=== PATIENT | female | born 1965 | race Caucasian/White ===

== ENCOUNTER 2020-07-30 05:07 | Observation (INO) ==
--- NOTE | 2020-06-28 13:49 | PAT Medication Instructions ---
Medication Instructions Date of Service June 28, 2020 Home Medications aspirin 81 mg tablet,delayed release 81 mg PO QAM ibuprofen 200 mg tablet 600 mg PO Q6H PRN acetaminophen-codeine [Tylenol-Codeine #3] 1 tab PO BID PRN buspirone 5 mg PO BID diazepam [Valium] 10 mg PO TID fluoxetine [Prozac] 20 mg PO QAM fluticasone propionate [Flonase] 2 spray INTRANASAL HS gabapentin 100 mg PO TID glimepiride 2 mg PO QAM insulin lispro [Humalog KwikPen Insulin] 5 unit SUBCUT TID liraglutide [Victoza 2-Yao] 1.8 mg SUBCUT QAM lisinopril 10 mg PO QAM nifedipine 90 mg PO QAM ropinirole 0.5 mg PO HS simvastatin 20 mg PO HS ASK your surgeon for instructions ibuprofen 200 mg tablet 600 mg PO Q6H PRN DO NOT take the morning of surgery glimepiride 2 mg PO QAM insulin lispro [Humalog KwikPen Insulin] 5 unit SUBCUT TID lisinopril 10 mg PO QAM Take morning of surgery With a small sip of water, OTHERWISE NOTHING TO EAT OR DRINK AFTER MIDNIGHT: aspirin 81 mg tablet,delayed release 81 mg PO QAM acetaminophen-codeine [Tylenol-Codeine #3] 1 tab PO BID PRN (okay to take up to 4 hours prior to surgery if needed) buspirone 5 mg PO BID diazepam [Valium] 10 mg PO TID fluoxetine [Prozac] 20 mg PO QAM gabapentin 100 mg PO TID liraglutide [Victoza 2-Yao] 1.8 mg SUBCUT QAM nifedipine 90 mg PO QAM Take evening before surgery acetaminophen-codeine [Tylenol-Codeine #3] 1 tab PO BID PRN (if needed) buspirone 5 mg PO BID diazepam [Valium] 10 mg PO TID fluticasone propionate [Flonase] 2 spray INTRANASAL HS gabapentin 100 mg PO TID insulin lispro [Humalog KwikPen Insulin] 5 unit SUBCUT TID ropinirole 0.5 mg PO HS simvastatin 20 mg PO HS Other Notes If you have any questions please call us at [phone] or [phone] or [phone] or [phone]
--- NOTE | 2020-06-29 13:02 | Anesthesiology Consultation ---
Date of Service June 29, 2020 Assessment & Plan (1) Encounter for pre-operative examination: - Difficult stick: Difficulty at obtaining preop labs during PAT visit (patient refusing further attempts). Able to obtain tubes for all preop labs except T&S. Patient denies hx of blood transfusions. July at surgeon's office made aware. Will plan for T&S AM DOS unless surgeon wishes to arrange for patient to have done prior. - Cardiology: Patient states they are scheduled to see cardiology prior to bethany rachel. Awaiting office visit note and most recent ECHO. - Per assessment on 06/29: Travel screen negative. No known COVID-19 positive co ntacts or current COVID-19 related symptoms. Surgeon arranging preop COVID testing (per Gloria at surgeon's office, they are attempting to have patient do preop COVID testing closer to home/[place] but official location [facility]). Awaiting results. - Check BSG AM DOS Chart Review Chart Review: Patient seen in Pre Admission Testing Teaching & Discussion Pre-Anesthesia Teaching/Discussion Notes: Instructed NPO after midnight before surgery,except medications with 15 cc of water. Medication instructions provided according to the PAT guidelines. History Surgery Operation Date: 08/06/20 07:15 Proposed Procedures p Left Total Knee Arthroplasty - Chad Zapata, Height/Weight Height: 5 ft 10 in Weight: 151.2 kg Allergies Allergy/AdvReac Type Severity Reaction Status Date / Time sulfamethoxazole Allergy Intermediate Hives Verified 06/28/20 12:05 [From Bactrim] trimethoprim [From Bactrim] Allergy Intermediate Hives Verified 06/28/20 12:05 Medications Home Medications Medication Instructions Recorded Confirmed Last Taken aspirin 81 mg tablet,delayed 81 mg PO QAM 06/02/20 06/28/20 Unknown release ibuprofen 200 mg tablet 600 mg PO Q6H PRN 06/02/20 06/28/20 Unknown acetaminophen-codeine 1 tab PO BID PRN 06/28/20 06/28/20 Unknown [Tylenol-Codeine #3] buspirone 5 mg PO BID 06/28/20 06/28/20 Unknown diazepam [Valium] 10 mg PO TID 06/28/20 06/28/20 Unknown fluoxetine [Prozac] 20 mg PO QAM 06/28/20 06/28/20 Unknown fluticasone propionate [Flonase] 2 spray INTRANASAL HS 06/28/20 06/28/20 Unknown gabapentin 100 mg PO TID 06/28/20 06/28/20 Unknown glimepiride 2 mg PO QAM 06/28/20 06/28/20 Unknown insulin lispro [Humalog KwikPen 5 unit SUBCUT TID 06/28/20 06/28/20 Unknown Insulin] liraglutide [Victoza 2-Yao] 1.8 mg SUBCUT QAM 06/28/20 06/28/20 Unknown lisinopril 10 mg PO QAM 06/28/20 06/28/20 Unknown nifedipine 90 mg PO QAM 06/28/20 06/28/20 Unknown ropinirole 0.5 mg PO HS 06/28/20 06/28/20 Unknown simvastatin 20 mg PO HS 06/28/20 06/28/20 Unknown Wheeled Walker #1 ea 06/29/20 06/29/20 Unknown Past Medical History Medical History Arthritis Asthma stable Depression Diabetes mellitus, type 2 IDDM Hyperlipidemia Hypertension Insomnia Morbid obesity Myocardial Infarction 10 years ago > medical management Peripheral neuropathy Restless leg syndrome Tricuspid valve disease Tricuspid regurgitation (no further details per patient), follows with cardiology (Dr. Valladares) Exercise / Class Metabolic Activity III < 4 Walking/Shop/Light housework Past Family History Family History Other No family history of adverse response to anesthesia Past Surgical History Surgical History History of cardiac cath 10 years ago > no stents ([place]) History of carpal tunnel release R/L History of cholecystectomy History of colonoscopy History of hysterectomy History of knee replacement Right History of tonsillectomy and adenoidectomy [place] teeth removed Past Anesthesia History No Hx of Anesthesia Complications and No Family Hx of Anesthesia Complications History of PONV No Hx of PONV and No Hx of Motion Sickness Social History Smoking Status: Former smoker tobacco type: cigarettes Do You Dip or Chew Tobacco: No Smoking End Date: Quit 40 year ago (hx tobacco use x one month) Hx Alcohol Use: No Hx Substance Use: No substance use type: does not use Review of Systems Patient denies chest pain, shortness of breath, dyspnea on exertion, joint pain, reflux, cough, wheezing, palpitations. Physical Exam Vital Signs VITALS BP 114/69 P 63 TEMP 97.8 SP02 93%RA RESP 18 PHYSICAL Full neck and c-spine range of motion. Full TMJ range of motion. TMD 4 finger breaths Mallampati Score 3 Dentition: partial on upper Lungs: clear throughout to auscultation Cardiac: regular rate and rhythm, no murmurs noted Spine: normal Carotid arteries: negative bruit Extremities: no edema Thick neck Testing Laboratory Results 06/29/20 13:31 06/29/20 13:31 PT 10.2 Seconds (9.0-12.0) 06/29/20 13:31 INR 1.0 (0.9-1.1) 06/29/20 13:31 APTT 26.8 Seconds (21.0-31.0) 06/29/20 13:31 Hemoglobin A1c 7.2 % (4.5-5.6) H 06/29/20 13:31 Electrocardiogram Date: 06/29/20 NSR at 60bpm. RBBB. Chest X-Ray Date: 06/29/20 FINDINGS: The heart is the upper limits of normal in size. There is no failure. There is no focal pulmonary consolidation. There are no pleural effusions. There is a mild scoliosis. IMPRESSION: No active disease in the chest.
--- NOTE | 2020-06-29 14:16 | XRay Report ---
XR chest Pre-admission PA/Lat CLINICAL HISTORY: Preoperative chest COMPARISON STUDY: No previous studies for comparison. FINDINGS: The heart is the upper limits of normal in size. There is no failure. There is no focal pul monary consolidation. There are no pleural effusions. There is a mild scoliosis.[ IMPRESSION: No active disease in the chest. ACT 112: Negative or not required by law. Electronically signed by: Massimo Sen M.D. 06/29/2020 2:15 PM
[2020-06-29 15:00] LABS: Basophils # (auto) 0.04 K/uL (0-0.2); Basophils % (auto) 0.5 %; Eosinophils # (auto) 0.16 K/uL (0-0.5); Hematocrit (blood only) 36.9 % (37-47); Hemoglobin 11.8 g/dL (12.0-16.0); Immature Granulocytes # (auto) 0.02 K/uL (0.00-0.02); Immature Granulocytes % (auto) 0.3 %; Lymphocytes # (auto) 2.81 K/uL (1.2-3.4); Lymphocytes % (auto) 35.1 %; Mean Corpuscular Hemoglobin 29.1 pg (25-34); Mean Corpuscular Volume 90.9 fL (80-100); Mean Platelet Volume 10.3 fL (7.4-10.4); Monocytes # (auto) 0.39 K/uL (0.11-0.59); Monocytes % (auto) 4.9 %; Neutrophils # (auto) 4.58 K/uL (1.4-6.5); Neutrophils % (auto) 57.2 %; Platelet Count 238 K/uL (130-400); RDW Coefficient of Variation 14.4 % (11.5-14.5); RDW Standard Deviation 48.1 fL (36.4-46.3); Red Blood Count 4.06 M/uL (4.2-5.4)
[2020-06-29 15:15] LABS: Partial Thromboplastin Time 26.8 Seconds (21.0-31.0); Prothrombin Time 10.2 Seconds (9.0-12.0)
[2020-06-29 15:24] LABS: BUN Creatinine Ratio 25.9 (10-20); Creatinine Clr Calc Pharmacy 169.9 ml/min; Est GFR (African American) 118.9; Est GFR (Non-African American) 102.6; Potassium 3.6 mmol/L (3.5-5.1)
--- NOTE | 2020-06-29 17:05 | Electrocardiogram Report ---
Test Reason : Blood Pressure : / mmHG Vent. Rate : 060 BPM Atrial Rate : 060 BPM P-R Int : 170 ms QRS Dur : 150 ms QT Int : 484 ms P-R-T Axes : 049 076 024 degrees QTc Int : 484 ms Normal sinus rhythm Right bundle branch block Abnormal ECG No previous ECGs available Confirmed by Louis Maguire ([id number]) on 06/29/2020 5:05:15 PM Referred By: Chad Zapata Confirmed By:Louis Maguire
[2020-06-30 06:12] LABS: Estimated Average Glucose 160 mg/dl; Hemoglobin A1C 7.2 % (4.5-5.6)
--- NOTE | 2020-07-29 15:23 | History & Physical Report ---
Date of Service July 29, 2020 Assessment & Plan (1) Osteoarthritis of left knee: We will proceed with a left total knee arthroplasty. Postoperatively she will be kept overnight in the hospital and started on aspirin for DVT prophylaxis. She plans to use home health upon discharge. She was hoping the case management at the hospital could help set that up. History of Present Illness Chief Complaint: Osteoarthritis of the left knee. Primary Care Provider: NO PCP Alysha is a pleasant 55-year-old female who is been dealing with chronic incr easing left knee pain. She has been seeing [facility] was given her multiple injections. Off fortunately, the injections are no longer helping. She has a BMI of 47.3. She is a history of a right knee replacement done [address] Sales and did well with that. After discussions in the office, she elected proceed with a left total knee arthroplasty.. Allergies Allergy/AdvReac Type Severity Reaction Status Date / Time sulfamethoxazole Allergy Intermediate Hives Verified 06/28/20 12:05 [From Bactrim] trimethoprim [From Bactrim] Allergy Intermediate Hives Verified 06/28/20 12:05 Home Medications Medication Instructions Recorded Confirmed Type aspirin 81 mg tablet,delayed 81 mg PO QAM 06/02/20 06/28/20 History release ibuprofen 200 mg tablet 600 mg PO Q6H PRN 06/02/20 06/28/20 History acetaminophen-codeine 1 tab PO BID PRN 06/28/20 06/28/20 History [Tylenol-Codeine #3] buspirone 5 mg PO BID 06/28/20 06/28/20 History diazepam [Valium] 10 mg PO TID 06/28/20 06/28/20 History fluoxetine [Prozac] 20 mg PO QAM 06/28/20 06/28/20 History fluticasone propionate [Flonase] 2 spray INTRANASAL HS 06/28/20 06/28/20 History gabapentin 100 mg PO TID 06/28/20 06/28/20 History glimepiride 2 mg PO QAM 06/28/20 06/28/20 History insulin lispro [Humalog KwikPen 5 unit SUBCUT TID 06/28/20 06/28/20 History Insulin] liraglutide [Victoza 2-Yao] 1.8 mg SUBCUT QAM 06/28/20 06/28/20 History lisinopril 10 mg PO QAM 06/28/20 06/28/20 History nifedipine 90 mg PO QAM 06/28/20 06/28/20 History ropinirole 0.5 mg PO HS 06/28/20 06/28/20 History simvastatin 20 mg PO HS 06/28/20 06/28/20 History Wheeled Walker #1 ea 06/29/20 06/29/20 Rx Past Med/Surg History Medical History Arthritis Asthma stable Depression Diabetes mellitus, type 2 IDDM Hyperlipidemia Hypertension Insomnia Mild scoliosis Morbid obesity Myocardial Infarction 10 years ago > medical management Peripheral neuropathy Restless leg syndrome Tricuspid valve disease Tricuspid regurgitation (no further details per patient), follows with cardiology (Dr. Valladares) Surgical History History of cardiac cath 10 years ago > no stents ([place]) History of carpal tunnel release R/L History of cholecystectomy History of colonoscopy History of hysterectomy History of knee replacement Right History of tonsillectomy and adenoidectomy [place] teeth removed Family History Other No family history of adverse response to anesthesia Social History Smoking Status: Never smoker Smoking End Date: Quit 40 year ago (hx tobacco use x one month); Second Hand Exposure: No; Do You Dip or Chew Tobacco: No; Tobacco Cessation Education Requested by Patient: No Hx Alcohol Use: No Hx Substance Use: No Preferred Language: Croatian [employer] Required: No Beliefs That Will Affect Care: None Current Living Situation: Family Current Living Situation Comment: DAUGHTER AND GRANDSON Feels Safe at Home: Yes Safety Concerns: Feels Safe At This Time Assistive Devices: Cane Assistive Devices Comment: PARTIAL PLATES Review of Systems All systems reviewed & are unremarkable except as noted in HPI & below. Physical Exam On physical examination of the left knee, she has a large soft tissue envelope. She has range of motion from 5 to 120 degrees. She has no instability. She has pain over the distal medial and lateral femoral condyles.. Constitutional WD/WN, vitals as above Eyes PERRL, conjunctivae normal, anicteric sclerae ENMT external ear and nose normal, oropharynx normal Neck trachea midline, no thyromegaly Respiratory normal respiratory effort Cardiovascular RRR, no murmur, no edema Gastrointestinal (Abdomen) normal bowel sounds, soft, nontender, no hepatosplenomegaly Psychiatric A+Ox3, euthymic affect Results & Data Results & Data Laboratory Results . Diagnostic Findings X-rays of the left knee do show advanced osteoarthritis with joint space narrowing, osteophyte formation, and [id number] articulation.. PG Care Time/CCT Total # of Minutes Spent Total Time Spent with Patient: Total time spent is greater than 50% in coordination of care (as documented) at patient's floor/unit and/or counseling patient: Coding Level of Care Code None Diagnoses Osteoarthritis of left knee M17.12
[2020-07-30] MEDS ORDERED: ROPIVACAINE 0.5% HCL/PF 150 MG, BUPIVACAINE 0.75% MPF 20 ML, EPINEPHrine 30MG/30ML (OR ... INSTIL SCH (06:00)
[2020-07-30] MEDS ORDERED: TRANEXAMIC ACID 1,000 MG **IV Pre-op IV SCH (06:00)
[2020-07-30] MEDS ORDERED: ACETAMINOPHEN 500 MG TAB PO SCH (06:00)
[2020-07-30] MEDS ORDERED: FAMOTIDINE 20 MG TAB PO SCH (06:00)
[2020-07-30] MEDS ORDERED: LR 500ML BOLUS, THEN 15ML/HR IV SCH (06:00)
[2020-07-30] MEDS ORDERED: GABAPENTIN 300 MG CAP PO SCH (06:00)
[2020-07-30] MEDS ORDERED: LR 60ML/HR IV SCH (06:00)
[2020-07-30] MEDS ORDERED: dexAMETHasone 4 MG TAB PO SCH (06:00)
[2020-07-30] MEDS ORDERED: TRANEXAMIC ACID 1,000 MG **IV Intra-op IV SCH (06:00)
[2020-07-30] MEDS ORDERED: ROPIVACAINE 0.5% 5 MG/ML 30 ML VIAL ONE (06:18)
[2020-07-30] MEDS ORDERED: BUPIVACAINE 0.5 % 5 MG/1 ML PF 10ML VIAL ONE (06:18)
[2020-07-30] MEDS ORDERED: EPINEPHrine INJ 1 MG/ML AMP ONE (06:18)
[2020-07-30] MEDS ORDERED: ORTHO JOINT ANESTHETIC ONE (06:29)
--- NOTE | 2020-07-30 06:33 | History & Physical Bridge Note ---
Date of Service July 30, 2020 History & Physical Bridge Note I have examined the patient, reviewed the History & Physical and in the interval since the performance of the History & Physical I have noted the following changes of clinical significance: no changes noted
[2020-07-30] MEDS ORDERED: MIDAZOLAM HCL 1 MG/ML 2ML VIAL ONE ×2 (06:41→07:15)
[2020-07-30] MEDS ORDERED: fentaNYL citrate 100 MCG/2 ML VIAL ONE (06:41)
[2020-07-30] MEDS ORDERED: ATROPINE SULFATE 0.1 MG/ML 10ML SYR IV PRN (07:16)
[2020-07-30] MEDS ORDERED: MEPERIDINE HCL 25 MG/ML CARP/VIAL IV PRN (07:16)
[2020-07-30] MEDS ORDERED: LABETALOL HCL IV 5 MG/ML 20ML IV PRN (07:16)
[2020-07-30] MEDS ORDERED: ePHEDrine sulfate 50 MG/ML AMP IV PRN (07:16)
[2020-07-30] MEDS ORDERED: PHENYLEPHRINE 100MCG/ML 5ML SYR IV PRN (07:16)
[2020-07-30] MEDS ORDERED: fentaNYL citrate 100 MCG/2 ML VIAL IV PRN (07:16)
[2020-07-30] MEDS ORDERED: HYDROmorphone INJ 1 MG/ML SYRINGE IV PRN (07:16)
[2020-07-30] MEDS ORDERED: ONDANSETRON INJ 2 MG/ML 2 ML VIAL IV PRN ×2 (07:16→10:26)
[2020-07-30] MEDS ORDERED: PROPOFOL IV EMULSION 10 MG/ML 20 ML VIAL IV ONE (07:29)
[2020-07-30] MEDS ORDERED: ONDANSETRON INJ 2 MG/ML 2 ML VIAL ONE (07:29)
[2020-07-30] MEDS ORDERED: LIDOCAINE HCL 2% 2 ML VIAL/AMP(20MG/ML) INFIL ONE (07:29)
--- NOTE | 2020-07-30 08:49 | Operative Report ---
PG Post Operative Report Pre & Post Diagnosis Operation Date: 07/30/20 07:00 Pre-Op Diagnosis: Degenerative Joint Disease Left Knee Post-Op Diagnosis: Degenerative Joint Disease Left Knee I identified the patient and participated in the time-out.: Yes Procedure Operation Date: 07/30/20 07:00 Actual Procedures p Left Total Knee Arthroplasty, Cemented(Left) - Chad Zapata DO Surgeon Chad Zapata DO [employer] Chad Matute PAC Estimated Blood Loss 10 Findings Consistent with Post-Op Diagnosis Specimens Left femoral and tibial bone Complications none Disposition Disposition: Recovery Room Indications Alysha is a pleasant 55-year-old female who is been dealing with chronic increasing left knee pain. X-rays and clinical examination were diagnostic for advanced osteoarthritis of the left knee. After extensive discussions regarding her weight, and after failing years of conservative treatment, she has elected proceed with a left total knee arthroplasty. Description of Procedure Implants used: I used a Augustus Persona total knee arthroplasty system with a size 8 standard femur, E tibia with a 30 mm stem, 35 patella, and a size 10 CPS polyethylene bearing. All components were cemented in place with Simplex HV cement. Alysha arrived [facility] for the above procedure. She was seen in the preoperative holding area and the operative extremity was identified and signed. She was given a preoperative antibiotic, TXA, a spinal anesthetic and an adductor nerve block. She was taken back to the operating room and laid on the table in supine position. She was given basic sedation. The operative knee was then prepped and draped in sterile fashion. A timeout was done, and the patient and the operative extremity was properly identified. A midline incision was made directly over the patella. Dissection was taken down to the extensor mechanism. A subvastus arthrotomy was used. The medial retinaculum was released and the fat pad was mostly excised. The knee was flexed and the ACL, PCL, and meniscus were removed. A drill was sent down the center of the femoral canal followed by an intramedullary meghana. Off that meghana a distal femoral cutting block was placed. 9 mm was resected off the distal femur at 5 of valgus. A posterior referencing AP sizing guide was then placed on the distal femur. The femur measured to be a size 8. 2 drill holes were placed in 3 of external rotation. A 4-in-1 cutting block was then impacted into place. Anterior, posterior, and chamfer cuts were then made. The box was then resected for the posterior stabilizing component the proximal tibia was then exposed. An external tibial alignment guide was placed. A tibial cut guide was then anchored in place and the proximal tibia was then resected. The posterior aspect of the knee was then opened up and any additional meniscus fragments and osteophytes were removed. The tibia measured to be a size E. The tibial plate was then placed in the appropriate rotation and the tibia was drilled and punched. Trial components were then placed. I used a size 10 CPS polyethylene insert. The knee was brought through a full range of motion and felt to be stable. The peg holes for the femoral component were then drilled. The patella was then everted and 9 mm was resected off the posterior aspect of the patella. The patella measured to be a size 35. 3 peg holes were then drilled. A trial patella was placed. The knee was once again brought through a full range of motion and felt to be stable. Trial components were then removed. The surrounding soft tissues were injected with 100 cc of an orthopedic pain control cocktail. All components were then cemented into place with Simplex HV cement. The final polyethylene insert was then snapped into place. Once cement was dry the tourniquet was deflated. Hemostasis was obtained. A dilute betadyne lavage was then done for 3 minutes. The joint was then irrigated with normal saline solution. The subvastus arthrotomy was then closed with #1 Vicryl suture. The skin was closed with 2-0 Vicryl, 3-0V lock suture, and john. A Silverlon and a soft compressive dressing were placed. She was then transferred to a hospital bed and taken to the postanesthesia care unit in stable condition. She tolerated the procedure well. Chad Matute PA-C, was present for the entire procedure. He was critical for patient positioning, prepping, draping, retraction exposure, wound closure and application of sterile dressing. I attest to the content of the Intraoperative Record and any orders documented therein. Any exceptions are noted below.
--- NOTE | 2020-07-30 09:31 | XRay Report ---
XR knee LT 1 or 2V routine CLINICAL HISTORY: Postoperative evaluation. COMPARISON: Knee radiographs June 02, 2020. FINDINGS: Alignment of the total left knee arthroplasty is anatomic. There is no periprosthetic frac ture or unexpected radiopaque foreign body. There are skin john. IMPRESSION: Expected findings following total left knee arthroplasty. ACT 112: Negative or not required by law. Electronically signed by: Bradly Wolfe M.D. 07/30/2020 9:30 AM
--- NOTE | 2020-07-30 09:41 | Anesthesiology Progress Note ---
Date of Service July 30, 2020 Anesthesia Post Procedure Vital Signs Vital Signs: Temp Pulse Pulse Resp BP Pulse Ox 07/30/20 09:30 36.9 C 76 15 117/59 L 94 07/30/20 09:20 78 14 119/69 96 07/30/20 09:10 85 14 99/62 L 96 07/30/20 09:00 37.3 C 91 H 16 132/69 98 07/30/20 05:48 36.8 C 71 20 153/96 H 97 Pain Intensity Left Knee: Pain Intensity: 0 Transfer of Care Handoff Completed per policy Notes Mental Status: alert / awake / arousable Patient Amnestic to Procedure: Yes Nausea / Vomiting: adequately controlled Pain: adequately controlled Airway Patency, RR, SpO2: stable & adequate BP & HR: stable & adequate Hydration State: stable & adequate Neuraxial Anesthesia: was administered and sensory block is resolving Anesthetic Complications: no major complications apparent and Pt Satisfied with anesthetic care
[2020-07-30] MEDS: SODIUM CHLORIDE 0.9% 1000ML 1,000 ML IV SCH ×2 (10:10→20:32)
[2020-07-30] MEDS ORDERED: MAGNESIUM HYDROXIDE SUSP 30 ML UDC PO PRN (10:26)
[2020-07-30] MEDS ORDERED: HYDROmorphone INJ 0.5 MG/0.5 ML SYR IV PRN (10:26)
[2020-07-30] MEDS ORDERED: NALOXONE HCL 0.4 MG/1 ML VIAL/CARP IV PRN (10:26)
[2020-07-30] MEDS ORDERED: bisacodyL 10 MG SUPP PR PRN (10:26)
[2020-07-30] MEDS ORDERED: METOCLOPRAMIDE HCL INJ 5 MG/ML 2 ML VIAL IV PRN (10:26)
[2020-07-30] MEDS ORDERED: PHARMACY GLYCEMIC MGMT CONSULT PRN (10:41)
[2020-07-30] MEDS ORDERED: GLUCAGON FOR INJ 1 MG VIAL IM PRN (10:45)
[2020-07-30] MEDS ORDERED: DEXTROSE 50% 50 ML SYRINGE IV PRN (10:45)
[2020-07-30] MEDS ORDERED: GLUCOSE 10 TABS/TUBE PO PRN (10:45)
[2020-07-30] MEDS ORDERED: GLUCOSE 40% GEL 15 GM TUBE PO PRN (10:45)
[2020-07-30] MEDS ORDERED: CARBOHYDRATES FOR HYPOGLYCEMIA PO PRN (10:45)
--- NOTE | 2020-07-30 10:52 | Pharmacy Report ---
Pharmacy Glycemic Short Note 2 - Date of Service July 30, 2020 - Glycemic Short BSG Results (Last 24 hours): 07/30/20 07/30/20 05:36 09:07 POC Glucose 129 H 159 H OUTPATIENT ANTIDIABETIC REGIMEN: * Humalog 5 units TIDM * Victoza 1.8 mg SC qAM * Glimepiride 2 mg PO daily * HbA1c: 7.2% (06/29/20) ASSESSMENT: * SM is a 55 year old female POD #0 s/p left total knee arthroplasty * Received dexamethasone 8 mg PO x 1 + intra-articular ortho-mix containing dexamethasone * Preoperative BSG of 129 mg/dL, postoperative BSG of 159 mg/dL * Will cover steroids with single dose of NPH and aggressive Novolog parameters PLAN FOR INPATIENT GLYCEMIC CONTROL: * Hold outpatient oral diabetes medications * Basal insulin * NPH 25 units (~0.25 unit/kg of adjusted body weight) SC x 1 * Bolus insulin * NovoLog per scale ACHS or Q6hrs while NPO * Goal Range: Low 110 mg/dL - High 140 mg/dL * Correction Factor: 15 mg/dL/unit * Nutritional / Prandial insulin per carb ratio of 1 unit per 5 grams CHO consumed * Overnight checks this evening at 00,04 with same parameters PLAN FOR DISCHARGE: * HbA1c is slightly elevated at 7.2% - reasonable goal for most non- adults is less than 7% * Would suggest addition of metformin XR 500 mg PO daily, as this is considered first-line treatment of T2DM * Typically the XR formulation of metformin is better tolerated than the immediate release formulation. Continue to titrate metformin dosing upwards as recommended and tolerated. Dosage increases should be made in increments of 500 mg weekly, up to 2,000 mg/day PO, given in divided doses.
[2020-07-30] MEDS ORDERED: NovoLIN-N (NPH) PER UNIT CHARGE SQ ONE (11:00)
[2020-07-30] MEDS ORDERED: PNEUMOCOCCAL ADMINISTRATION CHARGE ONE (11:13)
[2020-07-30] MEDS ORDERED: PNEUMOCOCCAL POLYSACCHARIDES 25 MCG/0.5 ML VIAL/SYR IM ONE (11:13)
[2020-07-30] MEDS: busPIRone 5 MG TAB PO SCH ×2 (11:23→20:43)
[2020-07-30] MEDS: NIFEdipine EXTENDED REL 30 MG TABCR PO SCH (11:23)
[2020-07-30] MEDS: GABAPENTIN 100 MG CAP PO SCH ×3 (11:23→20:45)
[2020-07-30] MEDS: FLUoxetine HCL 20 MG CAP PO SCH (11:24)
[2020-07-30] MEDS: lisinopril 10 MG TAB PO SCH (11:24)
[2020-07-30] MEDS: DOCUSATE SODIUM 100 MG CAP PO SCH ×2 (11:24→20:43)
[2020-07-30] MEDS: KETOROLAC 30 MG/ML VIAL IV SCH ×2 (11:25→18:10)
[2020-07-30] MEDS: ASPIRIN 81 MG ECTAB PO SCH ×2 (11:25→20:43)
[2020-07-30] MEDS: MULTIVITAMIN TAB PO SCH (11:25)
[2020-07-30] MEDS: INSULIN ASPART 100 UNITS/ML 3 ML PEN SC SCH ×3 (13:05→21:32)
[2020-07-30] MEDS: ACETAMINOPHEN 500 MG TAB PO SCH ×2 (13:05→21:32)
[2020-07-30] MEDS: ceFAZolin 2000MG 2,000 MG/15 ML SYR IV SCH ×2 (15:16→22:32)
[2020-07-30] MEDS: oxyCODONE HCL IR 5 MG TAB (IMMEDIATE RELEASE) PO PRN ×2 (15:21→21:31)
[2020-07-30] MEDS: SENNA 8.6 MG TAB PO SCH (20:42)
[2020-07-30] MEDS: SIMVASTATIN 20 MG TAB PO SCH (20:43)
[2020-07-30] MEDS: rOPINIRole HCL 0.25 MG TABLET PO SCH (20:44)
[2020-07-30] MEDS: FLUTICASONE PROPIONATE NA SPR 16 GM BTL SCH (20:44)
[2020-07-31] MEDS: KETOROLAC 30 MG/ML VIAL IV SCH ×5 (00:02→23:05)
[2020-07-31] MEDS: INSULIN ASPART 100 UNITS/ML 3 ML PEN SC SCH ×6 (00:09→21:48)
[2020-07-31] MEDS: ACETAMINOPHEN 500 MG TAB PO SCH ×3 (04:50→21:50)
[2020-07-31] MEDS: oxyCODONE HCL IR 5 MG TAB (IMMEDIATE RELEASE) PO PRN ×4 (05:50→23:07)
--- NOTE | 2020-07-31 06:57 | Orthopedic Progress Note ---
Date of Service July 31, 2020 Assessment & Plan (1) Status post left knee replacement: Overall she is doing well. She is not having too much pain in the left knee. She will be seen by physical therapy today for ambulation and range of motion exercises. She is on aspirin for DVT prophylaxis. She does live alone. We will keep her in the hospital today for physical therapy and pain control. We plan to discharge her to home tomorrow. Teresa Encarnacion was seen and examined at bedside this morning. Overall she is doing fairly well. She had a little bit of drainage through her dressing last night and that was reinforced. She is not having too much pain in the knee. She has no other complaints.. Review of Systems All systems reviewed & are unremarkable except as noted in HPI & below. Physical Exam Physical examination of the left knee shows the dressing to be reinforced but it is currently clean and dry. Her leg is out full extension. She has active dorsiflexion and plantarflexion of her left ankle.. Results & Data Results & Data Laboratory Results . Diagnostic Findings Postoperative x-rays of the left knee show the prosthesis to be in anatomic alignment without any evidence of fracture, dislocation, or loosening. PG Care Time/CCT Total # of Minutes Spent Total Time Spent with Patient: Total time spent is greater than 50% in coordination of care (as documented) at patient's floor/unit and/or counseling patient: Coding Level of Care Code 71475 Post Operative Follow-Up Diagnoses Status post left knee replacement Z96.652
[2020-07-31] MEDS: ASPIRIN 81 MG ECTAB PO SCH ×2 (08:52→21:50)
[2020-07-31] MEDS: lisinopril 10 MG TAB PO SCH (08:53)
[2020-07-31] MEDS: MULTIVITAMIN TAB PO SCH (08:53)
[2020-07-31] MEDS: busPIRone 5 MG TAB PO SCH ×2 (08:53→21:49)
[2020-07-31] MEDS: NIFEdipine EXTENDED REL 30 MG TABCR PO SCH (08:53)
[2020-07-31] MEDS: FLUoxetine HCL 20 MG CAP PO SCH (08:53)
[2020-07-31] MEDS: GABAPENTIN 100 MG CAP PO SCH ×3 (08:53→21:49)
[2020-07-31] MEDS: DOCUSATE SODIUM 100 MG CAP PO SCH ×2 (08:53→21:50)
[2020-07-31] MEDS ORDERED: LANTUS PER UNIT CHARGE SQ ONE (09:00)
--- NOTE | 2020-07-31 11:01 | Pharmacy Report ---
Pharmacy Glycemic Short Note 2 - Date of Service July 31, 2020 - Glycemic Short BSG Results (Last 24 hours): 07/30/20 07/30/20 07/30/20 12:04 17:08 20:11 POC Glucose 208 H 269 H 237 H 07/30/20 07/31/20 07/31/20 23:58 04:32 08:18 POC Glucose 194 H 191 H 209 H OUTPATIENT ANTIDIABETIC REGIMEN: * Humalog 5 units TIDM * Victoza 1.8 mg SC qAM * Glimepiride 2 mg PO daily * HbA1c: 7.2% (06/29/20) ASSESSMENT: 07/31: * Pt received total of 75 units of insulin: basal NPH 25 units and bolus 50 units * Steroids are not continued today but since patient was on 3 anti-diabetic meds at home which included insulin with meals, will add a basal Lantus dose while admitted. Also, fasting BSG was 209 mg/dl today. * Further, Novolog parameters tightened since post prandial BSGs were all elevated above 200 yesterday. 07/30: * SM is a 55 year old female POD #0 s/p left total knee arthroplasty * Received dexamethasone 8 mg PO x 1 + intra-articular ortho-mix containing dexamethasone * Preoperative BSG of 129 mg/dL, postoperative BSG of 159 mg/dL * Will cover steroids with single dose of NPH and aggressive Novolog parameters PLAN FOR INPATIENT GLYCEMIC CONTROL: * Hold outpatient oral diabetes medications * Basal insulin * Lantus 17 units (~0.17 unit/kg of adjusted body weight) SC x 1 this AM. Re- assess tomorrow AM. * Bolus insulin: tightened CF/CR * NovoLog per scale ACHS or Q6hrs while NPO * Goal Range: Low 110 mg/dL - High 140 mg/dL * Correction Factor: 15 mg/dL/unit * Nutritional / Prandial insulin per carb ratio of 1 unit per 4.5 grams CHO consumed * Overnight checks this evening at 00,04 with same parameters PLAN FOR DISCHARGE: * HbA1c is slightly elevated at 7.2% - reasonable goal for most non- adults is less than 7% * Would suggest addition of metformin XR 500 mg PO daily, as this is considered first-line treatment of T2DM * Typically the XR formulation of metformin is better tolerated than the immediate release formulation. Continue to titrate metformin dosing upwards as recommended and tolerated. Dosage increases should be made in increments of 500 mg weekly, up to 2,000 mg/day PO, given in divided doses.
[2020-07-31] MEDS: rOPINIRole HCL 0.25 MG TABLET PO SCH (21:49)
[2020-07-31] MEDS: FLUTICASONE PROPIONATE NA SPR 16 GM BTL SCH (21:49)
[2020-07-31] MEDS: SIMVASTATIN 20 MG TAB PO SCH (21:50)
[2020-07-31] MEDS: SENNA 8.6 MG TAB PO SCH (21:50)
[2020-08-01] MEDS: KETOROLAC 30 MG/ML VIAL IV SCH (05:49)
[2020-08-01] MEDS: ACETAMINOPHEN 500 MG TAB PO SCH (05:49)
--- NOTE | 2020-08-01 08:46 | Orthopedic Progress Note ---
Date of Service August 01, 2020 Assessment & Plan (1) Status post left knee replacement: Overall she is doing as well as expected. She will be seen again by therapy today for ambulation and range of motion exercises. She is on aspirin for DVT prophylaxis. She can be discharged home later today. She will follow- up with orthopedics in 2 weeks. Teresa Encarnacion was seen and examined at bedside this morning. Overall she is doing very well. She has not had much pain in the left knee. She has been ambulating with physical therapy. She has no complaints.. Review of Systems All systems reviewed & are unremarkable except as noted in HPI & below. Physical Exam On physical examination of the left knee, the dressing has been changed. Her leg is out full extension. She has active dorsiflexion and plantarflexion of the left ankle.. Results & Data Results & Data Laboratory Results . Diagnostic Findings . PG Care Time/CCT Total # of Minutes Spent Total Time Spent with Patient: Total time spent is greater than 50% in coordination of care (as documented) at patient's floor/unit and/or counseling patient: Coding Level of Care Code 35284 Post Operative Follow-Up Diagnoses Status post left knee replacement Z96.652
--- NOTE | 2020-08-01 08:47 | Discharge Summary ---
Date of Service August 01, 2020 Admission HPI (Per Admitting) Alysha is a pleasant 55-year-old female who is been dealing with chronic increasing left knee pain. She has been seeing [facility] was given her multiple injections. Off fortunately, the injections are no longer helping. She has a BMI of 47.3. She is a history of a right knee replacement done [address] Sales and did well with that. After discussions in the office, she elected proceed with a left total knee arthroplasty.. Admission Exam (Per Admitting) On physical examination of the left knee, she has a large soft tissue envelope. She has range of motion from 5 to 120 degrees. She has no instability. She has pain over the distal medial and lateral femoral condyles.. Principal Diagnosis Same as "Discharge Diagnosis" noted below under Discharge Instructions. Discharge Exam On physical examination of the left knee, the dressing has been changed. Her leg is out full extension. She has active dorsiflexion and plantarflexion of the left ankle.. Discharge Data Procedures Performed Operation Date: 07/30/20 07:00 Actual Procedures p Left Total Knee Arthroplasty, Cemented(Left) - Chad Zapata DO Ordered Studies 07/30/20 05:00 US - OR guided needle placemen Routine Hospital Course (1) Status post left knee replacement: On July 30, 2020 Alysha arrived at [facility] and underwent a left total knee arthroplasty without complication. She had a spinal anesthetic. Postoperatively she was started on aspirin for DVT prophylaxis and transferred to the general orthopedic floors. Her hospital course was uneventful. On postop day #1 her vital signs were stable and her pain was well controlled. She was able participate well with physical therapy doing ambulation and range of motion exercises. On postop day #2 she continued to do well. The pain was controlled in her knee. She was seen once again by physical therapy. She was then discharged to home. She will follow-up with orthopedics in 2 weeks. PG Care Time/CCT Total # of Minutes Spent Total Time Spent with Patient: Total time spent is greater than 50% in coordination of care (as documented) at patient's floor/unit and/or counseling patient: Discharge Plan Discharge Items Patient Disposition: Home - Home Health Services Reason For Visit: Degenerative Joint Disease Left Knee Discharge Diagnosis: Left knee replacement Activity: As commented below Non-emergency contact: Surgeon Call non-emergency contact if: your wound has increased redness and your wound has increased drainage Follow-up/Referrals: PCP,NO [Primary Care Provider] - Diet: Carb Consistent or DM2 Addtl Attending Provider Instructions: Activity and Therapy Recommendations: * If you are using [facility] then therapy will be provided at your home until they feel you have accomplished all of your goals. * If you are using [facility] then Physical Therapy will be provided until they feel you are ready to start Outpatient Physical Therapy. * If you are not using home therapy then Outpatient Physical Therapy should start about 3-5 days from your day of surgery. Therapy will last about 6-10 weeks * It is important not to put a pillow under your knee when you are relaxing or sleeping. It is just as important to make sure you are getting your knee perfectly straight as it is to regain your knee bend. * You were shown a series of exercises in the hospital. Do these exercises three times each day including the exercises you were shown in physical therapy. * Get up and walk several times each day. For the first four weeks, try not to stand or walk for more than one hour at a time. If you do stand or walk for more than one hour, you will not hurt anything, but your leg will likely swe ll. * As you feel comfortable, you may change from the walker or crutches to a cane and then to independent walking. Medications: * Narcotic You will likely be sent home from the hospital with a prescription for the narcotic pain medication that worked best throughout your stay. * Aspirin Most patients will be required to take Aspirin 81mg twice a day for 6 weeks after surgery. This is obtained [id number] and a prescription is not necessary. * Other medications may be prescribed for specific circumstances. If you have any questions, please call the office at . * Resume previous home medications unless otherwise instructed TEDs/Elastic Stockings: The white elastic stockings help limit swelling and prevent blood clots from forming in your legs.~ The more you wear them, the more they work. Wear them for six weeks. Dressing Care: You may remove the Darren wrap dressing after 2 days. If the incision is not draining then you may leave the john open to air. If there is a little bit of drainage or if the john are getting stuck on your clothing then cover the incision with a dry dressing. The john will be removed at your 2 week follow-up appointment. Showering: You may shower 5 days after the day of surgery with the john exposed. Let soapy water run over the john and pat them dry. Do not scrub or soak the incision. Things To Watch For: * Drainage from the incision site that occurs more than one week after your surgery. * Increased redness at the incision site. * Fever above 102 degrees Fahrenheit. * Unusual chest pain or shortness of breath. * Call [facility] at with any of the above problems Follow-Up Visit: Follow-up with Dr. Zapata's PA (Chad Matute) 2-3 weeks after your day of surgery. He will remove your john and answer any questions. If you have any additional questions or concerns, Dr Zapata is usually in the office at the same time and will be available An appointment was probably scheduled when you signed-up for surgery in the office. If you have any questions call Office Instructions: More detailed instructions as well as Frequently Asked Questions were provided in a folder by our office when you signed-up for surgery. Please review these instructions when you get home. If you have any further questions or concerns, please feel free to call the office at [phone] Pending Studies at Discharge: No Stand-Alone Forms: [facility], Smoking Cessation Medications and DC Order Prescriptions: New oxycodone 5 mg Tablet 5 mg PO Q4H PRN (Reason: pain) Qty: 60 RF: 0 Continued (DME) Wheeled Walker Misc See Rx Instructions .MEDSUPPLY Qty: 1 RF: 0 ibuprofen 200 mg tablet 600 mg PO Q6H PRN (Reason: Pain) RF: 0 buspirone 5 mg Tablet 5 mg PO BID RF: 0 acetaminophen-codeine [Tylenol-Codeine #3] 300-30 mg Tablet 1 tab PO BID PRN (Reason: Pain) RF: 0 glimepiride 2 mg Tablet 2 mg PO QAM RF: 0 nifedipine [Procardia XL] 90 mg Tablet Extended Release 24hr 90 mg PO QAM RF: 0 simvastatin 20 mg Tablet 20 mg PO HS RF: 0 ropinirole 0.5 mg Tablet 0.5 mg PO HS RF: 0 lisinopril 10 mg Tablet 10 mg PO QAM RF: 0 diazepam [Valium] 10 mg Tablet 10 mg PO TID RF: 0 fluoxetine [Prozac] 20 mg Capsule 20 mg PO QAM RF: 0 fluticasone propionate [Flonase] 50 mcg/actuation [place],Suspension 2 spray INTRANASAL HS RF: 0 insulin lispro [Humalog KwikPen Insulin] 100 unit/mL Insulin Pen 5 unit SUBCUT TID RF: 0 gabapentin 100 mg Tablet 100 mg PO TID RF: 0 Victoza 2-Yao 0.6 mg/0.1 mL (18 mg/3 mL) Pen Injector 1.8 mg SUBCUT QAM RF: 0 Changed aspirin [Adult Low Dose Aspirin] 81 mg tablet,delayed release (DR/EC) 81 mg PO BID 42 Days Qty: 0 RF: 0 Discharge Orders: Discharge Order (Routine); Ordered 08/01/20 Ordered By: Chad Bliss/Other Patient Handouts: Managing Type 2 Diabetes, Managing Diabetes: The A1C Test Admission Data Admit Date/Time: 07/30/20 09:02 Attending Provider: Chad Zapata Admit Provider: Chad Zapata Primary Care Provider: PCPNAE
[2020-08-01] MEDS: INSULIN ASPART 100 UNITS/ML 3 ML PEN SC SCH (08:56)
[2020-08-01] MEDS ORDERED: INSULIN GLARGINE SOLOSTAR 100 UNITS/ML 3 ML PEN SQ SCH (09:00)
[2020-08-01] MEDS: NIFEdipine EXTENDED REL 30 MG TABCR PO SCH (09:00)
[2020-08-01] MEDS: GABAPENTIN 100 MG CAP PO SCH (09:00)
[2020-08-01] MEDS: ASPIRIN 81 MG ECTAB PO SCH (09:00)
[2020-08-01] MEDS: lisinopril 10 MG TAB PO SCH (09:01)
[2020-08-01] MEDS: oxyCODONE HCL IR 5 MG TAB (IMMEDIATE RELEASE) PO PRN ×2 (09:01→12:50)
[2020-08-01] MEDS: FLUoxetine HCL 20 MG CAP PO SCH (09:01)
[2020-08-01] MEDS: MULTIVITAMIN TAB PO SCH (09:01)
[2020-08-01] MEDS: DOCUSATE SODIUM 100 MG CAP PO SCH (09:01)
[2020-08-01] MEDS: busPIRone 5 MG TAB PO SCH (09:01)
== END 2020-08-01 13:48 | disposition home health service (06) ==
LOC: 3E 05:07 → ASU 05:07

== ENCOUNTER 2022-09-04 07:00 | Inpatient (IN) ==
--- NOTE | 2022-08-14 15:19 | PAT Medication Instructions ---
Medication Instructions Date of Service August 14, 2022 Home Medications Medication Instructions Recorded Melania Walker #1 ea 06/29/20 aspirin 81 mg tablet,delayed 81 mg PO BID 42 days #0 tabs 07/31/20 release (Adult Low Dose Aspirin) ibuprofen 200 mg tablet 600 mg PO Q6H PRN acetaminophen 300 mg-codeine 30 mg tablet 1 tab PO BID PRN buspirone 5 mg tablet 5 mg PO BID diazepam 10 mg tablet (Valium) 10 mg PO TID fluoxetine 20 mg capsule (Prozac) 20 mg PO QAM fluticasone propionate 50 mcg/actuation nasal spray,suspension 2 spray intranasal HS gabapentin 100 mg tablet 100 mg PO TID glimepiride 2 mg tablet 2 mg PO QAM insulin lispro 100 unit/mL subcutaneous pen (Humalog KwikPen (U-100) Insulin) 5 unit subcut TID lisinopril 10 mg tablet 10 mg PO QAM ropinirole 0.5 mg tablet 0.5 mg PO HS simvastatin 20 mg tablet 20 mg PO HS aspirin 81 mg tablet,delayed release (Adult Low Dose Aspirin) 81 mg PO BID semaglutide 1 mg/dose (4 mg/3 mL) subcutaneous pen injector (Ozempic) 1 mg subcut Q7D Continue as directed semaglutide 1 mg/dose (4 mg/3 mL) subcutaneous pen injector (Ozempic) 1 mg subcut Q7D ASK your surgeon for instructions ibuprofen 200 mg tablet 600 mg PO Q6H PRN ASK your prescriber and surgeon acetaminophen 300 mg-codeine 30 mg tablet 1 tab PO BID PRN aspirin 81 mg tablet,delayed release (Adult Low Dose Aspirin) 81 mg PO BID DO NOT take the morning of surgery glimepiride 2 mg tablet 2 mg PO QAM insulin lispro 100 unit/mL subcutaneous pen (Humalog KwikPen (U-100) Insulin) 5 unit subcut TID lisinopril 10 mg tablet 10 mg PO QAM Take morning of surgery With a small sip of water, OTHERWISE NOTHING TO EAT OR DRINK AFTER MIDNIGHT: buspirone 5 mg tablet 5 mg PO BID diazepam 10 mg tablet (Valium) 10 mg PO TID fluoxetine 20 mg capsule (Prozac) 20 mg PO QAM gabapentin 100 mg tablet 100 mg PO TID Take evening before surgery buspirone 5 mg tablet 5 mg PO BID diazepam 10 mg tablet (Valium) 10 mg PO TID fluticasone propionate 50 mcg/actuation nasal spray,suspension 2 spray intranasal HS gabapentin 100 mg tablet 100 mg PO TID insulin lispro 100 unit/mL subcutaneous pen (Humalog KwikPen (U-100) Insulin) 5 unit subcut TID ropinirole 0.5 mg tablet 0.5 mg PO HS simvastatin 20 mg tablet 20 mg PO HS Other Notes If you have any questions please call us at [phone] or [phone] or [phone] or [phone]
--- NOTE | 2022-08-21 09:20 | Anesthesiology Consultation ---
Date of Service August 21, 2022 Assessment & Plan (1) Encounter for pre-operative examination: - Check BSG AM DOS - COVID screening: Per assessment on 08/21: No known COVID-19 positive contacts or current COVID-19 related symptoms. Travel screen negative. At surgeon discretion if preop Covid testing being done. - Patient scheduled to see cardiology prior to surgery. Awaiting upcoming cardiology visit note (Dr. Valladares, appt 08/23). Chart Review Chart Review: Patient seen in Pre Admission Testing Teaching & Discussion Pre-Anesthesia Teaching/Discussion Notes: Instructed NPO after midnight before surgery,except medications with 15 cc of water. Medication instructions provided according to the PAT guidelines. i History Surgery Operation Date: 09/04/22 07:45 Proposed Procedures p L4-S1 Decompression and Fusion Spinal Cord Monitoring - Rey Soria DO Height/Weight Height: 5 ft 11 in Weight: 154.6 kg Allergies Allergy/AdvReac Type Severity Reaction Status Date / Time sulfamethoxazole Allergy Intermediate Hives Verified 08/10/22 09:31 [From Bactrim] trimethoprim [From Bactrim] Allergy Intermediate Hives Verified 08/10/22 09:31 Medications Home Medications Medication Instructions Recorded Confirmed Last Taken ibuprofen 200 mg tablet 600 mg PO Q6H PRN Pain 06/02/20 08/10/22 07/22/20 acetaminophen 300 mg-codeine 30 mg 1 tab PO BID PRN Pain 06/28/20 08/10/22 07/22/20 tablet buspirone 5 mg tablet 5 mg PO BID 06/28/20 08/10/22 07/29/20 19:00 diazepam 10 mg tablet (Valium) 10 mg PO TID 06/28/20 08/10/22 07/29/20 19:00 fluoxetine 20 mg capsule (Prozac) 20 mg PO QAM 06/28/20 08/10/22 07/29/20 19:00 fluticasone propionate 50 2 spray intranasal HS 06/28/20 08/10/22 07/29/20 19:00 mcg/actuation nasal spray,suspension gabapentin 100 mg tablet 100 mg PO TID 06/28/20 08/10/22 07/29/20 19:00 glimepiride 2 mg tablet 2 mg PO QAM 06/28/20 08/10/22 07/30/20 04:00 insulin lispro 100 unit/mL 5 unit subcut TID 06/28/20 08/10/22 07/29/20 18:00 subcutaneous pen (Humalog KwikPen 5 units (U-100) Insulin) lisinopril 10 mg tablet 10 mg PO QAM 06/28/20 08/10/22 07/29/20 19:00 ropinirole 0.5 mg tablet 0.5 mg PO HS 06/28/20 08/10/22 07/29/20 19:00 simvastatin 20 mg tablet 20 mg PO HS 06/28/20 08/10/22 07/29/20 19:00 Wheeled Walker #1 ea 06/29/20 06/29/20 Unknown aspirin 81 mg tablet,delayed 81 mg PO BID 42 days #0 tabs 07/31/20 08/10/22 07/29/20 06:00 release (Adult Low Dose Aspirin) semaglutide 1 mg/dose (4 mg/3 mL) 1 mg subcut Q7D 08/10/22 08/10/22 Unknown subcutaneous pen injector (Ozempic) Past Medical History Medical History Arthritis Asthma stable Depression Diabetes mellitus, type 2 IDDM Hyperlipidemia Hypertension Insomnia Mild scoliosis Morbid obesity Myocardial Infarction 10 years ago > medical management Peripheral neuropathy Pulmonary hypertension Borderline pulmonary HTN per 2018 echo Restless leg syndrome Sleep apnea no device Tricuspid valve disease Mild TR per 05/2018 echo Exercise / Class Metabolic Activity III < 4 Walking/Shop/Light housework Past Family History Family History Other No family history of adverse response to anesthesia Past Surgical History Surgical History History of cardiac cath 10 years ago > no stents ([place]) History of carpal tunnel release R/L History of cholecystectomy History of colonoscopy History of hand surgery Left wrist (+ hardware) History of hysterectomy History of knee replacement R/L Left TKA (07/30/20): SAB + PNB at [facility]. No issues noted per post-op anesthesia progress note. History of tonsillectomy and adenoidectomy Hx of bilateral cataract extraction [place] teeth removed Past Anesthesia History No Hx of Anesthesia Complications and No Family Hx of Anesthesia Complications History of PONV No Hx of PONV and No Hx of Motion Sickness Social History Smoking Status: Never smoker Do You Dip or Chew Tobacco: No Hx Alcohol Use: No Hx Substance Use: No substance use type: does not use Review of Systems Patient denies chest pain, shortness of breath, dyspnea on exertion, fever, chills, cough, wheezing, palpitations. Physical Exam Vital Signs VITALS BP 137/78 P 65 TEMP 97.8 SP02 94%RA RESP 16 PHYSICAL Full cervical extension range of motion. Full TMJ range of motion. TMD 3 finger breaths Mallampati Score 3 Dentition: upper partial Lungs: clear throughout to auscultation Cardiac: regular rate and rhythm, no murmurs noted Spine: normal Carotid arteries: negative bruit Extremities: no LE edema Lab Results Anesthesia Preop Results Results Anesthesia Widget: WBC 8.69 K/ul (4.8-10.8) 08/21/22 Hgb 12.5 g/dl (12.0-16.0) 08/21/22 Hct 39.2 % (37.0-47.0) 08/21/22 Plt 213 K/uL (130-400) 08/21/22 Na 138 mmol/L (136-145) 08/21/22 K 4.2 mmol/L (3.5-5.1) 08/21/22 Cl 105 mmol/L (98-107) 08/21/22 CO2 26 mmol/L (21-32) 08/21/22 BUN 18 mg/dl (6-23) 08/21/22 Creat 0.55 mg/dl (0.6-1.2) L 08/21/22 Glucose Level 191 mg/dl (70-99(Fasting)) H 08/21/22 PT 10.6 Seconds (9.0-12.0) 08/21/22 PTT 27.6 Seconds (21.0-31.0) 08/21/22 INR 1.0 (0.9-1.1) 08/21/22 HA1c 7.8 % (4.5-5.6) H 08/21/22 Urine Color Yellow 08/21/22 Urine Appearance Clear (Clear) 08/21/22 Urine pH 6.5 (4.5-7.5) 08/21/22 Urine Specific [place] 1.028 (1.000-1.030) 08/21/22 Urine Protein Negative (Negative) 08/21/22 Urine Glucose (UA) Negative (Negative) 08/21/22 Urine Ketones Negative (Negative) 08/21/22 Urine Blood Negative (Negative) 08/21/22 Urine Nitrite Negative (Negative) 08/21/22 Urine Bilirubin Negative (Negative) 08/21/22 Urine Urobilinogen Negative (Negative) 08/21/22 Urine Leukocyte Esterase Negative (Negative) 08/21/22 Blood Type A Positive 08/21/22 Antibody Screen NEGATIVE 08/21/22 Testing Laboratory Results Surgeon's office made aware of elevated A1C* Electrocardiogram Date: 08/21/22 NSR at 67bpm. RBBB. Chest X-Ray Date: 08/21/22 FINDINGS: The lungs are clear. The cardiac silhouette remains borderline enlarged. Mild S-shaped scoliosis is again noted. No pleural effusions. No pne umothorax. IMPRESSION: No significant change compared to the prior study. No acute process. Echocardiogram Date: 06/16/18 EF 55 to 60%.MildTR. Borderline pulmonary hypertension (PASP 40 mmHg). COVID-19 Risk Screen Screening Information COVID-19 Screen Date: 08/21/22 Exposure 21 Days Family/Household +COVID Last 21 Days: No Exposure 10 Days Any COVID Exposure Last 10 Days: No Symptoms Last 10 Days Experienced COVID Sx Last 10 Days: No + COVID 0-90 Days COVID + in Last 0-90 Days: No
[~2022-09-04 07:00] MED LIST: ACETAMINOPHEN 500 MG TAB PO SCH; GABAPENTIN 600 MG DOSE PO SCH; LR 15ML/HR IV SCH
[2022-09-04] MEDS ORDERED: DEXAMETHASONE SOD INJ 4 MG/ML VIAL ONE (08:22)
[2022-09-04] MEDS ORDERED: MIDAZOLAM HCL 1 MG/ML 2ML VIAL ONE (08:22)
[2022-09-04] MEDS ORDERED: LIDOCAINE 2% 2 ML VIAL/AMP(20MG/ML) INFIL ONE (08:22)
[2022-09-04] MEDS ORDERED: ROCURONIUM BROMIDE 10 MG/ML 5 ML VIAL IV ONE (08:22)
[2022-09-04] MEDS ORDERED: PROPOFOL IV EMULSION 10 MG/ML 20 ML VIAL IV ONE (08:22)
[2022-09-04] MEDS ORDERED: ONDANSETRON INJ 2 MG/ML 2 ML VIAL ONE (08:22)
[2022-09-04] MEDS ORDERED: fentaNYL citrate PF 100 MCG/2 ML VIAL ONE ×2 (08:22→10:45)
[2022-09-04] MEDS ORDERED: SUGAMMADEX SODIUM 200 MG/2 ML VIAL IV ONE ×2 (08:23→12:02)
--- NOTE | 2022-09-04 08:40 | History & Physical Bridge Note ---
Date of Service September 04, 2022 History & Physical Bridge Note I have examined the patient, reviewed the History & Physical and in the interval since the performance of the History & Physical I have noted the following changes of clinical significance: no changes noted
--- NOTE | 2022-09-04 08:42 | History & Physical Report ---
Date of Service September 04, 2022 Assessment & Plan (1) Neurogenic claudication due to lumbar spinal stenosis: Plan: L4-S1 decompression and fusion History of Present Illness Chief Complaint: Back and bilateral leg pain Primary Care Provider: Edgar Jain DO This is a 57-year-old female presents with chronic persistent back and leg pain after failing course of care she is here for surgical invention. Allergies Allergy/AdvReac Type Severity Reaction Status Date / Time sulfamethoxazole Allergy Intermediate Hives Verified 09/04/22 08:21 [From Bactrim] trimethoprim [From Bactrim] Allergy Intermediate Hives Verified 09/04/22 08:21 Home Medications Medication Instructions Recorded Confirmed Type ibuprofen 200 mg tablet 600 mg PO Q6H PRN Pain 06/02/20 09/04/22 History acetaminophen 300 mg-codeine 30 mg 1 tab PO BID PRN Pain 06/28/20 09/04/22 History tablet buspirone 5 mg tablet 5 mg PO BID 06/28/20 09/04/22 History diazepam 10 mg tablet (Valium) 10 mg PO TID 06/28/20 09/04/22 History fluoxetine 20 mg capsule (Prozac) 20 mg PO QAM 06/28/20 09/04/22 History fluticasone propionate 50 2 spray intranasal HS 06/28/20 09/04/22 History mcg/actuation nasal spray,suspension gabapentin 100 mg tablet 100 mg PO TID 06/28/20 09/04/22 History glimepiride 2 mg tablet 2 mg PO PM 06/28/20 09/04/22 History insulin lispro 100 unit/mL 15 unit subcut TID 06/28/20 09/04/22 History subcutaneous pen (Humalog KwikPen (U-100) Insulin) lisinopril 10 mg tablet 10 mg PO QAM 06/28/20 09/04/22 History ropinirole 0.5 mg tablet 0.5 mg PO HS 06/28/20 09/04/22 History simvastatin 20 mg tablet 20 mg PO HS 06/28/20 09/04/22 History Wheeled Walker #1 ea 06/29/20 09/04/22 Rx aspirin 81 mg tablet,delayed 81 mg PO BID 42 days #0 tabs 07/31/20 09/04/22 Rx release (Adult Low Dose Aspirin) semaglutide 1 mg/dose (4 mg/3 mL) 1 mg subcut Q7D 08/10/22 09/04/22 History subcutaneous pen injector (Ozempic) Past Med/Surg History Medical History Arthritis Asthma stable Depression Diabetes mellitus, type 2 IDDM Hyperlipidemia Hypertension Insomnia Mild scoliosis Morbid obesity Myocardial Infarction 10 years ago > medical management Peripheral neuropathy Pulmonary hypertension Borderline pulmonary HTN per 2018 echo Restless leg syndrome Sleep apnea no device Tricuspid valve disease Mild TR per 05/2018 echo Surgical History History of cardiac cath 10 years ago > no stents ([place]) History of carpal tunnel release R/L History of cholecystectomy History of colonoscopy History of hand surgery Left wrist (+ hardware) History of hysterectomy History of knee replacement R/L Left TKA (07/30/20): SAB + PNB at [facility]. No issues noted per post-op anesthesia progress note. History of tonsillectomy and adenoidectomy Hx of bilateral cataract extraction [place] teeth removed Family History Other No family history of adverse response to anesthesia Social History Smoking Status: Never smoker Second Hand Exposure: No; Do You Dip or Chew Tobacco: No; Tobacco Cessation Education Requested by Patient: No Hx Alcohol Use: No Hx Substance Use: No Preferred Language: Maltese Communication Ability: Effective Command Center Officer Required: No Beliefs That Will Affect Care: None Current Living Situation: Family Current Living Situation Comment: DAUGHTER AND GRANDSON Other Information That Helps Us Care for You: No Feels Safe at Home: Yes Safety Concerns: Feels Safe At This Time Assistive Devices: Denture - Upper Assistive Devices Comment: UPPER PARTIAL Physical Exam Physical Exam: Patient is alert and oriented Heart regular rhythm Lungs clear
[2022-09-04] MEDS ORDERED: ePHEDrine sulfate 50 MG/ML AMP IV PRN (08:46)
[2022-09-04] MEDS ORDERED: ATROPINE SULFATE 0.1 MG/ML 10ML SYR IV PRN (08:46)
[2022-09-04] MEDS ORDERED: ONDANSETRON INJ 2 MG/ML 2 ML VIAL IV PRN ×2 (08:46→13:40)
[2022-09-04] MEDS ORDERED: BUPIVACAINE/EPINEPHRINE 0.25% 1:200,000 30 ML VIAL ONE (09:02)
[2022-09-04] MEDS ORDERED: ceFAZolin 330 MG/ML 1 GM VIAL ONE (09:02)
[2022-09-04] MEDS ORDERED: SUCCINYLCHOLINE CHLORIDE 20 MG/ML 10 ML VIAL IV ONE (09:04)
[2022-09-04] MEDS ORDERED: FLOSEAL HEMOSTATIC MATRIX 10ML TOP ONE (10:24)
[2022-09-04] MEDS ORDERED: ePHEDrine sulfate 50 MG/ML SYR ONE (10:32)
--- NOTE | 2022-09-04 11:52 | Operative Report ---
Post Operative Report Pre & Post Diagnosis Operation Date: 09/04/22 08:55 Pre-Op Diagnosis: Neurogenic Claudication due to Lumbar Spinal Stenosis L4-S1 Morbid obesity Post-Op Diagnosis: Neurogenic Claudication due to Lumbar Spinal Stenosis L4-S1 Morbid obesity I identified the patient and participated in the time-out.: Yes Procedure Operation Date: 09/04/22 08:55 Actual Procedures #1 lumbar decompression bilaterally facetectomies and foraminotomies L3-L4, L4-5 and L5-S1. 2 posterior spinal fusion L4-S1. 3 placement of posterior instrumentation L4-S1. #4 interbody fusion L4-L5 L5-S1. #5 placement Spira 13 x 26 mm at L4-5 and 10 x 26 mm at L5-S1. #6 placement locally harvested morselized autograft in the posterior gutters #7 placement of I have recommended the test interbody space and posterior gutters. Surgeon Rey Soria, DO Environmental Services Coordinator Tg Lazaro Estimated Blood Loss 200 Findings See Below The patient is 5 foot 11 weight over 153 kg with a BMI in excess of 47. The patient's body was did contribute to significant technical difficulty requiring her deepest retractors and longer instruments in order to perform her procedure. This at least 50% increased operative time. Specimens None Indications This is a 57-year-old female who presents above-mentioned diagnosis after failing course of nonoperative care is here for surgical invention. Description of Procedure Patient was met with identified informed consent obtained. Patient was then taken back to the operative suite underwent ablation placed in a prone position on the [facility] top Eb frame. All bony promises well-padded eyes inspected to ensure no external pressure placed upon the bed this point the lumbar spine was prepped and draped in a sterile fashion. Sharp dissection with the assistance of Bovie cautery performed down to and exposing the lamina and transverse processes of L for L5 and sacral ala bilaterally. From a caudal cephalad fashion complete laminectomy of L5 L4 partial laminectomy of L3 was performed including bilateral medial facetectomies and foraminotomies addressing severe lateral recess and foraminal stenosis. Pedicle screws were then placed in L4-L5 and S1 levels bilaterally with assistance of fluoroscopy and appropriate sized meghana placed. Bilateral transforaminal approach and right complete discectomy of L5-S1 was performed endplates curetted to subcortically and bone and a 10 x 26 mm Spira cage with I factor tapped in position. Then proceeded to L4-L5 and again by way of a trans foraminal approach on the right complete discectomy performed endplates guided to subcortically bone and a 13 x 26 mm Spira cage with I factor tapped in position. The rods were then locked in final position bilaterally. The transverse processes of L4-L5 and the sacral ala burred to subcortically and bone. I factor amount of the test and locally harvested morselized autograft was placed in the posterior gutters. 15 round PAZ drain inserted. The incision was then closed with 1 Vicryl the fascia 2-0 Vicryl subcutaneously and 4 Monocryl for final skin closure. Steri-Strips sterile dressing placed. Patient waken taken to PACU in stable condition. Please note spinal cord monitoring was utilized at the procedure no changes noted. Lastly Tg Lazaro was present at the entire surgery and while the patient positioning complex portions of the surgery and final skin closure. I attest to the content of the Intraoperative Record and any orders documented therein. Any exceptions are noted below.
--- NOTE | 2022-09-04 12:09 | Fluoroscopy Report ---
FL lumbar spine 2-3V CLINICAL HISTORY: L4-S1 DFIchronic low back pain COMPARISON STUDY: Lumbar spine 08/04/2022 FLUOROSCOPY TIME: 34.5 seconds FLUOROSCOPY IMAGES: 2 EXPOSURE DOSE: 57.32 mGy Air Kerma FINDINGS: Posterior interbody rods and screw fusion hardware with discectomy changes noted at what is labeled the L4-S1 levels. Note that the patient demonstrates transitional lumbosacral anatomy. Image s were submitted following completion of the surgery. Hardware appears intact. No unexpected opaque f oreign bodies are identified. IMPRESSION: Fluoroscopic assistance as above. ACT 112: Negative or not required by law. Electronically signed by: Hi Vines M.D. 09/04/2022 12:08 PM
[2022-09-04] MEDS: fentaNYL citrate PF 100 MCG/2 ML VIAL IV PRN ×2 (12:23→12:28)
[2022-09-04] MEDS: HYDROmorphone INJ 1 MG/ML SYRINGE IV PRN ×6 (12:50→23:20)
--- NOTE | 2022-09-04 13:22 | Anesthesiology Progress Note ---
Date of Service September 04, 2022 Anesthesia Post Procedure Vital Signs Vital Signs: Temp Pulse Pulse Resp BP BP Pulse Ox 09/04/22 13:10 96.8 F L 82 11 L 147/95 H 95 09/04/22 13:00 83 15 146/99 H 95 09/04/22 12:50 83 12 141/103 H 92 09/04/22 12:40 88 14 150/100 H 92 09/04/22 12:30 82 12 159/102 H 95 09/04/22 12:20 76 15 132/101 H 94 09/04/22 12:10 98.1 F 80 15 159/101 H 92 09/04/22 08:29 98.1 F 65 20 137/96 95 O2 Del Method O2 Flow Rate 09/04/22 13:10 Nasal Cannula 4 09/04/22 13:00 Nasal Cannula 4 09/04/22 12:50 Oxymask 5 09/04/22 12:40 Oxymask 9 09/04/22 12:30 Oxymask 9 09/04/22 12:20 Oxymask 9 09/04/22 12:10 Oxymask 5 09/04/22 08:29 Room Air Pain Intensity Bilateral Lower Back: Pain Intensity: 8 Transfer of Care Handoff Completed per policy Notes Mental Status: alert / awake / arousable and participated in evaluation Patient Amnestic to Procedure: Yes Nausea / Vomiting: adequately controlled Pain: adequately controlled Airway Patency, RR, SpO2: stable & adequate BP & HR: stable & adequate Hydration State: stable & adequate Anesthetic Complications: no major complications apparent and Pt Satisfied with anesthetic care
[2022-09-04] MEDS ORDERED: LORazepam 0.5 MG TAB PO PRN (13:40)
[2022-09-04] MEDS ORDERED: DO NOT ADMINISTER PNEUMOCOCCAL VACCINE PRN (13:40)
[2022-09-04] MEDS ORDERED: NALOXONE HCL 0.4 MG/1 ML VIAL/CARP IV PRN (13:40)
[2022-09-04] MEDS ORDERED: PHARMACY GLYCEMIC MGMT CONSULT PRN (13:40)
[2022-09-04] MEDS ORDERED: MAGNESIUM HYDROXIDE SUSP 30 ML UDC PO PRN (13:40)
[2022-09-04] MEDS ORDERED: ALUMINUM/MAGNESIUM SUSP 30 ML UDC PO PRN (13:40)
[2022-09-04] MEDS ORDERED: HYDROmorphone INJ 0.5 MG/0.5 ML SYR IV PRN (13:40)
[2022-09-04] MEDS ORDERED: diphenhydrAMINE Capsule 25 MG CAP PO PRN (13:40)
[2022-09-04] MEDS ORDERED: ACETAMINOPHEN 500 MG TAB PO PRN (13:40)
[2022-09-04] MEDS ORDERED: hydrOXYzine HCl 25 MG TAB PO PRN (13:40)
[2022-09-04] MEDS ORDERED: bisacodyL 10 MG SUPP PR PRN (13:40)
[2022-09-04] MEDS ORDERED: DO NOT ADMINISTER FLU VACCINE PRN (13:40)
[2022-09-04] MEDS ORDERED: FAMOTIDINE 20 MG TAB PO PRN (13:40)
[2022-09-04] MEDS ORDERED: LORazepam 2 MG/1 ML VIAL IV PRN (13:40)
[2022-09-04] MEDS ORDERED: METOCLOPRAMIDE HCL INJ 5 MG/ML 2 ML VIAL IV PRN (13:40)
[2022-09-04] MEDS ORDERED: traMADol HCL 50 MG TABLET PO PRN (13:40)
[2022-09-04] MEDS ORDERED: SOD PHOSPHATE/SOD BIPHOSPHATE ENEMA 132 ML BTL PR PRN (13:40)
[2022-09-04] MEDS ORDERED: PROMETHAZINE HCL 12.5 MG in SODIUM CHLORIDE 0.9% 50 ML IV PRN (13:40)
[2022-09-04] MEDS ORDERED: ONDANSETRON 4 MG OD TAB PO PRN (13:40)
[2022-09-04] MEDS ORDERED: ACETAMINOPHEN 1,000 MG/100 ML VIAL IV PRN (13:40)
[2022-09-04] MEDS: SODIUM CHLORIDE 0.9% 1000ML 1,000 ML IV SCH ×2 (13:45→20:40)
[2022-09-04] MEDS ORDERED: diazePAM 5 MG TABLET PO SCH (14:00)
[2022-09-04] MEDS ORDERED: DEXTROSE 50% 50 ML SYRINGE IV PRN (14:15)
[2022-09-04] MEDS ORDERED: NovoLIN-N (NPH) PER UNIT CHARGE SQ ONE (14:15)
[2022-09-04] MEDS ORDERED: GLUCOSE 10 TAB/TUBE PO PRN (14:15)
[2022-09-04] MEDS ORDERED: GLUCAGON FOR INJ 1 MG VIAL IM PRN (14:15)
[2022-09-04] MEDS ORDERED: CARBOHYDRATES FOR HYPOGLYCEMIA PO PRN (14:15)
[2022-09-04] MEDS ORDERED: GLUCOSE 40% GEL 15 GM TUBE PO PRN (14:15)
--- NOTE | 2022-09-04 14:15 | Pharmacy Report ---
Pharmacy Glycemic Short Note 2 - Date of Service September 04, 2022 - Glycemic Short BSG Results (Last 24 hours): 09/04/22 09/04/22 09/04/22 08:11 12:11 13:41 POC Glucose 88 167 H 172 H OUTPATIENT ANTIDIABETIC REGIMEN: * Amaryl 2 mg nightly * Ozempic 1 mg SQ weekly * Humalog sliding scale * HbA1C = 7.8% (08/21/22) ASSESSMENT: * Ms Gregory is a 57 y/o F with a PMH of T2DM who presents for spinal surgery. Patient received 4 mg of IV dexamethasone during surgery. * BSG prior to surgery was 88 mg/dL. Post-op BSG was 172 mg/dL. * Patient had knee surgery 2 years ago and based upon that admission, it is evident that patient's BSGs are sensitive to steroids. * For basal insulin, will start with NPH 35 units (~0.35 units/kg of adjusted body weight due to body habitus). This may be changed to Lantus tomorrow. * Novolog weight-based stress of 3. Add overnight checks to ensure 24 hour coverage. PLAN FOR INPATIENT GLYCEMIC CONTROL: * Hold outpatient oral diabetes medications * Basal insulin * NPH 35 units SQ x 1 then re-evaluate * Bolus insulin * NovoLog per scale ACHS or Q6hrs while NPO * Goal Range: Low 110 mg/dL - High 140 mg/dL * Correction Factor: 15 mg/dL/unit * Nutritional / Prandial insulin per carb ratio of 1 unit per 4 grams CHO consumed
[2022-09-04] MEDS ORDERED: diazePAM 5 MG TABLET PO PRN (14:51)
[2022-09-04] MEDS: oxyCODONE HCL IR 5 MG TAB (IMMEDIATE RELEASE) PO PRN (15:04)
--- NOTE | 2022-09-04 15:31 | Hospitalist Consultation ---
Date of Consultation September 04, 2022 Assessment & Plan (1) Neurogenic claudication due to lumbar spinal stenosis: POD#0 L4-S1 decompression and fusion by Dr. Soria Activity and wound care orders as per ortho Pain control with bowel regimen PT/OT Monitor H/H for acute blood loss anemia and transfuse blood products PRN EBL 200cc (2) Diabetes mellitus, type 2: Hgb A1c 7.8 07/2022 Glycemic pharmacy consulted by primary service (3) Hypertension: BP controlled, continue lisinopril (4) Restless leg syndrome: Continue Requip (5) Depression: Stable, continue home meds DVT PROPHYLAXIS TEDs/SCDs as per spine Ortho Patient seen in collaboration with Dr. Kim. Thank you for this consultation. We will follow the patient with you during their hospital stay. You can reach a member of the [facility] Hospitalist Team 20/11 via the [place] Hospitalist role in [place] Text. Plan Recently Supervising Physician Co-Signing Physician Notes Neuro: AAOx3, PERRLA, HEENT: head normocephalic, CV: S1/S2, Resp:Air entry present bilatert GI: Abdomen non tender Musculoskeletal: back pain + Skin: (-) rashes , (-) erythema. Psych: euthymic mood History of Present Illness Reason for Consultation: Postop medical management Requesting Physician: Dr. Soria Attending Physician: Rey Soria, DO History of Present Illness 57-year-old female with PMH depression, DM type II, HTN, RLS, hyperlipidemia, and other problems listed below who is s/p L4-S1 decompression and fusion today by Dr. Soria. Postoperatively, the patient is currently rating her pain #8/10. Pain is located in the low back, no radiation of the pain into either leg. She denies numbness, tingling, weakness to lower extremities. No chest pain or shortness of breath. Denies lightheadedness and dizziness. No abdominal pain or nausea. Yap catheter is in place draining clear yellow urine. Allergies Allergy/AdvReac Type Severity Reaction Status Date / Time sulfamethoxazole Allergy Intermediate Hives Verified 09/04/22 08:21 [From Bactrim] trimethoprim [From Bactrim] Allergy Intermediate Hives Verified 09/04/22 08:21 Home Medications Medication Instructions Recorded Confirmed Type ibuprofen 200 mg tablet 600 mg PO Q6H PRN Pain 02/03/21 05/08/23 History acetaminophen 300 mg-codeine 30 mg 1 tab PO BID PRN Pain 06/28/20 09/04/22 History tablet buspirone 5 mg tablet 5 mg PO BID 06/28/20 09/04/22 History diazepam 10 mg tablet (Valium) 10 mg PO TID PRN Muscle Spasm 06/28/20 09/04/22 History fluoxetine 20 mg capsule (Prozac) 20 mg PO QAM 06/28/20 09/04/22 History fluticasone propionate 50 2 spray intranasal HS 06/28/20 09/04/22 History mcg/actuation nasal spray,suspension gabapentin 100 mg tablet 100 mg PO TID 06/28/20 09/04/22 History glimepiride 2 mg tablet 2 mg PO PM 06/28/20 09/04/22 History insulin lispro 100 unit/mL 15 unit subcut TID 06/28/20 09/04/22 History subcutaneous pen (Humalog KwikPen (U-100) Insulin) lisinopril 10 mg tablet 10 mg PO QAM 06/28/20 09/04/22 History ropinirole 0.5 mg tablet 0.5 mg PO HS 06/28/20 09/04/22 History simvastatin 20 mg tablet 20 mg PO HS 06/28/20 09/04/22 History Wheeled Walker #1 ea 06/29/20 09/04/22 Rx aspirin 81 mg tablet,delayed 81 mg PO BID 42 days #0 tabs 07/31/20 09/04/22 Rx release (Adult Low Dose Aspirin) semaglutide 1 mg/dose (4 mg/3 mL) 1 mg subcut Q7D 08/10/22 09/04/22 History subcutaneous pen injector (Ozempic) Patient History Medical History Arthritis Asthma stable Depression Diabetes mellitus, type 2 IDDM Hyperlipidemia Hypertension Insomnia Mild scoliosis Morbid obesity Myocardial Infarction 10 years ago > medical management Peripheral neuropathy Pulmonary hypertension Borderline pulmonary HTN per 2018 echo Restless leg syndrome Sleep apnea no device Tricuspid valve disease Mild TR per 05/2018 echo Surgical History History of cardiac cath 10 years ago > no stents ([place]) History of carpal tunnel release R/L History of cholecystectomy History of colonoscopy History of hand surgery Left wrist (+ hardware) History of hysterectomy History of knee replacement R/L Left TKA (07/30/20): SAB + PNB at [facility]. No issues noted per post-op anesthesia progress note. History of tonsillectomy and adenoidectomy Hx of bilateral cataract extraction [place] teeth removed Family History Other No family history of adverse response to anesthesia Social History Smoking Status: Never smoker Second Hand Exposure: No; Do You Dip or Chew Tobacco: No; Tobacco Cessation Education Requested by Patient: No Hx Alcohol Use: No Hx Substance Use: No Preferred Language: Macanese Communication Ability: Effective Account Retention Representative Required: No Beliefs That Will Affect Care: None Current Living Situation: Family Current Living Situation Comment: DAUGHTER AND GRANDSON Other Information That Helps Us Care for You: No Feels Safe at Home: Yes Safety Concerns: Feels Safe At This Time Assistive Devices: Denture - Upper Assistive Devices Comment: UPPER PARTIAL Review of Systems Review of Systems: ROS per HPI, all other systems reviewed and negative Physical Exam Constitutional: WD/WN, vitals as above + obese Eyes: PERRL, conjunctivae normal, anicteric sclerae Respiratory: normal respiratory effort, lungs clear to auscultation Cardiovascular: Rate/Rhythm: regular rate and regular rhythm Vessels: normal peripheral pulses Extremities: no edema Gastrointestinal (Abdomen): normal bowel sounds, soft, nontender, no hepatosplenomegaly Musculoskeletal: S/p back surgery, pedal pushes and pulls strong bilaterally Skin: no rashes, warm and dry Neurologic: PERRL, EOMI, accommodation nl, no face palsy, no dysarthria Psychiatric: A+Ox3, euthymic affect Results & Data Results & Data Vital Signs (Past 12 Hours) Vital Signs Temp Pulse Pulse Resp BP BP Pulse Ox 09/04/22 14:35 81 18 141/89 H 95 09/04/22 14:05 90 18 136/84 96 09/04/22 13:10 36 C L 82 11 L 147/95 H 95 09/04/22 13:00 83 15 146/99 H 95 09/04/22 12:50 83 12 141/103 H 92 09/04/22 12:40 88 14 150/100 H 92 09/04/22 12:30 82 12 159/102 H 95 09/04/22 12:20 76 15 132/101 H 94 09/04/22 12:10 36.7 C 80 15 159/101 H 92 09/04/22 08:29 36.7 C 65 20 137/96 95 O2 Del Method O2 Flow Rate 09/04/22 14:35 Nasal Cannula 4 09/04/22 14:05 Nasal Cannula 4 09/04/22 13:10 Nasal Cannula 4 09/04/22 13:00 Nasal Cannula 4 09/04/22 12:50 Oxymask 5 09/04/22 12:40 Oxymask 9 09/04/22 12:30 Oxymask 9 09/04/22 12:20 Oxymask 9 09/04/22 12:10 Oxymask 5 09/04/22 08:29 Room Air
[2022-09-04] MEDS: GABAPENTIN 100 MG CAP PO SCH ×2 (15:34→21:14)
[2022-09-04] MEDS: INSULIN ASPART PER UNIT CHARGE SC SCH ×3 (17:58→21:39)
[2022-09-04] MEDS: ceFAZolin 2000MG 2,000 MG/15 ML SYR IV SCH (18:36)
[2022-09-04] MEDS: ASPIRIN 81 MG ECTAB PO SCH (20:42)
[2022-09-04] MEDS: FLUTICASONE PROPIONATE NA SPR 16 GM BTL SCH (20:42)
[2022-09-04] MEDS: busPIRone 5 MG TAB PO SCH (20:42)
[2022-09-04] MEDS: SIMVASTATIN 20 MG TAB PO SCH (20:43)
[2022-09-04] MEDS: rOPINIRole HCL 0.25 MG TABLET PO SCH (20:43)
[2022-09-04] MEDS: DOCUSATE SODIUM/SENNA 50/8.6MG TAB PO SCH (20:45)
[2022-09-04] MEDS ORDERED: GLIMEPIRIDE 2 MG TAB PO SCH (21:00)
[2022-09-05] MEDS: INSULIN ASPART PER UNIT CHARGE SC SCH ×6 (00:42→21:04)
[2022-09-05] MEDS: ceFAZolin 2000MG 2,000 MG/15 ML SYR IV SCH (00:51)
[2022-09-05] MEDS: SODIUM CHLORIDE 0.9% 1000ML 1,000 ML IV SCH (03:14)
[2022-09-05] MEDS: POLYETHYLENE (MIRALAX) 17 GM PACK PO SCH ×3 (05:25→17:53)
[2022-09-05 06:39] LABS: Basophils # (auto) 0.02 K/uL (0-0.2); Basophils % (auto) 0.2 %; Eosinophils # (auto) 0.01 K/uL (0-0.50); Eosinophils % (auto) 0.1 %; Hematocrit (blood only) 33.4 % (37.0-47.0); Hemoglobin 10.6 g/dl (12.0-16.0); Immature Granulocytes # (auto) 0.07 K/uL (0.01-0.20); Immature Granulocytes % (auto) 0.6 %; Lymphocytes # (auto) 2.01 K/uL (1.2-3.4); Mean Corpuscular Hemoglobin 29.2 pg (25.0-34.0); Mean Corpuscular Hgb Conc 31.7 g/dL (32.0-36.0); Mean Platelet Volume 10.8 fL (9.4-12.4); Monocytes % (auto) 6.8 %; Neutrophils # (auto) 8.94 K/uL (1.40-6.50); Neutrophils % (auto) 75.3 %; Platelet Count 223 K/uL (130-400); RDW Coefficient of Variation 13.5 % (11.5-14.5); RDW Standard Deviation 46.3 fL (36.4-46.3); Red Blood Count 3.63 M/uL (4.20-5.40); White Blood Count 11.85 K/ul (4.8-10.8)
[2022-09-05 06:49] LABS: Calcium 8.1 mg/dl (8.6-10.3); Creatinine Clr Calc Pharmacy 158.8 ml/min; Est GFR (African American) 114.8 ml/min; Est GFR (Non-African American) 99.1 ml/min; Potassium 4.6 mmol/L (3.5-5.1)
[2022-09-05] MEDS: ASPIRIN 81 MG ECTAB PO SCH ×2 (08:15→20:56)
[2022-09-05] MEDS: GABAPENTIN 100 MG CAP PO SCH ×3 (08:15→20:58)
[2022-09-05] MEDS: busPIRone 5 MG TAB PO SCH ×2 (08:15→20:57)
[2022-09-05] MEDS: FLUoxetine HCL 20 MG CAP PO SCH (08:15)
[2022-09-05] MEDS: dexAMETHasone 6 MG in SYRINGE 0 ML IV SCH (08:15)
[2022-09-05] MEDS: oxyCODONE HCL IR 5 MG TAB (IMMEDIATE RELEASE) PO PRN ×2 (08:21→16:54)
--- NOTE | 2022-09-05 08:27 | Orthopedic Progress Note ---
Date of Service September 05, 2022 Assessment & Plan (1) Neurogenic claudication due to lumbar spinal stenosis: Plan: This demonstrated therapy monitor PAZ operatively discharge home next 2 days. Admission and Anticipated Discharge Date Admission Date: September 04, 2022 Subjective Back pain controlled leg pain improved Physical Exam Physical Exam: Patient scheduled to testing. Patient improved. Results & Data Vital Signs (Past 12 Hours) Vital Signs Temp Pulse Resp BP Pulse Ox O2 Del Method O2 Flow Rate 09/05/22 08:11 89 107/74 09/05/22 07:10 36.7 C 72 19 95/62 L 96 Room Air 09/05/22 04:14 94 Nasal Cannula 4.0 09/05/22 04:13 36.5 C 73 18 105/67 93 Nasal Cannula 4.0 09/04/22 23:22 36.8 C 86 16 108/69 94 Nasal Cannula 4.0
[2022-09-05] MEDS ORDERED: lisinopril 10 MG TAB PO SCH (09:00)
[2022-09-05] MEDS ORDERED: LANTUS PER UNIT CHARGE SC SCH (09:00)
--- NOTE | 2022-09-05 14:51 | Hospitalist Progress Note ---
Date of Service September 05, 2022 Assessment & Plan (1) Neurogenic claudication due to lumbar spinal stenosis: (2) Diabetes mellitus, type 2: (3) Hypertension: Plan Neurogenic claudication due to lumbar spinal stenosis POD #0 status post L4-S1 decompression fusion by Dr. Estella PONCE 200 cc Pain/wound care per orthopedics Activity and therapy as prescribed orthopedic Encourage incentive spirometry Acute blood loss anemia postsurgical Hemoglobin 10.6, preop 12 Likely dilutional component as well Monitor hemoglobin T2DM A1c 7.8 Glycemic pharmacy consulted BSG 251 186 Patient on IV dexamethasone, expect hyperglycemia Hypertension BP on low side this morning Lisinopril on hold DVT prophylaxis: ASA twice daily Patient seen in collaboration with Dr. Rouse Thank you for this consultation. We will follow the patient with you during their hospital stay. You can reach a member of the [facility] Hospitalist Team 20/11 via hospitalist role on tiger text. A total of 45 was spent coordinating, documenting, and providing care for this patient excluding time spent in the performance of separately billed services. This included personally viewing all current laboratories and imaging studies, medication reconciliation, outpatient chart review, and discussion with specialists. Admission and Anticipated Discharge Date Admission Date: September 04, 2022 Supervising Physician Co-Signing Physician Notes Attending Addendum: care coordinated with ANABELLA Cárdenas please refer to her notes for full details, I agree with her notes patient seen and examined, records reviewed by myself as well on exam, patient seen sitting up in bed, comfortable, not in distress States she was having some dizziness earlier today No chest pain, palpitations, shortness of breath diagnoses and plan of care as per ANABELLA Cárdenas's notes Jaime Rouse MD Subjective Pt was seen and examined in room 308. Follow up Lumbar surgery. C/o lower back incisional pain. Denies radicular sx. Has toro cath in place. Denies f/c/s, chest pain, sob, n/v/d, abd pain. No flatus yet. Review of Systems Review of Systems: All systems reviewed & are unremarkable except as noted in HPI & below Physical Exam Physical Exam: Gen: WD/WN, Obese, F, NAD, A&O x3, sitting up in bedside chair HEENT: Normocephalic, atraumatic, conjunctivae moist, sclerae anicteric, mucous membranes moist. Lung: Clear to Auscultation bilaterally, no wheezes/rales/rhonchi Heart: Regular rate, regular rhythm, no murmurs, rubs, or gallops Abdomen: Soft, NT, ND +BS x 4 obese abd Extremities: No edema, Lumbar dressing CDI Skin: Warm, no rash, negative turgor. Results & Data Results & Data Vital Signs (Past 12 Hours) Vital Signs Temp Pulse Resp BP Pulse Ox O2 Del Method O2 Flow Rate 09/05/22 14:16 36.6 C 78 18 118/79 95 Room Air 09/05/22 11:30 36.5 C 74 18 121/76 94 Room Air 09/05/22 09:35 Room Air 09/05/22 08:11 89 107/74 09/05/22 07:10 36.7 C 72 19 95/62 L 96 Room Air 09/05/22 04:14 94 Nasal Cannula 4.0 09/05/22 04:13 36.5 C 73 18 105/67 93 Nasal Cannula 4.0 Laboratory Results Short CBC 09/05/22 Range/Units 05:50 WBC 11.85 H (4.8-10.8) K/ul Hgb 10.6 L (12.0-16.0) g/dl Hct 33.4 L (37.0-47.0) % Plt Count 223 (130-400) K/uL BMP 09/05/22 05:50 Sodium 137 Potassium 4.6 Chloride 103 Carbon Dioxide 26 BUN 16 Creatinine 0.64 Glucose 186 H Calcium 8.1 L Medications Administered Current Inpatient Medications Acetaminophen (Acetaminophen 500 Mg Tab) 1,000 mg PO Q8H PRN PRN Reason: MILD Pain Scale 1,2,3 & Pre PT Stop: 10/04/22 13:39 Al Hydrox/Mg Hydrox/Simethicone (Aluminum/Magnesium Susp 30 Ml Udc) 30 ml PO Q6H PRN PRN Reason: Dyspepsia Stop: 10/04/22 13:39 Aspirin (Aspirin 81 Mg Ectab) 81 mg PO BID RANJITH Stop: 10/04/22 20:59 Last Admin: 09/05/22 08:15 Dose: 81 mg Bisacodyl (Bisacodyl 10 Mg Supp) 10 mg NJ DAILY PRN PRN Reason: Constipation Stop: 10/04/22 13:39 Buspirone HCl (Buspirone 5 Mg Tab) 5 mg PO BID [facility] Stop: 10/04/22 20:59 Last Admin: 09/05/22 08:15 Dose: 5 mg Dextrose (Dextrose 50% 50 Ml Syringe) 25 - 50 ml IV UD PRN; Protocol PRN Reason: Hypoglycemia Protocol Stop: 10/04/22 14:14 Diazepam (Diazepam 5 Mg Tablet) 10 mg PO TID PRN PRN Reason: muscle spasm Stop: 10/04/22 13:59 Diphenhydramine HCl (Diphenhydramine Capsule 25 Mg Cap) 25 mg PO Q6H PRN PRN Reason: Allergic Rhinitis/Insomnia Stop: 10/04/22 13:39 Famotidine (Famotidine 20 Mg Tab) 20 mg PO Q12H PRN PRN Reason: Dyspepsia Stop: 10/04/22 13:39 Fluoxetine HCl (Fluoxetine Hcl 20 Mg Cap) 20 mg PO QAM [facility] Stop: 10/05/22 08:59 Last Admin: 09/05/22 08:15 Dose: 20 mg Fluticasone Propionate (Fluticasone Propionate Na Spr 16 Gm Btl) 2 sprays NA HS [facility] Stop: 10/04/22 20:59 Last Admin: 09/04/22 20:42 Dose: 2 sprays Gabapentin (Gabapentin 100 Mg Cap) 100 mg PO TID [facility] Stop: 10/04/22 14:14 Last Admin: 09/05/22 13:01 Dose: 100 mg Glucagon (Glucagon For Inj 1 Mg Vial) 1 mg IM UD PRN; Protocol PRN Reason: Hypoglycemia Protocol Stop: 10/04/22 14:14 Glucose (Glucose 40% Gel 15 Gm Tube) 15 - 30 gm PO UD PRN; Protocol PRN Reason: Hypoglycemia Protocol Stop: 10/04/22 14:14 Glucose (Glucose 10 Tab/Tube) 4 - 8 tab PO UD PRN; Protocol PRN Reason: Hypoglycemia Protocol Stop: 10/04/22 14:14 Hydromorphone HCl (Hydromorphone Inj 0.5 Mg/0.5 Ml Syr) 0.5 mg IV Q3H PRN PRN Reason: MODERATE Pain (Scale 4,5,6) & Pre PT Stop: 09/18/22 13:39 Hydromorphone HCl (Hydromorphone Inj 1 Mg/Ml Syringe) 1 mg IV Q3H PRN PRN Reason: SEVERE Pain (Scale 7,8,9,10) Stop: 09/18/22 13:39 Last Admin: 09/04/22 23:20 Dose: 1 mg Hydroxyzine HCl (Hydroxyzine Hcl 25 Mg Tab) 25 mg PO Q8H PRN PRN Reason: Anxiety Stop: 10/04/22 13:39 Promethazine HCl 12.5 mg/ (Sodium Chloride) 50.5 mls @ 202 mls/hr IV Q6H PRN PRN Reason: Nausea &/or Vomiting Stop: 10/04/22 13:39 Dexamethasone 6 mg/ Syringe 1.5 mls @ 1 mls/min IV DAILY [facility] Stop: 09/07/22 09:02 Last Admin: 09/05/22 08:15 Dose: 1 mls/min Influenza Virus Vaccine Quadrival (Do Not Administer Flu Vaccine) 1 each N/A PRN PRN PRN Reason: Notification Stop: 10/04/22 13:39 Insulin Aspart (Insulin Aspart Per Unit Charge) 0 units SC [facility] Stop: 10/04/22 14:14 Last Admin: 09/05/22 12:59 Dose: 29 units Lisinopril (Lisinopril 10 Mg Tab) 10 mg PO QAM [facility] Stop: 10/05/22 08:59 Lorazepam (Lorazepam 0.5 Mg Tab) 0.5 mg PO Q8H PRN PRN Reason: Sedation/Anxiety Stop: 10/04/22 13:39 Lorazepam (Lorazepam 2 Mg/1 Ml Vial) 0.5 mg IV Q8H PRN PRN Reason: Sedation/Anxiety Stop: 10/04/22 13:39 Magnesium Hydroxide (Magnesium Hydroxide Susp 30 Ml Udc) 30 ml PO Q24H PRN PRN Reason: Constipation Stop: 10/04/22 13:39 Metoclopramide HCl (Metoclopramide Hcl Inj 5 Mg/Ml 2 Ml Vial) 10 mg IV Q6H PRN PRN Reason: Nausea &/or Vomiting Stop: 10/04/22 13:39 Miscellaneous (Carbohydrates For Hypoglycemia ) 15 - 30 gm PO UD PRN PRN Reason: Hypoglycemia Treatment Stop: 10/04/22 14:14 Miscellaneous Information (Pharmacy Glycemic Mgmt Consult) 1 each N/A UD PRN PRN Reason: Consult Stop: 10/04/22 13:39 Naloxone HCl (Naloxone Hcl 0.4 Mg/1 Ml Vial/Carp) 0.1 mg IV Q5M PRN PRN Reason: Oversedation/Resp depression Stop: 10/04/22 13:39 Ondansetron HCl (Ondansetron Inj 2 Mg/Ml 2 Ml Vial) 4 mg IV Q6H PRN PRN Reason: Nausea &/or Vomiting Stop: 10/04/22 13:39 Ondansetron HCl (Ondansetron 4 Mg Od Tab) 4 mg PO Q6H PRN PRN Reason: Nausea Stop: 10/04/22 13:39 Oxycodone HCl (Oxycodone Hcl Ir 5 Mg Tab (Immediate Release)) 5 - 10 mg PO Q4H PRN PRN Reason: Pain & Pre PT Stop: 09/18/22 13:39 Last Admin: 09/05/22 08:21 Dose: 10 mg Pneumococcal Polyvalent Vaccine (Do Not Administer Pneumococcal Vaccine) 1 each N/A PRN PRN PRN Reason: Notification Stop: 10/04/22 13:39 Polyethylene Glycol (Polyethylene (Miralax) 17 Gm Pack) 17 gm PO Q6 RANJITH Stop: 10/05/22 05:59 Last Admin: 09/05/22 13:01 Dose: 17 gm Ropinirole HCl (Ropinirole Hcl 0.25 Mg Tablet) 0.5 mg PO HS [facility] Stop: 10/04/22 20:59 Last Admin: 09/04/22 20:43 Dose: 0.5 mg Senna/Docusate Sodium (Docusate Sodium/Senna 50/8.6mg Tab) 2 tab PO HS RANJITH Stop: 10/04/22 20:59 Last Admin: 09/04/22 20:45 Dose: 2 tab Simvastatin (Simvastatin 20 Mg Tab) 20 mg PO HS [facility] Stop: 10/04/22 20:59 Last Admin: 09/04/22 20:43 Dose: 20 mg Sodium Biphosphate/Sodium Phosphate (Sod Phosphate/Sod Biphosphate Enema 132 Ml Btl) 132 ml NJ ONE PRN PRN Reason: Constipation Stop: 10/04/22 13:39 Tramadol HCl (Tramadol Hcl 50 Mg Tablet) 50 - 100 mg PO Q4H PRN PRN Reason: Moderate-Severe pain & Pre PT Stop: 10/04/22 13:39
[2022-09-05] MEDS: rOPINIRole HCL 0.25 MG TABLET PO SCH (20:56)
[2022-09-05] MEDS: DOCUSATE SODIUM/SENNA 50/8.6MG TAB PO SCH (20:57)
[2022-09-05] MEDS: FLUTICASONE PROPIONATE NA SPR 16 GM BTL SCH (20:58)
[2022-09-05] MEDS: SIMVASTATIN 20 MG TAB PO SCH (20:58)
[2022-09-06] MEDS: POLYETHYLENE (MIRALAX) 17 GM PACK PO SCH ×5 (01:17→23:16)
[2022-09-06] MEDS: oxyCODONE HCL IR 5 MG TAB (IMMEDIATE RELEASE) PO PRN ×5 (02:34→22:21)
[2022-09-06 06:20] LABS: Basophils # (auto) 0.04 K/uL (0-0.2); Basophils % (auto) 0.4 %; Eosinophils # (auto) 0.02 K/uL (0-0.50); Eosinophils % (auto) 0.2 %; Hematocrit (blood only) 34.1 % (37.0-47.0); Hemoglobin 10.9 g/dl (12.0-16.0); Immature Granulocytes # (auto) 0.22 K/uL (0.01-0.20); Immature Granulocytes % (auto) 1.9 %; Lymphocytes # (auto) 2.33 K/uL (1.2-3.4); Lymphocytes % (auto) 20.5 %; Mean Corpuscular Volume 90.7 fL (80.0-100.0); Mean Platelet Volume 10.6 fL (9.4-12.4); Monocytes # (auto) 0.87 K/uL (0.11-0.59); Monocytes % (auto) 7.6 %; Neutrophils # (auto) 7.91 K/uL (1.40-6.50); Neutrophils % (auto) 69.4 %; Platelet Count 187 K/uL (130-400); RDW Coefficient of Variation 13.5 % (11.5-14.5); RDW Standard Deviation 44.2 fL (36.4-46.3); Red Blood Count 3.76 M/uL (4.20-5.40); White Blood Count 11.39 K/ul (4.8-10.8)
[2022-09-06 06:33] LABS: BUN Creatinine Ratio 23.5 (10-20); Calcium 8.5 mg/dl (8.6-10.3); Creatinine Clr Calc Pharmacy 199.3 ml/min; Est GFR (African American) 123.7 ml/min; Est GFR (Non-African American) 106.7 ml/min; Potassium 4.4 mmol/L (3.5-5.1)
[2022-09-06] MEDS: GABAPENTIN 100 MG CAP PO SCH ×3 (08:44→20:49)
[2022-09-06] MEDS: INSULIN ASPART PER UNIT CHARGE SC SCH ×4 (08:44→21:35)
[2022-09-06] MEDS: dexAMETHasone 6 MG in SYRINGE 0 ML IV SCH (08:44)
[2022-09-06] MEDS: ASPIRIN 81 MG ECTAB PO SCH ×2 (08:45→20:49)
[2022-09-06] MEDS: FLUoxetine HCL 20 MG CAP PO SCH (08:45)
[2022-09-06] MEDS: busPIRone 5 MG TAB PO SCH ×2 (08:45→20:49)
--- NOTE | 2022-09-06 08:51 | Orthopedic Progress Note ---
Date of Service September 06, 2022 Assessment & Plan (1) Neurogenic claudication due to lumbar spinal stenosis: Plan: Alysha is postoperative day 2 status post L4-S1 decompression and instrumented fusion. We will continue with physical therapy today. Lab values are stable. Might need a fluid bolus if dizziness continues today. Would like to remove the Yap today. Anticipate discharge home within the next day or 2. Admission and Anticipated Discharge Date Admission Date: September 04, 2022 Subjective Alysha is postoperative day 2 status post L4-S1 decompression and fusion. She has some right leg pain with ambulation. Yesterday she reports feeling dizzy with ambulation. Blood pressure has been normal. H&H this morning are 10.9 and 34.1 respectively. Denies any chest pain or shortness of breath. She is passing flatus. Yesterday in physical therapy she was able to ambulate roughly 100 feet. Yap is still intact and draining. Review of Systems Review of Systems: All systems reviewed & are unremarkable except as noted in HPI & below Physical Exam Physical Exam: She sitting in a chair eating breakfast No acute distress Alert and oriented x3 Yap intact and draining PAZ drain intact and draining Calf soft nontender bilaterally Lumbar dressing is clean dry and intact Strength is intact bilateral lower extremities Results & Data Vital Signs (Past 12 Hours) Vital Signs Temp Pulse Resp BP Pulse Ox O2 Del Method 09/06/22 07:30 36.4 C L 77 18 125/85 94 Room Air
[2022-09-06] MEDS ORDERED: LANTUS PER UNIT CHARGE SC SCH ×2 (09:00→21:00)
--- NOTE | 2022-09-06 10:00 | Pharmacy Report ---
Pharmacy Glycemic Short Note 2 - Date of Service September 06, 2022 - Glycemic Short BSG Results (Last 24 hours): 09/05/22 09/05/22 09/05/22 12:00 17:01 21:01 Glucose POC Glucose 251 H 299 H 235 H 09/06/22 09/06/22 05:55 08:04 Glucose 166 H POC Glucose 175 H OUTPATIENT ANTIDIABETIC REGIMEN: * Amaryl 2 mg nightly * Ozempic 1 mg SQ weekly * Humalog sliding scale * HbA1C = 7.8% (08/21/22) ASSESSMENT: 09/06/22: * BSGs elevated yesterday, ranging 193-299 mg/dL - likely steroid-induced * Tightened Novolog parameters and increased basal insulin yesterday. Will increase both again today. * Continues on dexamethasone 6 mg IV daily x 2 more days 09/04/22: * Ms Gregory is a 57 y/o F with a PMH of T2DM who presents for spinal surgery. Patient received 4 mg of IV dexamethasone during surgery. * BSG prior to surgery was 88 mg/dL. Post-op BSG was 172 mg/dL. * Patient had knee surgery 2 years ago and based upon that admission, it is evident that patient's BSGs are sensitive to steroids. * For basal insulin, will start with NPH 35 units (~0.35 units/kg of adjusted body weight due to body habitus). This may be changed to Lantus tomorrow. * Novolog weight-based stress of 3. Add overnight checks to ensure 24 hour coverage. PLAN FOR INPATIENT GLYCEMIC CONTROL: * Hold outpatient oral diabetes medications * Basal insulin * Lantus 50 units SC daily with dexamethasone * Will allow for maximum of 70 units today with scale this evening to provide 0-20 units (up to ~0.4 unit/kg/actual body weight) * Bolus insulin * NovoLog per scale ACHS or Q6hrs while NPO * Goal Range: Low 110 mg/dL - High 140 mg/dL * Correction Factor: 10 mg/dL/unit * Nutritional / Prandial insulin per carb ratio of 1 unit per 3 grams CHO consumed
--- NOTE | 2022-09-06 12:41 | Hospitalist Progress Note ---
Date of Service September 06, 2022 Assessment & Plan (1) Neurogenic claudication due to lumbar spinal stenosis: (2) Diabetes mellitus, type 2: (3) Hypertension: Plan Neurogenic claudication due to lumbar spinal stenosis POD #1 status post L4-S1 decompression fusion by Dr. Estella PONCE 200 cc Pain/wound care per orthopedics Activity and therapy as prescribed orthopedic Encourage incentive spirometry Acute blood loss anemia postsurgical Hemoglobin 10.9, preop 12 Likely dilutional component as well Monitor hemoglobin T2DM A1c 7.8 Glycemic pharmacy consulted BSG 166, 184 Patient on IV dexamethasone, expect hyperglycemia Hypertension BP improving continue to hold lisinopril, resume when able DVT prophylaxis: ASA twice daily Patient seen in collaboration with Dr. Hunter Thank you for this consultation. We will follow the patient with you during their hospital stay. You can reach a member of the [facility] Hospitalist Team 20/11 via hospitalist role on tiger text. A total of 45 was spent coordinating, documenting, and providing care for this patient excluding time spent in the performance of separately billed services. This included personally viewing all current laboratories and imaging studies, medication reconciliation, outpatient chart review, and discussion with specialists. Admission and Anticipated Discharge Date Admission Date: September 04, 2022 Supervising Physician Co-Signing Physician Notes Pt seen and examined by me, care coordinated w/ B. CANDY Cárdenas, pls refer to her note above for further detail. Currently patient is sitting up in chair, in no acute distress, she is alert or iented answering questions appropriately. Denies any fevers chills chest pain shortness of breath. Still has Toro catheter placed. Reports feeling dizzy yesterday. No events overnight. Eating without difficulty. Lungs are clear to auscultation. Heart sounds regular. Abdomen soft nontender nondistended. Discussed with orthopedics at the bedside, likely plan to remove Toro catheter today, and ambulation/PT therapy. Continue to closely monitor. MD Elsa Subjective Pt was seen and examined in room 308. Follow up Lumbar surgery. Doing well this morning. Requesting cane at D/C. Still has toro in place. [place] dizzy yesterday therefore nursing left in due to high volume urine output. Denies f/c/s, chest pain, sob, n/v/d, abd pain. Review of Systems Review of Systems: All systems reviewed & are unremarkable except as noted in HPI & below Physical Exam Physical Exam: Gen: WD/WN, Obese, F, NAD, A&O x3, sitting up in bedside chair HEENT: Normocephalic, atraumatic, conjunctivae moist, sclerae anicteric, mucous membranes moist. Lung: Clear to Auscultation bilaterally, no wheezes/rales/rhonchi Heart: Regular rate, regular rhythm, no murmurs, rubs, or gallops Abdomen: Soft, NT, ND +BS x 4 obese abd Extremities: No edema, Lumbar dressing CDI Skin: Warm, no rash, negative turgor. Results & Data Results & Data Vital Signs (Past 12 Hours) Vital Signs Temp Pulse Resp BP Pulse Ox O2 Del Method 09/06/22 08:50 Room Air 09/06/22 07:30 36.4 C L 77 18 125/85 94 Room Air Laboratory Results Short CBC 09/06/22 Range/Units 05:55 WBC 11.39 H (4.8-10.8) K/ul Hgb 10.9 L (12.0-16.0) g/dl Hct 34.1 L (37.0-47.0) % Plt Count 187 (130-400) K/uL BMP 09/06/22 05:55 Sodium 136 Potassium 4.4 Chloride 104 Carbon Dioxide 26 BUN 12 Creatinine 0.51 L Glucose 166 H Calcium 8.5 L Medications Administered Current Inpatient Medications Acetaminophen (Acetaminophen 500 Mg Tab) 1,000 mg PO Q8H PRN PRN Reason: MILD Pain Scale 1,2,3 & Pre PT Stop: 10/04/22 13:39 Al Hydrox/Mg Hydrox/Simethicone (Aluminum/Magnesium Susp 30 Ml Udc) 30 ml PO Q6H PRN PRN Reason: Dyspepsia Stop: 10/04/22 13:39 Aspirin (Aspirin 81 Mg Ectab) 81 mg PO BID [facility] Stop: 10/04/22 20:59 Last Admin: 09/06/22 08:45 Dose: 81 mg Bisacodyl (Bisacodyl 10 Mg Supp) 10 mg [place] DAILY PRN PRN Reason: Constipation Stop: 10/04/22 13:39 Buspirone HCl (Buspirone 5 Mg Tab) 5 mg PO BID [facility] Stop: 10/04/22 20:59 Last Admin: 09/06/22 08:45 Dose: 5 mg Dextrose (Dextrose 50% 50 Ml Syringe) 25 - 50 ml IV UD PRN; Protocol PRN Reason: Hypoglycemia Protocol Stop: 10/04/22 14:14 Diazepam (Diazepam 5 Mg Tablet) 10 mg PO TID PRN PRN Reason: muscle spasm Stop: 10/04/22 13:59 Diphenhydramine HCl (Diphenhydramine Capsule 25 Mg Cap) 25 mg PO Q6H PRN PRN Reason: Allergic Rhinitis/Insomnia Stop: 10/04/22 13:39 Famotidine (Famotidine 20 Mg Tab) 20 mg PO Q12H PRN PRN Reason: Dyspepsia Stop: 10/04/22 13:39 Fluoxetine HCl (Fluoxetine Hcl 20 Mg Cap) 20 mg PO QAM [facility] Stop: 10/05/22 08:59 Last Admin: 09/06/22 08:45 Dose: 20 mg Fluticasone Propionate (Fluticasone Propionate Na Spr 16 Gm Btl) 2 sprays NA HS [facility] Stop: 10/04/22 20:59 Last Admin: 09/05/22 20:58 Dose: 2 sprays Gabapentin (Gabapentin 100 Mg Cap) 100 mg PO TID [facility] Stop: 10/04/22 14:14 Last Admin: 09/06/22 12:36 Dose: 100 mg Glucagon (Glucagon For Inj 1 Mg Vial) 1 mg IM UD PRN; Protocol PRN Reason: Hypoglycemia Protocol Stop: 10/04/22 14:14 Glucose (Glucose 40% Gel 15 Gm Tube) 15 - 30 gm PO UD PRN; Protocol PRN Reason: Hypoglycemia Protocol Stop: 10/04/22 14:14 Glucose (Glucose 10 Tab/Tube) 4 - 8 tab PO UD PRN; Protocol PRN Reason: Hypoglycemia Protocol Stop: 10/04/22 14:14 Hydromorphone HCl (Hydromorphone Inj 0.5 Mg/0.5 Ml Syr) 0.5 mg IV Q3H PRN PRN Reason: MODERATE Pain (Scale 4,5,6) & Pre PT Stop: 09/18/22 13:39 Hydromorphone HCl (Hydromorphone Inj 1 Mg/Ml Syringe) 1 mg IV Q3H PRN PRN Reason: SEVERE Pain (Scale 7,8,9,10) Stop: 09/18/22 13:39 Last Admin: 09/04/22 23:20 Dose: 1 mg Hydroxyzine HCl (Hydroxyzine Hcl 25 Mg Tab) 25 mg PO Q8H PRN PRN Reason: Anxiety Stop: 10/04/22 13:39 Promethazine HCl 12.5 mg/ (Sodium Chloride) 50.5 mls @ 202 mls/hr IV Q6H PRN PRN Reason: Nausea &/or Vomiting Stop: 10/04/22 13:39 Dexamethasone 6 mg/ Syringe 1.5 mls @ 1 mls/min IV DAILY [facility] Stop: 09/07/22 09:02 Last Admin: 09/06/22 08:44 Dose: 1 mls/min Influenza Virus Vaccine Quadrival (Do Not Administer Flu Vaccine) 1 each N/A PRN PRN PRN Reason: Notification Stop: 10/04/22 13:39 Insulin Aspart (Insulin Aspart Per Unit Charge) 0 units SC ACHS [facility] Stop: 10/04/22 14:14 Last Admin: 09/06/22 12:35 Dose: 25 units Lisinopril (Lisinopril 10 Mg Tab) 10 mg PO QAM [facility] Stop: 10/05/22 08:59 Lorazepam (Lorazepam 0.5 Mg Tab) 0.5 mg PO Q8H PRN PRN Reason: Sedation/Anxiety Stop: 10/04/22 13:39 Lorazepam (Lorazepam 2 Mg/1 Ml Vial) 0.5 mg IV Q8H PRN PRN Reason: Sedation/Anxiety Stop: 10/04/22 13:39 Magnesium Hydroxide (Magnesium Hydroxide Susp 30 Ml Udc) 30 ml PO Q24H PRN PRN Reason: Constipation Stop: 10/04/22 13:39 Metoclopramide HCl (Metoclopramide Hcl Inj 5 Mg/Ml 2 Ml Vial) 10 mg IV Q6H PRN PRN Reason: Nausea &/or Vomiting Stop: 10/04/22 13:39 Miscellaneous (Carbohydrates For Hypoglycemia ) 15 - 30 gm PO UD PRN PRN Reason: Hypoglycemia Treatment Stop: 10/04/22 14:14 Miscellaneous Information (Pharmacy Glycemic Mgmt Consult) 1 each N/A UD PRN PRN Reason: Consult Stop: 10/04/22 13:39 Naloxone HCl (Naloxone Hcl 0.4 Mg/1 Ml Vial/Carp) 0.1 mg IV Q5M PRN PRN Reason: Oversedation/Resp depression Stop: 10/04/22 13:39 Ondansetron HCl (Ondansetron Inj 2 Mg/Ml 2 Ml Vial) 4 mg IV Q6H PRN PRN Reason: Nausea &/or Vomiting Stop: 10/04/22 13:39 Ondansetron HCl (Ondansetron 4 Mg Od Tab) 4 mg PO Q6H PRN PRN Reason: Nausea Stop: 10/04/22 13:39 Oxycodone HCl (Oxycodone Hcl Ir 5 Mg Tab (Immediate Release)) 5 - 10 mg PO Q4H PRN PRN Reason: Pain & Pre PT Stop: 09/18/22 13:39 Last Admin: 09/06/22 12:35 Dose: 10 mg Pneumococcal Polyvalent Vaccine (Do Not Administer Pneumococcal Vaccine) 1 each N/A PRN PRN PRN Reason: Notification Stop: 10/04/22 13:39 Polyethylene Glycol (Polyethylene (Miralax) 17 Gm Pack) 17 gm PO Q6 [facility] Stop: 10/05/22 05:59 Last Admin: 09/06/22 12:36 Dose: 17 gm Ropinirole HCl (Ropinirole Hcl 0.25 Mg Tablet) 0.5 mg PO HS [facility] Stop: 10/04/22 20:59 Last Admin: 09/05/22 20:56 Dose: 0.5 mg Senna/Docusate Sodium (Docusate Sodium/Senna 50/8.6mg Tab) 2 tab PO HS [facility] Stop: 10/04/22 20:59 Last Admin: 09/05/22 20:57 Dose: 2 tab Simvastatin (Simvastatin 20 Mg Tab) 20 mg PO HS [facility] Stop: 10/04/22 20:59 Last Admin: 09/05/22 20:58 Dose: 20 mg Sodium Biphosphate/Sodium Phosphate (Sod Phosphate/Sod Biphosphate Enema 132 Ml Btl) 132 ml MO ONE PRN PRN Reason: Constipation Stop: 10/04/22 13:39 Tramadol HCl (Tramadol Hcl 50 Mg Tablet) 50 - 100 mg PO Q4H PRN PRN Reason: Moderate-Severe pain & Pre PT Stop: 10/04/22 13:39
[2022-09-06] MEDS: DOCUSATE SODIUM/SENNA 50/8.6MG TAB PO SCH (20:48)
[2022-09-06] MEDS: rOPINIRole HCL 0.25 MG TABLET PO SCH (20:48)
[2022-09-06] MEDS: SIMVASTATIN 20 MG TAB PO SCH (20:49)
[2022-09-06] MEDS: FLUTICASONE PROPIONATE NA SPR 16 GM BTL SCH (20:49)
[2022-09-07] MEDS: POLYETHYLENE (MIRALAX) 17 GM PACK PO SCH (05:41)
[2022-09-07] MEDS: oxyCODONE HCL IR 5 MG TAB (IMMEDIATE RELEASE) PO PRN ×2 (06:16→11:13)
[2022-09-07 06:52] LABS: Hematocrit (blood only) 34.1 % (37.0-47.0)
[2022-09-07 07:39] LABS: Calcium 8.6 mg/dl (8.6-10.3); Potassium 4.2 mmol/L (3.5-5.1)
[2022-09-07 07:44] LABS: BUN Creatinine Ratio 32.2 (10-20); Creatinine Clr Calc Pharmacy 172.2 ml/min; Est GFR (African American) 117.9 ml/min; Est GFR (Non-African American) 101.7 ml/min
[2022-09-07] MEDS: INSULIN ASPART PER UNIT CHARGE SC SCH (08:25)
[2022-09-07] MEDS: dexAMETHasone 6 MG in SYRINGE 0 ML IV SCH (08:25)
--- NOTE | 2022-09-07 08:25 | Hospitalist Progress Note ---
Date of Service September 07, 2022 Assessment & Plan (1) Neurogenic claudication due to lumbar spinal stenosis: (2) Diabetes mellitus, type 2: (3) Hypertension: Plan Neurogenic claudication due to lumbar spinal stenosis Status post L4-S1 decompression fusion by Dr. Soria (09/04/22) Pain/wound care per orthopedics Activity and therapy as prescribed orthopedic Encourage incentive spirometry Acute blood loss anemia postsurgical Hemoglobin 11, preop 12 Likely dilutional component as well Monitor hemoglobin, stable from yesterday T2DM A1c 7.8 Glycemic pharmacy consulted BSG 166, 184 Patient on IV dexamethasone, expect hyperglycemia Hypertension BP improved resume lisinopril DVT prophylaxis: ASA twice daily Thank you for this consultation. We will follow the patient with you during their hospital stay. You can reach a member of the [facility] Hospitalist Team 20/11 via hospitalist role on tiger text. Admission and Anticipated Discharge Date Admission Date: September 04, 2022 Subjective Pt seen in follow up med consult, pt s/p Lumbar surgery. Doing well this morning. seen ambulating in her room w/ a walker Yap remobed, pt is voiding w/o difficulty. Passing flatus. Denies f/c/s, chest pain, sob, n/v/d, abd pain. Review of Systems Review of Systems: All systems reviewed & are unremarkable except as noted in Subjective Physical Exam Physical Exam: Gen: Morbidly Obese, F, NAD, A&O x3 HEENT: Normocephalic, atraumatic, conjunctivae moist, sclerae anicteric, mucous membranes moist. Lung: Clear to Auscultation bilaterally, no wheezes/rales/rhonchi Heart: Regular rate, regular rhythm, no murmurs Abdomen: Soft, NT, ND +BS x 4 obese abd Extremities: No edema, Lumbar dressing CDI Skin: Warm, no rash Results & Data Results & Data Vital Signs (Past 12 Hours) Vital Signs Temp Pulse Pulse Resp BP Pulse Ox O2 Del Method 09/07/22 07:22 36.5 C 66 18 139/85 94 Room Air 09/06/22 20:45 Room Air 09/06/22 21:45 36.5 C 71 18 144/88 H 91 Room Air Laboratory Results 09/07/22 09/07/22 09/07/22 Range/Units 08:04 06:07 06:07 Hgb 11.0 L (12.0-16.0) g/dl Hct 34.1 L (37.0-47.0) % Sodium 137 (136-145) mmol/L Potassium 4.2 (3.5-5.1) mmol/L Chloride 102 (98-107) mmol/L Carbon Dioxide 28 (21-32) mmol/L Anion Gap 7 (3-11) BUN 19 (6-23) mg/dl Creatinine 0.59 L (0.6-1.2) mg/dl Est Cr Clr Drug Dosing 172.2 ml/min Est GFR ( Amer) 117.9 ml/min Est GFR (Non-Af Amer) 101.7 ml/min BUN/Creatinine Ratio 32.2 H (10-20) Glucose 179 H (70-99(Fasting)) mg/dl POC Glucose 171 H (70-99) mg/dl Calcium 8.6 (8.6-10.3) mg/dl 09/06/22 09/06/22 09/06/22 Range/Units 20:31 17:08 11:53 Hgb (12.0-16.0) g/dl Hct (37.0-47.0) % Sodium (136-145) mmol/L Potassium (3.5-5.1) mmol/L Chloride (98-107) mmol/L Carbon Dioxide (21-32) mmol/L Anion Gap (3-11) BUN (6-23) mg/dl Creatinine (0.6-1.2) mg/dl Est Cr Clr Drug Dosing ml/min Est GFR ( Amer) ml/min Est GFR (Non-Af Amer) ml/min BUN/Creatinine Ratio (10-20) Glucose (70-99(Fasting)) mg/dl POC Glucose 220 H 244 H 184 H (70-99) mg/dl Calcium (8.6-10.3) mg/dl Medications Administered Current Inpatient Medications Acetaminophen (Acetaminophen 500 Mg Tab) 1,000 mg PO Q8H PRN PRN Reason: MILD Pain Scale 1,2,3 & Pre PT Stop: 10/04/22 13:39 Al Hydrox/Mg Hydrox/Simethicone (Aluminum/Magnesium Susp 30 Ml Udc) 30 ml PO Q6H PRN PRN Reason: Dyspepsia Stop: 10/04/22 13:39 Aspirin (Aspirin 81 Mg Ectab) 81 mg PO BID [facility] Stop: 10/04/22 20:59 Last Admin: 09/06/22 20:49 Dose: 81 mg Bisacodyl (Bisacodyl 10 Mg Supp) 10 mg [place] DAILY PRN PRN Reason: Constipation Stop: 10/04/22 13:39 Buspirone HCl (Buspirone 5 Mg Tab) 5 mg PO BID [facility] Stop: 10/04/22 20:59 Last Admin: 09/06/22 20:49 Dose: 5 mg Dextrose (Dextrose 50% 50 Ml Syringe) 25 - 50 ml IV UD PRN; Protocol PRN Reason: Hypoglycemia Protocol Stop: 10/04/22 14:14 Diazepam (Diazepam 5 Mg Tablet) 10 mg PO TID PRN PRN Reason: muscle spasm Stop: 10/04/22 13:59 Diphenhydramine HCl (Diphenhydramine Capsule 25 Mg Cap) 25 mg PO Q6H PRN PRN Reason: Allergic Rhinitis/Insomnia Stop: 10/04/22 13:39 Famotidine (Famotidine 20 Mg Tab) 20 mg PO Q12H PRN PRN Reason: Dyspepsia Stop: 10/04/22 13:39 Fluoxetine HCl (Fluoxetine Hcl 20 Mg Cap) 20 mg PO QAM [facility] Stop: 10/05/22 08:59 Last Admin: 09/06/22 08:45 Dose: 20 mg Fluticasone Propionate (Fluticasone Propionate Na Spr 16 Gm Btl) 2 sprays NA HS [facility] Stop: 10/04/22 20:59 Last Admin: 09/06/22 20:49 Dose: 2 sprays Gabapentin (Gabapentin 100 Mg Cap) 100 mg PO TID [facility] Stop: 10/04/22 14:14 Last Admin: 09/06/22 20:49 Dose: 100 mg Glucagon (Glucagon For Inj 1 Mg Vial) 1 mg IM UD PRN; Protocol PRN Reason: Hypoglycemia Protocol Stop: 10/04/22 14:14 Glucose (Glucose 40% Gel 15 Gm Tube) 15 - 30 gm PO UD PRN; Protocol PRN Reason: Hypoglycemia Protocol Stop: 10/04/22 14:14 Glucose (Glucose 10 Tab/Tube) 4 - 8 tab PO UD PRN; Protocol PRN Reason: Hypoglycemia Protocol Stop: 10/04/22 14:14 Hydromorphone HCl (Hydromorphone Inj 0.5 Mg/0.5 Ml Syr) 0.5 mg IV Q3H PRN PRN Reason: MODERATE Pain (Scale 4,5,6) & Pre PT Stop: 09/18/22 13:39 Hydromorphone HCl (Hydromorphone Inj 1 Mg/Ml Syringe) 1 mg IV Q3H PRN PRN Reason: SEVERE Pain (Scale 7,8,9,10) Stop: 09/18/22 13:39 Last Admin: 09/04/22 23:20 Dose: 1 mg Hydroxyzine HCl (Hydroxyzine Hcl 25 Mg Tab) 25 mg PO Q8H PRN PRN Reason: Anxiety Stop: 10/04/22 13:39 Promethazine HCl 12.5 mg/ (Sodium Chloride) 50.5 mls @ 202 mls/hr IV Q6H PRN PRN Reason: Nausea &/or Vomiting Stop: 10/04/22 13:39 Dexamethasone 6 mg/ Syringe 1.5 mls @ 1 mls/min IV DAILY [facility] Stop: 09/07/22 09:02 Last Admin: 09/06/22 08:44 Dose: 1 mls/min Influenza Virus Vaccine Quadrival (Do Not Administer Flu Vaccine) 1 each N/A PRN PRN PRN Reason: Notification Stop: 10/04/22 13:39 Insulin Aspart (Insulin Aspart Per Unit Charge) 0 units SC ACHS [facility] Stop: 10/04/22 14:14 Last Admin: 09/06/22 21:35 Dose: 18 units Lisinopril (Lisinopril 10 Mg Tab) 10 mg PO QAM [facility] Stop: 10/05/22 08:59 Lorazepam (Lorazepam 0.5 Mg Tab) 0.5 mg PO Q8H PRN PRN Reason: Sedation/Anxiety Stop: 10/04/22 13:39 Lorazepam (Lorazepam 2 Mg/1 Ml Vial) 0.5 mg IV Q8H PRN PRN Reason: Sedation/Anxiety Stop: 10/04/22 13:39 Magnesium Hydroxide (Magnesium Hydroxide Susp 30 Ml Udc) 30 ml PO Q24H PRN PRN Reason: Constipation Stop: 10/04/22 13:39 Metoclopramide HCl (Metoclopramide Hcl Inj 5 Mg/Ml 2 Ml Vial) 10 mg IV Q6H PRN PRN Reason: Nausea &/or Vomiting Stop: 10/04/22 13:39 Miscellaneous (Carbohydrates For Hypoglycemia ) 15 - 30 gm PO UD PRN PRN Reason: Hypoglycemia Treatment Stop: 10/04/22 14:14 Miscellaneous Information (Pharmacy Glycemic Mgmt Consult) 1 each N/A UD PRN PRN Reason: Consult Stop: 10/04/22 13:39 Naloxone HCl (Naloxone Hcl 0.4 Mg/1 Ml Vial/Carp) 0.1 mg IV Q5M PRN PRN Reason: Oversedation/Resp depression Stop: 10/04/22 13:39 Ondansetron HCl (Ondansetron Inj 2 Mg/Ml 2 Ml Vial) 4 mg IV Q6H PRN PRN Reason: Nausea &/or Vomiting Stop: 10/04/22 13:39 Ondansetron HCl (Ondansetron 4 Mg Od Tab) 4 mg PO Q6H PRN PRN Reason: Nausea Stop: 10/04/22 13:39 Oxycodone HCl (Oxycodone Hcl Ir 5 Mg Tab (Immediate Release)) 5 - 10 mg PO Q4H PRN PRN Reason: Pain & Pre PT Stop: 09/18/22 13:39 Last Admin: 09/07/22 06:16 Dose: 10 mg Pneumococcal Polyvalent Vaccine (Do Not Administer Pneumococcal Vaccine) 1 each N/A PRN PRN PRN Reason: Notification Stop: 10/04/22 13:39 Polyethylene Glycol (Polyethylene (Miralax) 17 Gm Pack) 17 gm PO Q6 [facility] Stop: 10/05/22 05:59 Last Admin: 09/07/22 05:41 Dose: 17 gm Ropinirole HCl (Ropinirole Hcl 0.25 Mg Tablet) 0.5 mg PO [facility] Stop: 10/04/22 20:59 Last Admin: 09/06/22 20:48 Dose: 0.5 mg Senna/Docusate Sodium (Docusate Sodium/Senna 50/8.6mg Tab) 2 tab PO HS [facility] Stop: 10/04/22 20:59 Last Admin: 09/06/22 20:48 Dose: 2 tab Simvastatin (Simvastatin 20 Mg Tab) 20 mg PO [facility] Stop: 10/04/22 20:59 Last Admin: 09/06/22 20:49 Dose: 20 mg Sodium Biphosphate/Sodium Phosphate (Sod Phosphate/Sod Biphosphate Enema 132 Ml Btl) 132 ml [place] ONE PRN PRN Reason: Constipation Stop: 10/04/22 13:39 Tramadol HCl (Tramadol Hcl 50 Mg Tablet) 50 - 100 mg PO Q4H PRN PRN Reason: Moderate-Severe pain & Pre PT Stop: 10/04/22 13:39
[2022-09-07] MEDS: ASPIRIN 81 MG ECTAB PO SCH (08:26)
[2022-09-07] MEDS: busPIRone 5 MG TAB PO SCH (08:26)
[2022-09-07] MEDS: GABAPENTIN 100 MG CAP PO SCH (08:26)
[2022-09-07] MEDS: FLUoxetine HCL 20 MG CAP PO SCH (08:26)
[2022-09-07] MEDS ORDERED: LANTUS PER UNIT CHARGE SC SCH (09:00)
--- NOTE | 2022-09-07 09:29 | Pharmacy Report ---
Pharmacy Glycemic Short Note 2 - Date of Service September 07, 2022 - Glycemic Short BSG Results (Last 24 hours): 09/06/22 09/06/22 09/06/22 11:53 17:08 20:31 Glucose POC Glucose 184 H 244 H 220 H 09/07/22 09/07/22 06:07 08:04 Glucose 179 H POC Glucose 171 H OUTPATIENT ANTIDIABETIC REGIMEN: * Amaryl 2 mg PO nightly * Ozempic 1 mg SC weekly * Humalog sliding scale * HbA1C = 7.8% (08/21/22) ASSESSMENT: 09/07: * Diamond received 154 units of insulin yesterday, 60 basal + 94 bolus. BSGs remain uncontrolled: [phone] mg/dL. * Fasting BSG was 171 mg/dL this AM, slight improvement but still above goal. Today is last day of IV dexamethasone. * Will increase basal by 20% today. * Postprandial hyperglycemia continues. * Will tighten CR today. 09/06: * BSGs elevated yesterday, ranging 193-299 mg/dL - likely steroid-induced * Tightened Novolog parameters and increased basal insulin yesterday. Will increase both again today. * Continues on dexamethasone 6 mg IV daily x 2 more days 09/04: * Ms Gregory is a 57 y/o F with a PMH of T2DM who presents for spinal surgery. Patient received 4 mg of IV dexamethasone during surgery. * BSG prior to surgery was 88 mg/dL. Post-op BSG was 172 mg/dL. * Patient had knee surgery 2 years ago and based upon that admission, it is evident that patient's BSGs are sensitive to steroids. * For basal insulin, will start with NPH 35 units (~0.35 units/kg of adjusted body weight due to body habitus). This may be changed to Lantus tomorrow. * Novolog weight-based stress of 3. Add overnight checks to ensure 24 hour coverage. PLAN FOR INPATIENT GLYCEMIC CONTROL: * Hold outpatient oral diabetes medications * Basal insulin * Lantus 72 units SC x 1 * Bolus insulin * NovoLog per scale ACHS or Q6hrs while NPO * Goal Range: Low 110 mg/dL - High 140 mg/dL * Correction Factor: 10 mg/dL/unit * Nutritional / Prandial insulin per carb ratio of 1 unit per 2 grams CHO consumed
--- NOTE | 2022-09-07 13:21 | Discharge Summary ---
Date of Service September 07, 2022 Principal Diagnosis Lumbar spinal stenosis with neurogenic claudication Discharge Data Allergies Allergy/AdvReac Type Severity Reaction Status Date / Time sulfamethoxazole Allergy Intermediate Hives Verified 09/04/22 08:21 [From Bactrim] trimethoprim [From Bactrim] Allergy Intermediate Hives Verified 09/04/22 08:21 Consultations 09/04/22 13:40 Consult Hospitalist Routine Procedures Performed Operation Date: 09/04/22 08:55 Actual Procedures p L4-S1 Decompression and Fusion, with Interbody Fusion L4-S1, Application of IFactor and Vitoss Bone Graft, Spinal Cord Monitoring(Not Applicable) - Rey Soria DO Ordered Studies 09/04/22 08:55 [place] lumbar spine 2-3V Routine Hospital Course (1) Neurogenic claudication due to lumbar spinal stenosis: Patient underwent lumbar decompression fusion tolerated this well stable orthopedic for possibly. Postop day 1 she was up and ambulating progress postop day #2 postop 3 pain was well controlled ambulating well. PAZ drain decreased probably. Excellent strength testing. Subsidy discharged home. Discharge orders and instructions found in chart for further review. Total Time Total Time Spent Total Time Spent (In Minutes): 20 minutes Discharge Plan Discharge Items Patient Disposition: Home - Self-Care Reason For Visit: Spondylosis without Myelopathy or Radiculopathy Annette Discharge Diagnosis: Lumbar spinal stenosis with neurogenic claudication Activity: As commented below Non-emergency contact: Primary Care Provider Call non-emergency contact if: you have any medication questions Follow-up/Referrals: PCP,NO [Physician] - Diet: Regular Addtl Attending Provider Instructions: ACTIVITY RECOMMENDATIONS: SELF CARE INSTRUCTIONS AFTER THORACIC/LUMBAR FUSIONS 1. You may walk to your tolerance. It is good exercise for your legs and back. Expect some back and intermittent leg aches and pains. 2. You may perform "counter-top" level activities (make a sandwich, shelia with a project, etc.). 3. No bending or lifting of more than 10 pounds or back twisting of any nature (roll like a log when turning in bed). 4. You may ride in a car for 20-30 minutes at a time. No driving until after your first visit with your doctor. 5. Frequent changes of position and restricting sitting to 30 minutes at a time will help limit the amount of back spasms and stiffness you may experience. 6. You may discontinue the use of ambulatory aids (cane, crutches, etc.) once your strength and confidence allow. 7. You may milling machine operator the shower and let water strike your incision when you arrive home at least once daily. Do not take a tub bath, sit in a hot tub or go into a swimming pool until after your first recheck in the office. SPECIAL CARE INSTRUCTIONS: VERY IMPORTANT TO READ AND REVIEW A. Your surgical incision has been closed with a cosmetic suture under the skin that will dissolve in about 6 weeks. In 14 days, you can use a pair of clean scissors and cut the suture that is left outside of the skin at the ends of your incision. 1. The small skin tapes can be removed 7 days after surgery if they have not fallen off by that point. 2. You may keep the wound open to air as much as possible to promote healing after post-op day number 5 unless told otherwise by your doctor. 3. If you think the wound looks like it is becoming infected (redness or worsening drainage) and/or you are experiencing fever, chill or worsening back pain and muscle spasms, contact the office so that we may evaluate you as soon as possible. B. Complications are uncommon, but please contact us if you have any signs or symptoms of: 1. wound infection (fever higher than 102.5 degrees F, redness, separation of wound, drainage, or increasing pain from the incision) 2. blood clots in legs (pain, swelling, redness and warmth in legs) 3. urinary tract infection (fever higher than 102.5 degrees F, burning upon urination or increased frequency of urination) 4. nerve problems (inability to walk on your toes or heels, numbness, loss of bowel or bladder control) 5. any other symptoms that concern you C. Please call the office at if you have any concerns or questions about your operation or recovery. D. No smoking! Smoking drastically decreases the chance of a solid fusion. E. Do not take any anti-inflammatory medications (Indocin, Advil, Motrin, Aspirin, Naprosyn, etc.) as these may inhibit the chance of a solid fusion. Tylenol is okay to take for pain. MANAGING PAIN AFTER SPINAL SURGERY 1. Narcotic medication is intended for short-term use and will be provided for surgical pain. Surgical pain usually lasts for a period of 4-6 weeks. Narcotic medication includes Percocet, Vicodin, Darvocet, Tylenol #3 or Lortab. 2. Longer-term pain is more appropriately treated with non-narcotic medication such as Tylenol ES. 3. Muscle spasm is not appropriately treated with narcotics. Muscle relaxers such as Soma, Flexeril or Skelaxin can be used along with Tylenol ES. 4. Remember that we all live with some "aches and pains". This is not unusual or uncommon after an injury or as we get older. a. Back pain is expected and may include muscle spasms for 4 to 6 weeks after surgery. The pain should gradually improve. If the pain worsens for no apparent reason, please contact the office. b. Intermittent leg pain may also be experienced and should not be concerned about unless it worsens for no apparent reason. If so, please contact the office. 5. We will provide appropriate medication within the normal guidelines of their prescribed use. We will also be very cautious and aware of potential abuse and extended duration of patients' medication needs. a. Pain medications are for your comfort and to assist with sleep and rest so that the tissue can heal. They are not provided in order to return to normal activity and should not be used through the day. To do so or worsening pain at night can result from ongoing tissue damage and development of tolerance to the prescribed medicine. 6. Please allow 2-3 days to process refills. Prescriptions will not be mailed but must be picked up at the office. FOLLOW UP VISIT: Keep your scheduled follow-up appointment. Any questions, please call the office at . Pending Studies at Discharge: No Stand-Alone Forms: My [facility] PublicRelay, Smoking Cessation Medications and DC Order Prescriptions: New tramadol 50 mg tablet 50 mg PO Q6H PRN (Reason: pain, moderate) Qty: 30 0RF oxycodone 5 mg tablet 5 mg PO Q6H PRN (Reason: pain) Qty: 30 0RF oxycodone 5 mg tablet 5 mg PO Q6H PRN (Reason: pain) Qty: 30 0RF Continued (DME) Wheeled Walker Misc See Rx Instructions .MEDSUPPLY Qty: 1 0RF Rx Instructions: As directed ibuprofen 200 mg tablet 600 mg PO Q6H PRN (Reason: Pain) buspirone 5 mg Tablet 5 mg PO BID acetaminophen-codeine 300-30 mg Tablet 1 tab PO BID PRN (Reason: Pain) glimepiride 2 mg Tablet 2 mg PO PM simvastatin 20 mg Tablet 20 mg PO HS ropinirole 0.5 mg Tablet 0.5 mg PO HS lisinopril 10 mg Tablet 10 mg PO QAM diazepam [Valium] 10 mg Tablet 10 mg PO TID PRN (Reason: Muscle Spasm) fluoxetine [Prozac] 20 mg Capsule 20 mg PO QAM fluticasone propionate 50 mcg/actuation [place],Suspension 2 spray INTRANASAL HS insulin lispro [Humalog KwikPen Insulin] 100 unit/mL Insulin Pen See Rx Instructions .ROUTE .COMPLEX Patient Comments: pt uses sliding scale 61-150-0U,151-200 3U,201-250 %U,251-300 8U,301-350 10U,351-400 12U,>400 15U Rx Instructions: sliding scale 5unit-29units gabapentin 100 mg Tablet 100 mg PO TID aspirin [Adult Low Dose Aspirin] 81 mg tablet,delayed release (DR/EC) 81 mg PO BID 42 Days Qty: 0 0RF Ozempic 1 mg/dose (4 mg/3 mL) pen injector 1 mg SUBCUT Q7D Rx Instructions: MONDAYS Discharge Orders: Discharge Order (Routine); Ordered 09/07/22 Ordered By: Rey Bliss/Other Patient Handouts: Back Safety: Bending, Back Safety: Lifting, Back Safety: Turning Admission Data Admit Date/Time: 09/04/22 11:56 Attending Provider: Rey Soria Admit Provider: Rey Soria Primary Care Provider: Edgar Jain Other Providers: Nelida Mack ; Ben Hunter Other Interventions: Discharge Summary Assessment (RN) Last Done: 09/07/22 11:33
== END 2022-09-07 14:07 | disposition home or self-care (01) | DRG 454 ==
LOC: ASU 07:00 → 3E 11:56

== ENCOUNTER 2022-09-11 12:14 | Observation (INO) ==
[2022-09-11] MEDS ORDERED: HYDROmorphone INJ 0.5 MG/0.5 ML SYR IV STA (13:08)
--- NOTE | 2022-09-11 13:09 | Emergency Department Note ---
History of Present Illness General Chief complaint: Leg Weakness, Bilateral Stated complaint: WEAKNESS; PAIN IN LEGS Time Seen by Provider: 09/11/22 12:44 History of Present Illness Maximum Pain Intensity: 10 This is a 57-year-old female that presents to the emergency department via priva te vehicle referred by news content specialist with complaints of "weakness, pain in legs". Patient notes that 1 week ago on 09-04-2022 she underwent L-spine surgery. She was doing well and discharged home. She notes she has been taking the pain medication and notes decreased movement and believes that this has led to increasing pain in her low back. No fevers. She denies any lower extremity weakness, bowel or bladder incontinence, numbness or tingling in genital region. No fevers, chills, chest pain or shortness of breath. She notes she is able to stand but only for short periods of time. Current pain 10. Home Medications Medication Instructions Recorded Confirmed Type ibuprofen 200 mg tablet 600 mg PO Q6H PRN Pain 06/02/20 09/11/22 History acetaminophen 300 mg-codeine 30 mg 1 tab PO BID PRN Pain 06/28/20 09/11/22 History tablet buspirone 5 mg tablet 5 mg PO BID 06/28/20 09/11/22 History diazepam 10 mg tablet (Valium) 10 mg PO TID PRN Muscle Spasm 06/28/20 09/11/22 History fluoxetine 20 mg capsule (Prozac) 20 mg PO QAM 06/28/20 09/11/22 History fluticasone propionate 50 2 spray intranasal HS 06/28/20 09/11/22 History mcg/actuation nasal spray,suspension glimepiride 2 mg tablet 2 mg PO PM 06/28/20 09/11/22 History insulin lispro 100 unit/mL See Rx Instructions .Route .COMPLEX 06/28/20 09/11/22 History subcutaneous pen (Humalog KwikPen (U-100) Insulin) lisinopril 10 mg tablet 10 mg PO QAM 06/28/20 09/11/22 History ropinirole 0.5 mg tablet 0.5 mg PO HS 06/28/20 09/11/22 History simvastatin 20 mg tablet 20 mg PO HS 06/28/20 09/11/22 History Wheeled Walker #1 ea 06/29/20 09/04/22 Rx aspirin 81 mg tablet,delayed 81 mg PO BID 42 days #0 tabs 07/31/20 09/11/22 Rx release (Adult Low Dose Aspirin) semaglutide 1 mg/dose (4 mg/3 mL) 1 mg subcut Q7D 08/10/22 09/11/22 History subcutaneous pen injector (Ozempic) oxycodone 5 mg tablet 5 mg PO Q6H PRN pain #30 tabs 09/07/22 09/11/22 Rx tramadol 50 mg tablet 50 mg PO Q6H PRN pain, moderate 09/07/22 09/11/22 Rx #30 tabs gabapentin 100 mg capsule 100 mg PO TID 09/11/22 09/11/22 History Allergies Allergy/AdvReac Type Severity Reaction Status Date / Time sulfamethoxazole Allergy Intermediate Hives Verified 09/11/22 16:19 [From Bactrim] trimethoprim [From Bactrim] Allergy Intermediate Hives Verified 09/11/22 16:19 Past Med/Surg History Medical History Arthritis Asthma stable Depression Diabetes mellitus, type 2 IDDM Hyperlipidemia Hypertension Insomnia Mild scoliosis Morbid obesity Myocardial Infarction 10 years ago > medical management Peripheral neuropathy Pulmonary hypertension Borderline pulmonary HTN per 2018 echo Restless leg syndrome Sleep apnea no device Tricuspid valve disease Mild TR per 05/2018 echo Surgical History History of cardiac cath 10 years ago > no stents ([place]) History of carpal tunnel release R/L History of cholecystectomy History of colonoscopy History of hand surgery Left wrist (+ hardware) History of hysterectomy History of knee replacement R/L Left TKA (07/30/20): SAB + PNB at [facility]. No issues noted per post-op anesthesia progress note. History of tonsillectomy and adenoidectomy Hx of bilateral cataract extraction [place] teeth removed Family History Other No family history of adverse response to anesthesia Social History Smoking Status: Never smoker Second Hand Exposure: No; Do You Dip or Chew Tobacco: No; Tobacco Cessation Education Requested by Patient: No Hx Alcohol Use: No Hx Substance Use: No Preferred Language: Hebrew Communication Ability: Effective Tour Consultant Required: No Beliefs That Will Affect Care: None Current Living Situation: Family Current Living Situation Comment: DAUGHTER AND GRANDSON Other Information That Helps Us Care for You: No Feels Safe at Home: Yes Safety Concerns: Feels Safe At This Time Assistive Devices: Walker Review of Systems A total of 10 systems reviewed and were otherwise negative Physical Exam Vital Signs Vital Signs - 24 hr 09/11/22 12:19 09/11/22 13:02 Temperature 37.1 C Temperature Source Temporal Artery Scan Pulse Rate 85 84 Respiratory Rate 20 Respiratory Effort / Characteristics Non-Labored Spontaneous Respiratory Depth Normal Respiratory Pattern Regular Blood Pressure 115/78 Blood Pressure Mean 90 Blood Pressure Position Sitting Pulse Oximetry 95 Oxygen Delivery Method Room Air Sepsis Recent Fever Within 48 Hours No Sepsis New/Unexplained Change in Mental Status N/A Sepsis Action Taken by Nursing No Action Required VITAL SIGNS - Vital signs and nursing notes were reviewed. Stable and afebrile. GENERAL -57-year-old female appearing her stated age who is in no acute distress. Communicates well with provider and answers questions appropriately. SKIN -there is a dressing overlying the L-spine. Dressing briefly and gently removed and the surgical incision is intact without dehiscence or erythema. HEAD - NC/AT. EYES - Sclera anicteric. NECK - No nuchal rigidity. LUNGS -clear to auscultation CARDIAC - RRR ABDOMEN - Abdominal contour normal without pulsations or visible masses. BS normoactive all four quadrants. No tenderness, palpable masses, hepatosplenomegaly, or ascites noted. EXTREMITIES - No clubbing or peripheral cyanosis. No pretibial edema present. +5/5 strength noted in UE/LE bilaterally. NEUROLOGIC - Cranial nerves II through XII grossly intact. PSYCH - A&Ox3 and cooperates fully with examiner. Pt is very pleasant and interacts well with examiner. Course Administered Medications Buspirone HCl (Buspirone 5 Mg Tab) 5 mg PO BID [facility] Stop: 10/11/22 20:59 Last Admin: 09/12/22 08:12 Dose: 5 mg Documented By: Admin: 09/11/22 22:33 Dose: 5 mg Documented By: PLF Diazepam (Diazepam 5 Mg Tablet) 10 mg PO TID PRN PRN Reason: Muscle Spasm Stop: 10/11/22 14:20 Last Admin: 09/11/22 16:12 Dose: 10 mg Documented By: THAIS Fluoxetine HCl (Fluoxetine Hcl 20 Mg Cap) 20 mg PO QAM [facility] Stop: 10/12/22 08:59 Last Admin: 09/12/22 08:12 Dose: 20 mg Documented By: TAYE Fluticasone Propionate (Fluticasone Propionate Na Spr 16 Gm Btl) 2 sprays FRANCES HS [facility] Stop: 10/11/22 20:59 Last Admin: 09/11/22 22:32 Dose: 2 sprays Documented By: VIRGINIE Gabapentin (Gabapentin 100 Mg Cap) 100 mg PO TID [facility] Stop: 10/11/22 20:59 Last Admin: 09/12/22 08:11 Dose: 100 mg Documented By: Admin: 09/11/22 22:33 Dose: 100 mg Documented By: VIRGINIE Gabapentin (Gabapentin 100 Mg Cap) 100 mg PO TID [facility] Stop: 10/11/22 20:59 Last Admin: 09/12/22 08:12 Dose: 100 mg Documented By: Admin: 09/11/22 22:36 Dose: 100 mg Documented By: VIRGINIE Hydromorphone HCl (Hydromorphone Inj 1 Mg/Ml Syringe) 1 mg IV Q3H PRN PRN Reason: severe pain (scale 7-10) Stop: 09/25/22 13:33 Last Admin: 09/12/22 11:28 Dose: 1 mg Documented By: Admin: 09/12/22 01:35 Dose: 1 mg Documented By: Admin: 09/11/22 19:53 Dose: 1 mg Documented By: Admin: 09/11/22 16:13 Dose: 1 mg Documented By: THAIS Dexamethasone 8 mg/ Syringe 2 mls @ 1 mls/min IV DAILY [facility] Stop: 10/12/22 11:59 Last Admin: 09/12/22 12:39 Dose: 1 mls/min Documented By: TAYE Insulin Aspart (Insulin Aspart Per Unit Charge) 0 units SC ACHS [facility] Stop: 10/12/22 12:14 Last Admin: 09/12/22 12:53 Dose: 25 units Documented By: TAYE Co-signed By: CESAR Lisinopril (Lisinopril 10 Mg Tab) 10 mg PO QAM [facility] Stop: 10/12/22 08:59 Last Admin: 09/12/22 08:12 Dose: 10 mg Documented By: TAYE Lorazepam (Lorazepam 2 Mg/1 Ml Vial) 0.5 mg IV Q8H PRN PRN Reason: Sedation/Anxiety Stop: 10/11/22 13:33 Last Admin: 09/11/22 16:13 Dose: 0.5 mg Documented By: THAIS Oxycodone HCl (Oxycodone Hcl Ir 5 Mg Tab (Immediate Release)) 5 - 10 mg PO Q4H PRN PRN Reason: mod to severe pain Stop: 09/25/22 13:33 Last Admin: 09/12/22 10:00 Dose: 10 mg Documented By: TAYE Ropinirole HCl (Ropinirole Hcl 0.25 Mg Tablet) 0.5 mg PO HS [facility] Stop: 10/11/22 20:59 Last Admin: 09/11/22 22:34 Dose: 0.5 mg Documented By: VIRGINIE Senna/Docusate Sodium (Docusate Sodium/Senna 50/8.6mg Tab) 2 tab PO HS RANJITH Stop: 10/11/22 20:59 Last Admin: 09/11/22 22:38 Dose: 2 tab Documented By: VIRGINIE Simvastatin (Simvastatin 20 Mg Tab) 20 mg PO HS RANJITH Stop: 10/11/22 20:59 Last Admin: 09/11/22 22:37 Dose: 20 mg Documented By: VIRGINIE Discontinued Medications Hydromorphone HCl (Hydromorphone Inj 0.5 Mg/0.5 Ml Syr) 0.5 mg IV NOW STA Stop: 09/11/22 13:09 Last Admin: 09/11/22 13:37 Dose: 0.5 mg Documented By: THAIS Sodium Chloride (Nss 1000ml) 1,000 mls @ 75 mls/hr IV .[id number] RANJITH Stop: 10/11/22 13:44 Last Admin: 09/12/22 12:09 Dose: Not Given Documented By: Infusion: 09/12/22 04:32 Dose: 0 mls/hr Documented By: Admin: 09/11/22 15:12 Dose: 75 mls/hr Documented By: THAIS Insulin Aspart (Insulin Aspart Per Unit Charge) 0 units SC ACHS RANJITH Stop: 09/11/22 23:59 Last Admin: 09/11/22 22:46 Dose: 4 units Documented By: VIRGINIE Co-signed By: TRESSA Admin: 09/11/22 18:22 Dose: Not Given Documented By: THAIS Insulin Aspart (Insulin Aspart Per Unit Charge) 0 units SC Q4 RANJITH Stop: 10/12/22 00:00 Last Admin: 09/12/22 12:11 Dose: Not Given Documented By: Admin: 09/12/22 08:54 Dose: 2 units Documented By: TAYE Co-signed By: JASON Admin: 09/12/22 04:59 Dose: 2 units Documented By: VIRGINIE Co-signed By: TRESSA Admin: 09/12/22 01:22 Dose: 4 units Documented By: VIRGINIE Co-signed By: NIECY Insulin Glargine (Lantus Per Unit Charge) 25 units SC QDD RANJITH Stop: 09/11/22 16:31 Last Admin: 09/11/22 18:22 Dose: 25 units Documented By: THAIS Co-signed By: QGV Insulin Glargine (Lantus Per Unit Charge) 50 units SC ONE ONE Stop: 09/12/22 12:31 Last Admin: 09/12/22 12:52 Dose: 50 units Documented By: TAYE Co-signed By: CESAR Medical Decision Making Laboratory Data 09/11/22 12:44 09/11/22 12:44 Lab Results 09/11/22 09/11/22 09/11/22 Range/Units 12:44 12:44 12:44 WBC 14.97 H (4.8-10.8) K/ul RBC 4.33 (4.20-5.40) M/uL Hgb 12.5 (12.0-16.0) g/dl Hct 39.6 (37.0-47.0) % MCV 91.5 (80.0-100.0) fL MCH 28.9 (25.0-34.0) pg MCHC 31.6 L (32.0-36.0) g/dL RDW Std Deviation 46.5 H (36.4-46.3) fL RDW Coeff of Tam 13.8 (11.5-14.5) % Plt Count 286 (130-400) K/uL MPV 10.2 (9.4-12.4) fL Immature Gran % (Auto) 0.7 % Neut % (Auto) 72.0 % Lymph % (Auto) 18.6 % [place] % (Auto) 4.7 % Eos % (Auto) 3.7 % Baso % (Auto) 0.3 % Neut # (Auto) 10.77 H (1.40-6.50) K/uL Lymph # (Auto) 2.79 (1.2-3.4) K/uL [place] # (Auto) 0.71 H (0.11-0.59) K/uL Eos # (Auto) 0.55 H (0-0.50) K/uL Baso # (Auto) 0.05 (0-0.2) K/uL Immature Gran # (Auto) 0.10 (0.01-0.20) K/uL Sodium 136 (136-145) mmol/L Potassium 4.2 (3.5-5.1) mmol/L Chloride 101 (98-107) mmol/L Carbon Dioxide 27 (21-32) mmol/L Anion Gap 8 (3-11) BUN 19 (6-23) mg/dl Creatinine 0.74 (0.6-1.2) mg/dl Est Cr Clr Drug Dosing Not Reportable Est GFR ( Amer) 104.2 ml/min Est GFR (Non-Af Amer) 89.9 ml/min BUN/Creatinine Ratio 25.7 H (10-20) Glucose 187 H (70-99(Fasting)) mg/dl Calcium 9.2 (8.6-10.3) mg/dl Total Bilirubin 0.8 (0.2-1.0) mg/dl AST 19 (13-39) U/L ALT 33 (7-52) U/L Alkaline Phosphatase 78 (34-104) U/L Total Protein 7.5 (6.0-8.3) gm/dl Albumin 4.1 (3.4-5.0) gm/dl Globulin 3.4 (2.5-4.0) gm/dl Albumin/Globulin Ratio 1.2 (0.9-2) SARS-CoV-2, RNA, NAAT NEGATIVE (NEGATIVE) MDM Narrative Patient was seen and evaluated as above in room C12. Review was performed of triage nursing notes and vital signs. After obtaining a thorough history and physical examination the above work up was performed. I did review her recent operative report. Patient presents to us today for evaluation of low back pain and inability stand for long periods of time following recent L-spine surgery about a week ago. Patient does not appear toxic and clinically is overall well- appearing. No evidence of cauda equina syndrome by history or exam. Options of care were discussed with the patient. IV access was established. Labs were drawn. Mild leukocytosis without concerning anemia noted. No emerg ent metabolic disturbance. I discussed presentation with the patient's orthopedic news content specialist, Dr. Soria. He will admit the patient to the hospital for further evaluation and management. While here in the ED I did manage the patient's discomfort with IV analgesia. No indication for emergent antibiotics at this time pending close clinical follow-up in the inpatient setting. Please refer to further documentation regarding her stay. GCS: 15 In the evaluation and treatment of this patient the following differential diagnoses were entertained: Postoperative infection, abscess, seroma, electrolyte disturbance, UTI, among others Impression & Plan Status post lumbar spine surgery for decompression of spinal cord, Low back pain Discharge Plan Visit Data Chief Complaint: Leg Weakness, Bilateral Stated Complaint: WEAKNESS; PAIN IN LEGS ED Provider: Orlando Delgado ED Midlevel Provider: Mando Loya Discharge Problem: Status post lumbar spine surgery for decompression of spinal cord, Low back pain Patient Disposition: Admitted As Inpatient Condition: Good Discharge Instructions Interventions: ED Discharge Assessment Last Done: 09/11/22 14:22
[2022-09-11] MEDS ORDERED: LORazepam 2 MG/1 ML VIAL IV PRN (13:34)
[2022-09-11] MEDS ORDERED: ALUMINUM/MAGNESIUM SUSP 30 ML UDC PO PRN (13:34)
[2022-09-11] MEDS ORDERED: ONDANSETRON INJ 2 MG/ML 2 ML VIAL IV PRN (13:34)
[2022-09-11] MEDS ORDERED: SOD PHOSPHATE/SOD BIPHOSPHATE ENEMA 132 ML BTL PR PRN (13:34)
[2022-09-11] MEDS ORDERED: ACETAMINOPHEN 500 MG TAB PO PRN (13:34)
[2022-09-11] MEDS ORDERED: ACETAMINOPHEN 1,000 MG/100 ML VIAL IV PRN (13:34)
[2022-09-11] MEDS ORDERED: PROMETHAZINE HCL 12.5 MG in SODIUM CHLORIDE 0.9% 50 ML IV PRN (13:34)
[2022-09-11] MEDS ORDERED: traMADol HCL 50 MG TABLET PO PRN (13:34)
[2022-09-11] MEDS ORDERED: ONDANSETRON 4 MG OD TAB PO PRN (13:34)
[2022-09-11] MEDS ORDERED: NALOXONE HCL 0.4 MG/1 ML VIAL/CARP IV PRN (13:34)
[2022-09-11] MEDS ORDERED: diphenhydrAMINE Capsule 25 MG CAP PO PRN (13:34)
[2022-09-11] MEDS ORDERED: MAGNESIUM HYDROXIDE SUSP 30 ML UDC PO PRN (13:34)
[2022-09-11] MEDS ORDERED: PHARMACY GLYCEMIC MGMT CONSULT PRN (13:34)
[2022-09-11] MEDS ORDERED: METOCLOPRAMIDE HCL INJ 5 MG/ML 2 ML VIAL IV PRN (13:34)
[2022-09-11 13:42] LABS: Basophils # (auto) 0.05 K/uL (0-0.2); Basophils % (auto) 0.3 %; Eosinophils # (auto) 0.55 K/uL (0-0.50); Eosinophils % (auto) 3.7 %; Hematocrit (blood only) 39.6 % (37.0-47.0); Hemoglobin 12.5 g/dl (12.0-16.0); Immature Granulocytes % (auto) 0.7 %; Lymphocytes # (auto) 2.79 K/uL (1.2-3.4); Lymphocytes % (auto) 18.6 %; Mean Corpuscular Hemoglobin 28.9 pg (25.0-34.0); Mean Corpuscular Hgb Conc 31.6 g/dL (32.0-36.0); Mean Corpuscular Volume 91.5 fL (80.0-100.0); Mean Platelet Volume 10.2 fL (9.4-12.4); Monocytes # (auto) 0.71 K/uL (0.11-0.59); Monocytes % (auto) 4.7 %; Neutrophils # (auto) 10.77 K/uL (1.40-6.50); Platelet Count 286 K/uL (130-400); RDW Coefficient of Variation 13.8 % (11.5-14.5); RDW Standard Deviation 46.5 fL (36.4-46.3); Red Blood Count 4.33 M/uL (4.20-5.40); White Blood Count 14.97 K/ul (4.8-10.8)
[2022-09-11 13:53] LABS: Alanine Aminotransferase 33 U/L (7-52); Albumin Globulin Ratio 1.2 (0.9-2); Albumin Level 4.1 gm/dl (3.4-5.0); Alkaline Phosphatase 78 U/L (34-104); Anion Gap 8 (3-11); Aspartate Aminotransferase 19 U/L (13-39); BUN Creatinine Ratio 25.7 (10-20); Bilirubin,Total 0.8 mg/dl (0.2-1.0); Blood Urea Nitrogen 19 mg/dl (6-23); Calcium 9.2 mg/dl (8.6-10.3); Carbon Dioxide 27 mmol/L (21-32); Chloride 101 mmol/L (98-107); Est GFR (African American) 104.2 ml/min; Est GFR (Non-African American) 89.9 ml/min; Globulin 3.4 gm/dl (2.5-4.0); Glucose 187 mg/dl (70-99(Fasting)); Potassium 4.2 mmol/L (3.5-5.1); Sodium 136 mmol/L (136-145); Total Protein 7.5 gm/dl (6.0-8.3)
[2022-09-11] MEDS ORDERED: diazePAM 5 MG TABLET PO PRN (14:21)
[2022-09-11] MEDS ORDERED: GLUCOSE 40% GEL 15 GM TUBE PO PRN (14:45)
[2022-09-11] MEDS ORDERED: GLUCOSE 10 TAB/TUBE PO PRN (14:45)
[2022-09-11] MEDS ORDERED: GLUCAGON FOR INJ 1 MG VIAL IM PRN (14:45)
[2022-09-11] MEDS ORDERED: CARBOHYDRATES FOR HYPOGLYCEMIA PO PRN (14:45)
[2022-09-11] MEDS ORDERED: DEXTROSE 50% 50 ML SYRINGE IV PRN (14:45)
--- NOTE | 2022-09-11 14:49 | Pharmacy Report ---
Pharmacy Glycemic Short Note 2 - Date of Service September 11, 2022 - Glycemic Short BSG Results (Last 24 hours): 09/11/22 12:44 Glucose 187 H OUTPATIENT ANTIDIABETIC REGIMEN: * Amaryl 2 mg PO qPM * Ozempic 1 mg SQ weekly * Humalog ASSESSMENT: * Ms Gregory is a 57 y/o F with a PMH of T2DM who presents with leg weakness s/p lumbar surgery on 09/04/22. * During her previous admission, patient required > 100 units of insulin BUT she was received dexamethasone 6 mg IV daily. * Random BSG in the ER today (day of admission) was 187 mg/dL. * For basal insulin, will start with Lantus 25 units with dinner. This is half of weight-based stress of 3 adjusted body weight. Patient is to be NPO tomorrow. During previous admission, patient received 50-60 units of insulin per day. This was primarily driven by steroids. It is reasonable to half this dose when steroids are not involved. * Novolog weight-based stress of 3. More frequent checks since Lantus is less aggressive. PLAN FOR INPATIENT GLYCEMIC CONTROL: * Hold outpatient oral diabetes medications * Basal insulin * Lantus 25 units SQ x 1 then re-evaluate tomorrow * Bolus insulin * NovoLog per scale ACHS or Q6hrs while NPO * Goal Range: Low 110 mg/dL - High 140 mg/dL * Correction Factor: 15 mg/dL/unit * Nutritional / Prandial insulin per carb ratio of 1 unit per 5 grams CHO consumed
[2022-09-11] MEDS: SODIUM CHLORIDE 0.9% 1000ML 1,000 ML IV SCH (15:12)
[2022-09-11] MEDS: HYDROmorphone INJ 1 MG/ML SYRINGE IV PRN ×2 (16:13→19:53)
[2022-09-11] MEDS ORDERED: LANTUS PER UNIT CHARGE SC SCH (16:30)
[2022-09-11] MEDS: INSULIN ASPART PER UNIT CHARGE SC SCH ×2 (18:22→22:46)
--- NOTE | 2022-09-11 19:14 | Magnetic Resonance Report ---
MR lumbar spine wo con CLINICAL HISTORY: leg weakness s/p recent lumbar fusion (09/04) TECHNIQUE: Multiplanar sequences through the lumbar spine were obtained, without intravenous contrast . Comparison: Comparison is made to lumbar spine fluoroscopy 09/04/2022 FINDINGS: Fixation hardware is seen spanning L4-S1. Associated susceptibility artifact limits the usefulness of this exam. There is right-sided T2 hyperintense, T1 hypointense epidural collection at the level of the surgical bed. L1-L2: No significant abnormality. L2-L3: Broad-based posterior disc bulge with mild canal and neuroforaminal stenosis. L3-L4: There is a broad based posterior disc bulge and right posterior soft tissue with severe canal stenosis, AP diameter 4 mm. L4-L5: Prominent right posterior epidural soft tissue results in moderate canal stenosis, AP diameter 7 mm. L5-S1: No significant abnormality. The spinal ligaments are intact, without evidence of disruption or abnormal signal intensity. The spi nal cord is normal in signal intensity and there is no evidence of cord contusion. There is no eviden ce of an extradural, intradural, extramedullary or intramedullary lesion. Posterior soft tissue stran ding is seen. IMPRESSION: Postsurgical changes are seen with recent lumbar fusion. There is a prominent epidural collection theresa ng the length of the surgical bed which may reflect postsurgical seroma, less likely abscess on posto perative day 2. However, if there is clinical concern, MRI with contrast can be performed. ACT 112: Negative or not required by law. Electronically signed by: Mo Polk M.D. 09/11/2022 7:12 PM
[2022-09-11] MEDS ORDERED: GLIMEPIRIDE 2 MG TAB PO SCH (21:00)
[2022-09-11] MEDS: FLUTICASONE PROPIONATE NA SPR 16 GM BTL NAE SCH (22:32)
[2022-09-11] MEDS: GABAPENTIN 100 MG CAP PO SCH ×2 (22:33→22:36)
[2022-09-11] MEDS: busPIRone 5 MG TAB PO SCH (22:33)
[2022-09-11] MEDS: rOPINIRole HCL 0.25 MG TABLET PO SCH (22:34)
[2022-09-11] MEDS: SIMVASTATIN 20 MG TAB PO SCH (22:37)
[2022-09-11] MEDS: DOCUSATE SODIUM/SENNA 50/8.6MG TAB PO SCH (22:38)
[2022-09-12] MEDS: INSULIN ASPART PER UNIT CHARGE SC SCH ×7 (01:22→21:25)
[2022-09-12] MEDS: HYDROmorphone INJ 1 MG/ML SYRINGE IV PRN ×2 (01:35→11:28)
[2022-09-12] MEDS: GABAPENTIN 100 MG CAP PO SCH ×6 (08:11→19:28)
[2022-09-12] MEDS: busPIRone 5 MG TAB PO SCH ×2 (08:12→19:27)
[2022-09-12] MEDS: FLUoxetine HCL 20 MG CAP PO SCH (08:12)
--- NOTE | 2022-09-12 08:25 | History and Physical Report ---
DATE OF ADMISSION: 09/11/2022 CHIEF COMPLAINT: Back numbness and weakness in the lower extremities.Consulted for HTN and DM. HISTORY OF PRESENT ILLNESS: This is a 57-year-old female with past medical history significant for type 2 diabetes, hypertension, restless legs syndrome, hyperlipidemia, status post L4-L5 decompressive surgery done on 09/04/2022 and discharged on 09/07/2022. She states she was doing okay. She is ambulating with a walker, but since weekend, she was feeling weakness in the lower extremities, especially in the thigh region. Legs were giving way. She called the orthopedics' office and was advised to come to the hospital. Denies any incontinence. Denies any loss of sensations. Resting comfortably and hemodynamically stable. Denies any headache. No dizziness, no blurred visions, no earache, no runny nose, no sore throat, no cough, no chest pain, no shortness of breath, no nausea, and no abdominal pain. She states she has irritable bowels and has alternating constipation and diarrhea. No blood in stools. Normal bladder movements. Afebrile. Denies any fevers. ALLERGIES: BACTRIM. PAST MEDICAL HISTORY: As mentioned above, history of asthma, depression, obesity, history of OH, medical management; peripheral neuropathy, pulmonary hypertension, sleep apnea, but not using oxygen; and mild tricuspid regurgitation. PAST SURGICAL HISTORY: Heart cath, history of carpal tunnel release, bilateral; history of cholecystectomy, colonoscopy, history of hand surgery, left wrist; history of hysterectomy, bilateral knee replacement, history of tonsillectomy and adenoidectomy, history of bilateral cataract extraction, and wisdom tooth removed. FAMILY HISTORY: No family history of adverse response to anesthesia. SOCIAL HISTORY: No smoking history. No alcohol use. No drug use. MEDICATIONS: The patient is on Tylenol with Codeine 1 tablet p.o. b.i.d. p.r.n., aspirin 81 mg p.o. b.i.d., buspirone 5 mg p.o. b.i.d., Valium 10 mg p.o. t.i.d. p.r.n. for muscle spasm, Prozac 20 mg p.o. a.m., Flonase 2 sprays intranasal at bedtime, gabapentin 100 mg p.o. t.i.d., glimepiride 2 mg p.o. a.m., ibuprofen 600 mg p.o. q.6 hours p.r.n., insulin sliding scale, lisinopril 10 mg p.o. daily, oxycodone 5 mg p.o. q.6 hours p.r.n., Ozempic 1 mg subcutaneous q.7 days, ropinirole 0.5 mg p.o. at bedtime, simvastatin 20 mg p.o. at bedtime, and tramadol 50 mg p.o. q.6 hours p.r.n. REVIEW OF SYSTEMS: As per HPI. Rest of the review of systems is negative. PHYSICAL EXAMINATION: GENERAL: The patient is morbidly obese, not in acute distress. VITAL SIGNS: Temperature 36.7, pulse 94, respiratory rate 18, blood pressure 129/84, and oxygen saturation 94% on room air. HEENT: Extraocular muscles intact. Oral mucosa moist. NECK: No JVD. No neck masses. CARDIOVASCULAR: S1 and S2 heard. Regular rate and rhythm. No murmur. No gallop. RESPIRATORY SYSTEM: Normal AP diameter. No accessory muscle use. No wheezing. No crackles. ABDOMEN: Soft, bowel sounds present, nontender, and no distention. CENTRAL NERVOUS SYSTEM: Alert and oriented. Speech is clear. No facial droop. Obeys simple commands. Moves extremities. MUSCULOSKELETAL: Status post back surgery, dressing intact. No surrounding erythema. No obvious drainage seen. EXTREMITIES: No edema. No erythema. Power is 5/5 in lower extremities. Sensation is intact. LABORATORY DATA: WBC 14, hemoglobin 12.5, hematocrit 39.6, and platelets 286. Sodium 136, potassium 4.2, chloride 101, CO2 of 27, BUN 19, creatinine 0.7, serum glucose 187, and calcium 9.2. Total bilirubin 0.8, AST 19, ALT 78, and alkaline phosphatase 78. SARS-COVID rapid test negative. IMAGING DATA: Lumbar spine MRI: Postsurgical changes are seen with recent lumbar fusion. There is a prominent epidural collection along the length of the surgical bed, which may reflect postsurgical seroma, less likely abscess however, if there is clinical concern, MRI with contrast can be performed. ASSESSMENT AND PLAN: This is a 57-year-old female, who recently had back surgery comes with weakness of lower extremities. 1. Weakness, ambulatory dysfunction, and recent back surgery. Mostly seroma , less likely abscess as per MRI. Further management as per orthopedics. 2. History of diabetes, on insulin sliding scale. Glycemic pharmacy consulted. 3. History of hypertension. Continue her lisinopril. We will monitor the blood pressure. 4. Hyperlipidemia, on statin. 5. Obesity. Needs counseling 6. Deep venous thrombosis prophylaxis and disposition as per orthopedics. Job ID: [id number] [facility]
[2022-09-12] MEDS ORDERED: lisinopril 10 MG TAB PO SCH (09:00)
[2022-09-12] MEDS: oxyCODONE HCL IR 5 MG TAB (IMMEDIATE RELEASE) PO PRN ×3 (10:00→23:29)
[2022-09-12 10:56] LABS: Basophils # (auto) 0.07 K/uL (0-0.2); Basophils % (auto) 0.6 %; Eosinophils # (auto) 0.76 K/uL (0-0.50); Eosinophils % (auto) 6.9 %; Hematocrit (blood only) 37.7 % (37.0-47.0); Hemoglobin 11.7 g/dl (12.0-16.0); Immature Granulocytes # (auto) 0.07 K/uL (0.01-0.20); Immature Granulocytes % (auto) 0.6 %; Lymphocytes # (auto) 2.76 K/uL (1.2-3.4); Mean Corpuscular Hemoglobin 28.5 pg (25.0-34.0); Mean Platelet Volume 10.2 fL (9.4-12.4); Monocytes # (auto) 0.73 K/uL (0.11-0.59); Monocytes % (auto) 6.6 %; Neutrophils # (auto) 6.67 K/uL (1.40-6.50); Neutrophils % (auto) 60.3 %; Platelet Count 251 K/uL (130-400); RDW Coefficient of Variation 13.8 % (11.5-14.5); RDW Standard Deviation 47.2 fL (36.4-46.3); White Blood Count 11.06 K/ul (4.8-10.8)
[2022-09-12 11:02] LABS: BUN Creatinine Ratio 29.5 (10-20); C Reactive Protein 8.87 mg/dl (0-0.5); Calcium 8.6 mg/dl (8.6-10.3); Est GFR (African American) 116.6 ml/min; Est GFR (Non-African American) 100.6 ml/min; Potassium 4.1 mmol/L (3.5-5.1)
--- NOTE | 2022-09-12 11:49 | Hospitalist Progress Note ---
Date of Service September 12, 2022 Assessment & Plan (1) Status post lumbar spine surgery for decompression of spinal cord: (2) Ambulatory dysfunction: (3) Diabetes mellitus, type 2: (4) Hypertension: Plan Neurogenic claudication due to lumbar spinal stenosis S/P L4-S1 decompression fusion by Dr. Soria on 09/04/22 Ambulatory dysfunction with pain/weakness pt admitted to [facility] surg MRI:postsurgical changes are seen with recent lumbar fusion. There is a prominent epidural collection along the length of the surgical bed which may reflect postsurgical seroma, less likely abscess on postoperative day 2. However, if there is clinical concern, MRI with contrast can be performed. Dr. Soria consulted - await for further ortho input pt afebrile, wbc stable at 11k, esr 66, crp 8.87 pain/wound management per ortho Acute blood loss anemia postsurgical hgb recovering well post op, 11.7 T2DM A1c 7.8 Glycemic pharmacy consulted - appreciate their management BSG 161, 171 Hypertension BP on lower side Hold lisinopril for now, resume when able DVT prophylaxis: SCDS Dispo: uncertain but patient may need rehab, pt requesting Rollator walker with seat and breaks Patient seen in collaboration with Dr. Hunter Thank you for this consultation. We will follow the patient with you during their hospital stay. You can reach a member of the [facility] Hospitalist Team 20/11 via hospitalist role on tiger text. A total of 45 was spent coordinating, documenting, and providing care for this patient excluding time spent in the performance of separately billed services. This included personally viewing all current laboratories and imaging studies, medication reconciliation, outpatient chart review, and discussion with specialists. Admission and Anticipated Discharge Date Admission Date: September 11, 2022 Supervising Physician Co-Signing Physician Notes Pt seen and examined by me, care coordinated w/ Keiko Cárdenas PA-C, pls refer to her note above for further detail. Patient recently underwent lumbar spine surgery with Dr. Soria, now presents back to the hospital with lower extremity pain with ambulation. Currently laying in bed, in no acute distress. Underwent lumbar spine MRI. She is awake alert oriented answering questions appropriately, breathing comfortably on room air. She is afebrile. Lungs are clear to auscultation. Heart sounds regular. Abdomen soft nontender nondistended. She is moving extremities. Discussed with orthopedic surgeon at the bedside, no plan for procedure at this time, or any other imaging. Patient can have diet. Will initiate PT OT. We will continue to closely monitor. MD Elsa Subjective Patient was seen and examined in room 353. She is status post lumbar surgery on 09/04/2022. After being discharged home patient was having difficulty with her legs giving out on her. She also complained of pain to the outside aspects of bilateral legs. She has been using a walker with wheels and felt that every time it moved forward she fell backward. She was not doing well at home and unable to care for self. Currently she complains of pain. She is questioning what the current plan is. She denies fever, chills, sweats, lightheadedness, dizziness, chest pain, shortness breath, nausea, vomiting, abdominal pain. Review of Systems Review of Systems: All systems reviewed & are unremarkable except as noted in HPI & below Physical Exam Physical Exam: Gen: WD/WN, obese, female, ambulating in room to and from bathroom, slowed gait NAD, A&O x3 HEENT: Normocephalic, atraumatic, conjunctivae moist, sclerae anicteric, mucous membranes moist. Lung: Clear to Auscultation bilaterally, no wheezes/rales/rhonchi Heart: Regular rate, regular rhythm, no murmurs, rubs, or gallops Abdomen: Soft, NT, ND +BS x 4, obese abdomen Extremities: No edema Skin: Warm, no rash, negative turgor. Lumbar dressing CDI Results & Data Results & Data Vital Signs (Past 12 Hours) Vital Signs Temp Pulse Resp BP Pulse Ox O2 Del Method 09/12/22 07:15 36.8 C 73 16 101/58 L 95 Room Air Laboratory Results Short CBC 09/11/22 09/12/22 Range/Units 12:44 10:19 WBC 14.97 H 11.06 H (4.8-10.8) K/ul Hgb 12.5 11.7 L (12.0-16.0) g/dl Hct 39.6 37.7 (37.0-47.0) % Plt Count 286 251 (130-400) K/uL BMP 09/11/22 09/12/22 12:44 10:19 Sodium 136 136 Potassium 4.2 4.1 Chloride 101 104 Carbon Dioxide 27 25 BUN 19 18 Creatinine 0.74 0.61 Glucose 187 H 161 H Calcium 9.2 8.6 Liver Function 09/11/22 Range/Units 12:44 Total Bilirubin 0.8 (0.2-1.0) mg/dl AST 19 (13-39) U/L ALT 33 (7-52) U/L Alkaline Phosphatase 78 (34-104) U/L Albumin 4.1 (3.4-5.0) gm/dl Medications Administered Current Inpatient Medications Acetaminophen (Acetaminophen 500 Mg Tab) 1,000 mg PO Q8H PRN PRN Reason: MILD Pain Scale 1,2,3 & Pre PT Stop: 10/11/22 13:33 Al Hydrox/Mg Hydrox/Simethicone (Aluminum/Magnesium Susp 30 Ml Udc) 30 ml PO Q6H PRN PRN Reason: Dyspepsia Stop: 10/11/22 13:33 Bisacodyl (Bisacodyl 10 Mg Supp) 10 mg GA DAILY PRN PRN Reason: Constipation Stop: 10/13/22 13:34 Buspirone HCl (Buspirone 5 Mg Tab) 5 mg PO BID [facility] Stop: 10/11/22 20:59 Last Admin: 09/12/22 08:12 Dose: 5 mg Dextrose (Dextrose 50% 50 Ml Syringe) 25 - 50 ml IV UD PRN; Protocol PRN Reason: Hypoglycemia Protocol Stop: 10/11/22 14:44 Diazepam (Diazepam 5 Mg Tablet) 10 mg PO TID PRN PRN Reason: Muscle Spasm Stop: 10/11/22 14:20 Last Admin: 09/11/22 16:12 Dose: 10 mg Diphenhydramine HCl (Diphenhydramine Capsule 25 Mg Cap) 25 mg PO Q6H PRN PRN Reason: Allergic Rhinitis/Insomnia Stop: 10/11/22 13:33 Fluoxetine HCl (Fluoxetine Hcl 20 Mg Cap) 20 mg PO QAM [facility] Stop: 10/12/22 08:59 Last Admin: 09/12/22 08:12 Dose: 20 mg Fluticasone Propionate (Fluticasone Propionate Na Spr 16 Gm Btl) 2 sprays FRANCES HS [facility] Stop: 10/11/22 20:59 Last Admin: 09/11/22 22:32 Dose: 2 sprays Gabapentin (Gabapentin 100 Mg Cap) 100 mg PO TID [facility] Stop: 10/11/22 20:59 Last Admin: 09/12/22 08:11 Dose: 100 mg Gabapentin (Gabapentin 100 Mg Cap) 100 mg PO TID [facility] Stop: 10/11/22 20:59 Last Admin: 09/12/22 08:12 Dose: 100 mg Glucagon (Glucagon For Inj 1 Mg Vial) 1 mg IM UD PRN; Protocol PRN Reason: Hypoglycemia Protocol Stop: 10/11/22 14:44 Glucose (Glucose 40% Gel 15 Gm Tube) 15 - 30 gm PO UD PRN; Protocol PRN Reason: Hypoglycemia Protocol Stop: 10/11/22 14:44 Glucose (Glucose 10 Tab/Tube) 4 - 8 tab PO UD PRN; Protocol PRN Reason: Hypoglycemia Protocol Stop: 10/11/22 14:44 Hydromorphone HCl (Hydromorphone Inj 1 Mg/Ml Syringe) 1 mg IV Q3H PRN PRN Reason: severe pain (scale 7-10) Stop: 09/25/22 13:33 Last Admin: 09/12/22 11:28 Dose: 1 mg Sodium Chloride (Nss 1000ml) 1,000 mls @ 75 mls/hr IV .[id number] [facility] Stop: 10/11/22 13:44 Last Infusion: 09/12/22 04:32 Dose: Infused Promethazine HCl 12.5 mg/ (Sodium Chloride) 50.5 mls @ 202 mls/hr IV Q6H PRN PRN Reason: Nausea &/or Vomiting Stop: 10/11/22 13:33 Acetaminophen (Ofirmev) 1,000 mg in 100 mls @ 400 mls/hr IV Q8H PRN PRN Reason: Pain Rating 1-3 & Pre PT Stop: 09/12/22 13:35 Insulin Aspart (Insulin Aspart Per Unit Charge) 0 units SC Q4 [facility] Stop: 10/12/22 00:00 Last Admin: 09/12/22 08:54 Dose: 2 units Lisinopril (Lisinopril 10 Mg Tab) 10 mg PO QAM [facility] Stop: 10/12/22 08:59 Last Admin: 09/12/22 08:12 Dose: 10 mg Lorazepam (Lorazepam 2 Mg/1 Ml Vial) 0.5 mg IV Q8H PRN PRN Reason: Sedation/Anxiety Stop: 10/11/22 13:33 Last Admin: 09/11/22 16:13 Dose: 0.5 mg Magnesium Hydroxide (Magnesium Hydroxide Susp 30 Ml Udc) 30 ml PO Q24H PRN PRN Reason: Constipation Stop: 10/11/22 13:33 Metoclopramide HCl (Metoclopramide Hcl Inj 5 Mg/Ml 2 Ml Vial) 10 mg IV Q6H PRN PRN Reason: Nausea &/or Vomiting Stop: 10/11/22 13:33 Miscellaneous (Carbohydrates For Hypoglycemia ) 15 - 30 gm PO UD PRN PRN Reason: Hypoglycemia Treatment Stop: 10/11/22 14:44 Miscellaneous Information (Pharmacy Glycemic Mgmt Consult) 1 each N/A UD PRN PRN Reason: Consult Stop: 10/11/22 13:33 Naloxone HCl (Naloxone Hcl 0.4 Mg/1 Ml Vial/Carp) 0.1 mg IV Q5M PRN PRN Reason: Oversedation/respiratory dep Stop: 10/11/22 13:33 Ondansetron HCl (Ondansetron Inj 2 Mg/Ml 2 Ml Vial) 4 mg IV Q6H PRN PRN Reason: Nausea &/or Vomiting Stop: 10/11/22 13:33 Ondansetron HCl (Ondansetron 4 Mg Od Tab) 4 mg PO Q6H PRN PRN Reason: Nausea Stop: 10/11/22 13:33 Oxycodone HCl (Oxycodone Hcl Ir 5 Mg Tab (Immediate Release)) 5 - 10 mg PO Q4H PRN PRN Reason: mod to severe pain Stop: 09/25/22 13:33 Last Admin: 09/12/22 10:00 Dose: 10 mg Ropinirole HCl (Ropinirole Hcl 0.25 Mg Tablet) 0.5 mg PO [facility] Stop: 10/11/22 20:59 Last Admin: 09/11/22 22:34 Dose: 0.5 mg Senna/Docusate Sodium (Docusate Sodium/Senna 50/8.6mg Tab) 2 tab PO HS RANJITH Stop: 10/11/22 20:59 Last Admin: 09/11/22 22:38 Dose: 2 tab Simvastatin (Simvastatin 20 Mg Tab) 20 mg PO [facility] Stop: 10/11/22 20:59 Last Admin: 09/11/22 22:37 Dose: 20 mg Sodium Biphosphate/Sodium Phosphate (Sod Phosphate/Sod Biphosphate Enema 132 Ml Btl) 132 ml GA ONE PRN PRN Reason: Constipation Stop: 10/11/22 13:33 Tramadol HCl (Tramadol Hcl 50 Mg Tablet) 50 - 100 mg PO Q4H PRN PRN Reason: Moderate-Severe pain & Pre PT Stop: 10/11/22 13:33
--- NOTE | 2022-09-12 11:59 | History & Physical Report ---
Date of Service September 12, 2022 Assessment & Plan (1) Status post lumbar spine surgery for decompression of spinal cord: Plan: MRI of the lumbar spine performed yesterday does demonstrate evidence of a postoperative seroma. This is in the normal pattern. I do not believe she is infected at this time. Many of your symptoms appear to be inflammatory in nature particular on the bilateral IT bands. Will initiate physical therapy occupational therapy and hopefully transfer to rehab in the next few days. Admission and Anticipated Discharge Date Admission Date: September 11, 2022 History of Present Illness Chief Complaint: Bilateral leg pain Primary Care Provider: Edgar Jain DO This is a 57-year-old female who is status post multilevel lumbar compression fusion. She had done well postoperatively and went to return home became s omewhat inactive. She was not ambulating on a regular basis. She did not denies any fevers chills. Denies radicular complaints at rest. She states majority of symptoms is along the bilateral lateral thighs but not extending below the knees. Allergies Allergy/AdvReac Type Severity Reaction Status Date / Time sulfamethoxazole Allergy Intermediate Hives Verified 09/11/22 16:19 [From Bactrim] trimethoprim [From Bactrim] Allergy Intermediate Hives Verified 09/11/22 16:19 Home Medications Medication Instructions Recorded Confirmed Type ibuprofen 200 mg tablet 600 mg PO Q6H PRN Pain 06/02/20 09/11/22 History acetaminophen 300 mg-codeine 30 mg 1 tab PO BID PRN Pain 06/28/20 09/11/22 History tablet buspirone 5 mg tablet 5 mg PO BID 06/28/20 09/11/22 History diazepam 10 mg tablet (Valium) 10 mg PO TID PRN Muscle Spasm 06/28/20 09/11/22 History fluoxetine 20 mg capsule (Prozac) 20 mg PO QAM 06/28/20 09/11/22 History fluticasone propionate 50 2 spray intranasal HS 06/28/20 09/11/22 History mcg/actuation nasal spray,suspension glimepiride 2 mg tablet 2 mg PO PM 06/28/20 09/11/22 History insulin lispro 100 unit/mL See Rx Instructions .Route .COMPLEX 06/28/20 09/11/22 History subcutaneous pen (Humalog KwikPen (U-100) Insulin) lisinopril 10 mg tablet 10 mg PO QAM 06/28/20 09/11/22 History ropinirole 0.5 mg tablet 0.5 mg PO HS 06/28/20 09/11/22 History simvastatin 20 mg tablet 20 mg PO HS 06/28/20 09/11/22 History Wheeled Walker #1 ea 06/29/20 09/04/22 Rx aspirin 81 mg tablet,delayed 81 mg PO BID 42 days #0 tabs 07/31/20 09/11/22 Rx release (Adult Low Dose Aspirin) semaglutide 1 mg/dose (4 mg/3 mL) 1 mg subcut Q7D 08/10/22 09/11/22 History subcutaneous pen injector (Ozempic) oxycodone 5 mg tablet 5 mg PO Q6H PRN pain #30 tabs 09/07/22 09/11/22 Rx tramadol 50 mg tablet 50 mg PO Q6H PRN pain, moderate 09/07/22 09/11/22 Rx #30 tabs gabapentin 100 mg capsule 100 mg PO TID 09/11/22 09/11/22 History Past Med/Surg History Medical History Arthritis Asthma stable Depression Diabetes mellitus, type 2 IDDM Hyperlipidemia Hypertension Insomnia Mild scoliosis Morbid obesity Myocardial Infarction 10 years ago > medical management Peripheral neuropathy Pulmonary hypertension Borderline pulmonary HTN per 2018 echo Restless leg syndrome Sleep apnea no device Tricuspid valve disease Mild TR per 05/2018 echo Surgical History History of cardiac cath 10 years ago > no stents ([place]) History of carpal tunnel release R/L History of cholecystectomy History of colonoscopy History of hand surgery Left wrist (+ hardware) History of hysterectomy History of knee replacement R/L Left TKA (07/30/20): SAB + PNB at [facility]. No issues noted per post-op anesthesia progress note. History of tonsillectomy and adenoidectomy Hx of bilateral cataract extraction [place] teeth removed Family History Other No family history of adverse response to anesthesia Social History Smoking Status: Never smoker Second Hand Exposure: No; Do You Dip or Chew Tobacco: No; Tobacco Cessation Education Requested by Patient: No Hx Alcohol Use: No Hx Substance Use: No Preferred Language: Faroese Communication Ability: Effective Steward Dishwasher Required: No Beliefs That Will Affect Care: None Current Living Situation: Family Current Living Situation Comment: DAUGHTER AND GRANDSON Other Information That Helps Us Care for You: No Feels Safe at Home: Yes Safety Concerns: Feels Safe At This Time Assistive Devices: Walker Physical Exam Physical Exam: On exam she is currently in bed. She has excellent strength detailed testing bilateral plantarflexion dorsiflexion quadriceps. Sensory symmetric and intact to cold and light touch. She is exquisitely tender palpation the bilateral IT bands and greater trochanteric regions. Incision is healing appropriately. Results & Data Results & Data Vital Signs (Past 12 Hours) Vital Signs Temp Pulse Resp BP Pulse Ox O2 Del Method 09/12/22 07:15 36.8 C 73 16 101/58 L 95 Room Air
[2022-09-12] MEDS ORDERED: Nursing to Pharmacy Communication SCH (12:00)
[2022-09-12] MEDS: SODIUM CHLORIDE 0.9% 1000ML 1,000 ML IV SCH (12:09)
[2022-09-12] MEDS ORDERED: LANTUS PER UNIT CHARGE SC ONE (12:30)
[2022-09-12] MEDS: dexAMETHasone 8 MG in SYRINGE 0 ML IV SCH (12:39)
--- NOTE | 2022-09-12 12:41 | Pharmacy Report ---
Pharmacy Glycemic Short Note 2 - Date of Service September 12, 2022 - Glycemic Short BSG Results (Last 24 hours): 09/11/22 09/11/22 09/11/22 12:44 16:42 20:27 Glucose 187 H POC Glucose 194 H 190 H 09/12/22 09/12/22 09/12/22 00:48 04:40 07:57 Glucose POC Glucose 192 H 161 H 171 H 09/12/22 09/12/22 10:19 12:11 Glucose 161 H POC Glucose 156 H OUTPATIENT ANTIDIABETIC REGIMEN: * Amaryl 2 mg PO qPM * Ozempic 1 mg SQ weekly * Humalog HbA1c: 7.8% (08/21/22) ASSESSMENT: 09/12/22: * BSGs well-controlled yesterday * POD #8 s/p lumbar decompression/fusion - weakness/pain not believed to be related to an infection * No further surgical intervention planned at this time - diet initiated * Dexamethasone 8 mg IV daily started today - will increase insulin significantly today 09/11/22: * Ms Gregory is a 57 y/o F with a PMH of T2DM who presents with leg weakness s/p lumbar surgery on 09/04/22. * During her previous admission, patient required > 100 units of insulin BUT she was received dexamethasone 6 mg IV daily. * Random BSG in the ER today (day of admission) was 187 mg/dL. * For basal insulin, will start with Lantus 25 units with dinner. This is half of weight-based stress of 3 adjusted body weight. Patient is to be NPO tomorrow. During previous admission, patient received 50-60 units of insulin per day. This was primarily driven by steroids. It is reasonable to half this dose when steroids are not involved. * Novolog weight-based stress of 3. More frequent checks since Lantus is less aggressive. PLAN FOR INPATIENT GLYCEMIC CONTROL: * Hold outpatient oral diabetes medications * Basal insulin * Lantus 50 units SC x 1 (give with dexamethasone) * Reassess in AM * Bolus insulin * NovoLog per scale ACHS or Q6hrs while NPO * Goal Range: Low 110 mg/dL - High 140 mg/dL * Correction Factor: 10 mg/dL/unit * Nutritional / Prandial insulin per carb ratio of 1 unit per 3 grams CHO consumed
[2022-09-12] MEDS: FLUTICASONE PROPIONATE NA SPR 16 GM BTL NAE SCH (19:27)
[2022-09-12] MEDS: rOPINIRole HCL 0.25 MG TABLET PO SCH (19:28)
[2022-09-12] MEDS: SIMVASTATIN 20 MG TAB PO SCH (19:29)
[2022-09-12] MEDS: DOCUSATE SODIUM/SENNA 50/8.6MG TAB PO SCH (19:32)
[2022-09-13] MEDS: oxyCODONE HCL IR 5 MG TAB (IMMEDIATE RELEASE) PO PRN ×3 (03:30→20:11)
[2022-09-13 07:22] LABS: Hematocrit (blood only) 33.6 % (37.0-47.0); Hemoglobin 10.8 g/dl (12.0-16.0); Mean Corpuscular Hemoglobin 28.6 pg (25.0-34.0); Mean Corpuscular Hgb Conc 32.1 g/dL (32.0-36.0); Mean Corpuscular Volume 89.1 fL (80.0-100.0); Mean Platelet Volume 10.3 fL (9.4-12.4); Platelet Count 273 K/uL (130-400); RDW Coefficient of Variation 13.4 % (11.5-14.5); RDW Standard Deviation 43.9 fL (36.4-46.3); Red Blood Count 3.77 M/uL (4.20-5.40); White Blood Count 9.97 K/ul (4.8-10.8)
[2022-09-13] MEDS: dexAMETHasone 8 MG in SYRINGE 0 ML IV SCH (07:40)
[2022-09-13] MEDS: busPIRone 5 MG TAB PO SCH ×2 (07:41→19:28)
[2022-09-13] MEDS: GABAPENTIN 100 MG CAP PO SCH ×6 (07:41→19:30)
[2022-09-13] MEDS: FLUoxetine HCL 20 MG CAP PO SCH (07:41)
[2022-09-13 07:43] LABS: BUN Creatinine Ratio 30.2 (10-20); Calcium 9.1 mg/dl (8.6-10.3); Creatinine Clr Calc Pharmacy 188.7 ml/min; Est GFR (African American) 122.2 ml/min; Est GFR (Non-African American) 105.4 ml/min; Potassium 4.4 mmol/L (3.5-5.1)
[2022-09-13] MEDS: LANTUS PER UNIT CHARGE SC SCH (08:47)
[2022-09-13] MEDS: INSULIN ASPART PER UNIT CHARGE SC SCH ×4 (08:48→21:13)
--- NOTE | 2022-09-13 08:48 | Orthopedic Progress Note ---
Date of Service September 13, 2022 Assessment & Plan (1) Status post lumbar spine surgery for decompression of spinal cord: Plan: Alysha was readmitted to the hospital for bursitis/IT band inflammation. Steroids have been quite beneficial in helping control her pain. She is currently deciding if she wants to go home versus to a rehab. Authorization is pending for rehab. Anticipate she will be able to be discharged as early as tomorrow. Otherwise continue same spine precautions Admission and Anticipated Discharge Date Admission Date: September 11, 2022 Subjective Alysha states her hip pain is greatly improved because of the steroids. She at this point is unsure if she wants return home or to rehab upon discharge from this hospital stay. She is up and ambulatory with assistance of a walker. No other issues overnight. Review of Systems Review of Systems: All systems reviewed & are unremarkable except as noted in HPI & below Physical Exam Physical Exam: She sitting in a chair in no acute distress Alert and oriented x3 Tenderness over the greater trochanter region Strength is intact bilateral lower extremities Calf soft and nontender bilaterally Results & Data Vital Signs (Past 12 Hours) Vital Signs Temp Pulse Resp BP Pulse Ox O2 Del Method 09/13/22 07:31 36.5 C 70 17 112/70 95 Room Air 09/12/22 21:36 36.6 C 70 18 114/73 93 Room Air
--- NOTE | 2022-09-13 11:58 | Hospitalist Progress Note ---
Date of Service September 13, 2022 Assessment & Plan (1) Status post lumbar spine surgery for decompression of spinal cord: (2) Ambulatory dysfunction: (3) Diabetes mellitus, type 2: (4) Hypertension: Plan Neurogenic claudication due to lumbar spinal stenosis S/P L4-S1 decompression fusion by Dr. Soria on 09/04/22 Ambulatory dysfunction with pain/weakness pt admitted to med surg MRI:postsurgical changes are seen with recent lumbar fusion. There is a prominent epidural collection along the length of the surgical bed which may reflect postsurgical seroma, less likely abscess on postoperative day 2. However, if there is clinical concern, MRI with contrast can be performed. Dr. Soria consulted -no surgical intervention required, received IV steroids, plan for PT OT evaluation and possible DC to rehab or DC to pt afebrile, wbc stable at 11k, esr 66, crp 8.87 pain/wound management per ortho Acute blood loss anemia postsurgical hgb recovering well post op, 10.8 T2DM A1c 7.8 Glycemic pharmacy consulted - appreciate their management BSG 210 and 220 likely elevated in setting of steroid use Hypertension BP on lower side Hold lisinopril for now, resume when able DVT prophylaxis: SCDS Dispo: uncertain but patient may need rehab, pt requesting Rollator walker with seat and breaks Patient seen in collaboration with Dr. Gil Thank you for this consultation. We will follow the patient with you during their hospital stay. You can reach a member of the [facility] Hospitalist Team 20/11 via hospitalist role on tiger text. A total of 45 was spent coordinating, documenting, and providing care for this patient excluding time spent in the performance of separately billed services. This included personally viewing all current laboratories and imaging studies, medication reconciliation, outpatient chart review, and discussion with specialists. Admission and Anticipated Discharge Date Admission Date: September 11, 2022 Supervising Physician Co-Signing Physician Notes Pt seen and examined by me, care coordinated w/ Keiko Cárdenas PA-C, pls refer to her note above for further detail. Patient recently underwent lumbar spine surgery with Dr. Soria, now presents back to the hospital with Rt hip pain, pt to avoid lying on the sides, is getting steroid, now with improving pain control. Currently laying in bed, in no acute distress. Underwent lumbar spine MRI. She is awake alert oriented answering questions appropriately, breathing comfortably on room air. She is afebrile. Lungs are clear to auscultation. Heart sounds regular. Abdomen soft nontender nondistended. She is moving extremities. Per orthospine, no plan for procedure at this time, or any other imaging.c/wPT OT. We will continue to closely monitor. Awaiting placement. I have seen and examined the patient and have discussed the case with the provider above. I agree with the assessment and plan as stated. Subjective Patient was seen and examined in room 353. She is status post lumbar surgery on 09/04/2022. Patient states that she is improving since having IV steroids. She is ambulating better with her walker but is still requesting a rollator to return to home. She is wishing to return home as opposed to rehab due to needing to care for her grandson. Her appetite is okay. She denies fever, chills, sweats, chest pain, shortness breath, nausea, vomiting. Review of Systems Review of Systems: All systems reviewed & are unremarkable except as noted in HPI & below Physical Exam Physical Exam: Gen: WD/WN, obese, female, sitting in bedside chair, NAD, A&O x3, poor hygeine HEENT: Normocephalic, atraumatic, conjunctivae moist, sclerae anicteric, mucous membranes moist. Lung: Clear to Auscultation bilaterally, no wheezes/rales/rhonchi Heart: Regular rate, regular rhythm, no murmurs, rubs, or gallops Abdomen: Soft, NT, ND +BS x 4, obese abdomen Extremities: obese lower ext Skin: Warm, no rash, negative turgor. Lumbar dressing CDI Results & Data Results & Data Vital Signs (Past 12 Hours) Vital Signs Temp Pulse Resp BP Pulse Ox O2 Del Method 09/13/22 07:31 36.5 C 70 17 112/70 95 Room Air Laboratory Results Short CBC 09/13/22 Range/Units 06:18 WBC 9.97 (4.8-10.8) K/ul Hgb 10.8 L (12.0-16.0) g/dl Hct 33.6 L (37.0-47.0) % Plt Count 273 (130-400) K/uL BMP 09/13/22 06:18 Sodium 135 L Potassium 4.4 Chloride 105 Carbon Dioxide 23 BUN 16 Creatinine 0.53 L Glucose 210 H Calcium 9.1 Medications Administered Current Inpatient Medications Acetaminophen (Acetaminophen 500 Mg Tab) 1,000 mg PO Q8H PRN PRN Reason: MILD Pain Scale 1,2,3 & Pre PT Stop: 10/11/22 13:33 Al Hydrox/Mg Hydrox/Simethicone (Aluminum/Magnesium Susp 30 Ml Udc) 30 ml PO Q6H PRN PRN Reason: Dyspepsia Stop: 10/11/22 13:33 Bisacodyl (Bisacodyl 10 Mg Supp) 10 mg WI DAILY PRN PRN Reason: Constipation Stop: 10/13/22 13:34 Buspirone HCl (Buspirone 5 Mg Tab) 5 mg PO BID [facility] Stop: 10/11/22 20:59 Last Admin: 09/13/22 07:41 Dose: 5 mg Dextrose (Dextrose 50% 50 Ml Syringe) 25 - 50 ml IV UD PRN; Protocol PRN Reason: Hypoglycemia Protocol Stop: 10/11/22 14:44 Diazepam (Diazepam 5 Mg Tablet) 10 mg PO TID PRN PRN Reason: Muscle Spasm Stop: 10/11/22 14:20 Last Admin: 09/11/22 16:12 Dose: 10 mg Diphenhydramine HCl (Diphenhydramine Capsule 25 Mg Cap) 25 mg PO Q6H PRN PRN Reason: Allergic Rhinitis/Insomnia Stop: 10/11/22 13:33 Fluoxetine HCl (Fluoxetine Hcl 20 Mg Cap) 20 mg PO QAM [facility] Stop: 10/12/22 08:59 Last Admin: 09/13/22 07:41 Dose: 20 mg Fluticasone Propionate (Fluticasone Propionate Na Spr 16 Gm Btl) 2 sprays FRANCES HS [facility] Stop: 10/11/22 20:59 Last Admin: 09/12/22 19:27 Dose: 2 sprays Gabapentin (Gabapentin 100 Mg Cap) 100 mg PO TID [facility] Stop: 10/11/22 20:59 Last Admin: 09/13/22 07:41 Dose: 100 mg Gabapentin (Gabapentin 100 Mg Cap) 100 mg PO TID [facility] Stop: 10/11/22 20:59 Last Admin: 09/13/22 07:41 Dose: 100 mg Glucagon (Glucagon For Inj 1 Mg Vial) 1 mg IM UD PRN; Protocol PRN Reason: Hypoglycemia Protocol Stop: 10/11/22 14:44 Glucose (Glucose 40% Gel 15 Gm Tube) 15 - 30 gm PO UD PRN; Protocol PRN Reason: Hypoglycemia Protocol Stop: 10/11/22 14:44 Glucose (Glucose 10 Tab/Tube) 4 - 8 tab PO UD PRN; Protocol PRN Reason: Hypoglycemia Protocol Stop: 10/11/22 14:44 Hydromorphone HCl (Hydromorphone Inj 1 Mg/Ml Syringe) 1 mg IV Q3H PRN PRN Reason: severe pain (scale 7-10) Stop: 09/25/22 13:33 Last Admin: 09/12/22 11:28 Dose: 1 mg Promethazine HCl 12.5 mg/ (Sodium Chloride) 50.5 mls @ 202 mls/hr IV Q6H PRN PRN Reason: Nausea &/or Vomiting Stop: 10/11/22 13:33 Dexamethasone 8 mg/ Syringe 2 mls @ 1 mls/min IV DAILY [facility] Stop: 10/12/22 11:59 Last Admin: 09/13/22 07:40 Dose: 1 mls/min Insulin Aspart (Insulin Aspart Per Unit Charge) 0 units SC ACHS [facility] Stop: 10/12/22 12:14 Last Admin: 09/13/22 08:48 Dose: 45 units Insulin Glargine (Lantus Per Unit Charge) 72 units SC DAILY [facility] Stop: 10/13/22 08:59 Last Admin: 09/13/22 08:47 Dose: 72 units Lisinopril (Lisinopril 10 Mg Tab) 10 mg PO QAM [facility] Stop: 10/12/22 08:59 Last Admin: 09/12/22 08:12 Dose: 10 mg Lorazepam (Lorazepam 2 Mg/1 Ml Vial) 0.5 mg IV Q8H PRN PRN Reason: Sedation/Anxiety Stop: 10/11/22 13:33 Last Admin: 09/11/22 16:13 Dose: 0.5 mg Magnesium Hydroxide (Magnesium Hydroxide Susp 30 Ml Udc) 30 ml PO Q24H PRN PRN Reason: Constipation Stop: 10/11/22 13:33 Metoclopramide HCl (Metoclopramide Hcl Inj 5 Mg/Ml 2 Ml Vial) 10 mg IV Q6H PRN PRN Reason: Nausea &/or Vomiting Stop: 10/11/22 13:33 Miscellaneous (Carbohydrates For Hypoglycemia ) 15 - 30 gm PO UD PRN PRN Reason: Hypoglycemia Treatment Stop: 10/11/22 14:44 Miscellaneous Information (Pharmacy Glycemic Mgmt Consult) 1 each N/A UD PRN PRN Reason: Consult Stop: 10/11/22 13:33 Naloxone HCl (Naloxone Hcl 0.4 Mg/1 Ml Vial/Carp) 0.1 mg IV Q5M PRN PRN Reason: Oversedation/respiratory dep Stop: 10/11/22 13:33 Ondansetron HCl (Ondansetron Inj 2 Mg/Ml 2 Ml Vial) 4 mg IV Q6H PRN PRN Reason: Nausea &/or Vomiting Stop: 10/11/22 13:33 Ondansetron HCl (Ondansetron 4 Mg Od Tab) 4 mg PO Q6H PRN PRN Reason: Nausea Stop: 10/11/22 13:33 Oxycodone HCl (Oxycodone Hcl Ir 5 Mg Tab (Immediate Release)) 5 - 10 mg PO Q4H PRN PRN Reason: mod to severe pain Stop: 09/25/22 13:33 Last Admin: 09/13/22 03:30 Dose: 10 mg Ropinirole HCl (Ropinirole Hcl 0.25 Mg Tablet) 0.5 mg PO HS [facility] Stop: 10/11/22 20:59 Last Admin: 09/12/22 19:28 Dose: 0.5 mg Senna/Docusate Sodium (Docusate Sodium/Senna 50/8.6mg Tab) 2 tab PO HS [facility] Stop: 10/11/22 20:59 Last Admin: 09/12/22 19:32 Dose: 2 tab Simvastatin (Simvastatin 20 Mg Tab) 20 mg PO HS [facility] Stop: 10/11/22 20:59 Last Admin: 09/12/22 19:29 Dose: 20 mg Sodium Biphosphate/Sodium Phosphate (Sod Phosphate/Sod Biphosphate Enema 132 Ml Btl) 132 ml WI ONE PRN PRN Reason: Constipation Stop: 10/11/22 13:33 Tramadol HCl (Tramadol Hcl 50 Mg Tablet) 50 - 100 mg PO Q4H PRN PRN Reason: Moderate-Severe pain & Pre PT Stop: 10/11/22 13:33
--- NOTE | 2022-09-13 12:17 | Pharmacy Report ---
Pharmacy Glycemic Short Note 2 - Date of Service September 13, 2022 - Glycemic Short BSG Results (Last 24 hours): 09/12/22 09/12/22 09/13/22 17:02 20:55 06:18 Glucose 210 H POC Glucose 219 H 267 H 09/13/22 09/13/22 08:12 11:48 Glucose POC Glucose 223 H 220 H OUTPATIENT ANTIDIABETIC REGIMEN: * Amaryl 2 mg PO qPM * Ozempic 1 mg SQ weekly * Humalog HbA1c: 7.8% (08/21/22) ASSESSMENT: 09/13/22 * Patient's BSGs yesterday were 171-156-(dexamethasone 8 mg IV given)-219-267 mg/dL. * Patient received 123 units of insulin (50 units of basal and 73 units of bolus). * Fasting today is 233 mg/dL. Steroids continue. * Increase basal by 20% to 72 units due to elevated fasting. * Tighten Novolog since BSGs trended upwards. 09/12/22: * BSGs well-controlled yesterday * POD #8 s/p lumbar decompression/fusion - weakness/pain not believed to be related to an infection * No further surgical intervention planned at this time - diet initiated * Dexamethasone 8 mg IV daily started today - will increase insulin s ignificantly today 09/11/22: * Ms Gregory is a 57 y/o F with a PMH of T2DM who presents with leg weakness s/p lumbar surgery on 09/04/22. * During her previous admission, patient required > 100 units of insulin BUT she was received dexamethasone 6 mg IV daily. * Random BSG in the ER today (day of admission) was 187 mg/dL. * For basal insulin, will start with Lantus 25 units with dinner. This is half of weight-based stress of 3 adjusted body weight. Patient is to be NPO tomorrow. During previous admission, patient received 50-60 units of insulin per day. This was primarily driven by steroids. It is reasonable to half this dose when steroids are not involved. * Novolog weight-based stress of 3. More frequent checks since Lantus is less aggressive. PLAN FOR INPATIENT GLYCEMIC CONTROL: * Hold outpatient oral diabetes medications * Basal insulin * Lantus 72 units SQ daily with dexamethasone * Bolus insulin * NovoLog per scale ACHS or Q6hrs while NPO * Goal Range: Low 110 mg/dL - High 140 mg/dL * Correction Factor: 8 mg/dL/unit * Nutritional / Prandial insulin per carb ratio of 1 unit per 2 grams CHO consumed
[2022-09-13] MEDS ORDERED: bisacodyL 10 MG SUPP PR PRN (13:35)
[2022-09-13] MEDS: FLUTICASONE PROPIONATE NA SPR 16 GM BTL NAE SCH (19:29)
[2022-09-13] MEDS: rOPINIRole HCL 0.25 MG TABLET PO SCH (19:30)
[2022-09-13] MEDS: SIMVASTATIN 20 MG TAB PO SCH (19:31)
[2022-09-13] MEDS: DOCUSATE SODIUM/SENNA 50/8.6MG TAB PO SCH (19:33)
[2022-09-14] MEDS: oxyCODONE HCL IR 5 MG TAB (IMMEDIATE RELEASE) PO PRN ×4 (00:45→20:23)
--- NOTE | 2022-09-14 08:37 | Discharge Summary ---
Date of Service September 14, 2022 Admission HPI Per Admitting Provider This is a 57-year-old female who is status post multilevel lumbar compression fusion. She had done well postoperatively and went to return home became somewhat inactive. She was not ambulating on a regular basis. She did not denies any fevers chills. Denies radicular complaints at rest. She states majority of symptoms is along the bilateral lateral thighs but not extending below the knees. Principal Diagnosis Lumbar spinal stenosis with morbid obesity Discharge Data Allergies Allergy/AdvReac Type Severity Reaction Status Date / Time sulfamethoxazole Allergy Intermediate Hives Verified 09/11/22 16:19 [From Bactrim] trimethoprim [From Bactrim] Allergy Intermediate Hives Verified 09/11/22 16:19 Consultations 09/11/22 13:24 ED Decision to Admit Stat 09/11/22 19:29 Consult Hospitalist Routine Ordered Studies 09/11/22 13:35 MR lumbar spine wo con Urgent Hospital Course (1) Status post lumbar spine surgery for decompression of spinal cord: Patient was admitted with failure to thrive at home. She did improve throughout her hospital stay with physical therapy. She has been recommended to go to rehab and will have her transferred there today if possible. Total Time Total Time Spent Total Time Spent (In Minutes): 20 minutes Discharge Plan Discharge Items Patient Disposition: Transfer Inpatient Rehab Fac Reason For Visit: WEAKNESS; PAIN IN LEGS Discharge Diagnosis: Status post lumbar decompression fusion Condition on Discharge: Good Activity: As commented below Non-emergency contact: Primary Care Provider Call non-emergency contact if: you have any medication questions Follow-up/Referrals: Edgar Jain DO [Primary Care Provider] - Diet: Regular Addtl Attending Provider Instructions: ACTIVITY RECOMMENDATIONS: SELF CARE INSTRUCTIONS AFTER THORACIC/LUMBAR FUSIONS 1. You may walk to your tolerance. It is good exercise for your legs and back. Expect some back and intermittent leg aches and pains. 2. You may perform "counter-top" level activities (make a sandwich, shelia with a project, etc.). 3. No bending or lifting of more than 10 pounds or back twisting of any nature (roll like a log when turning in bed). 4. You may ride in a car for 20-30 minutes at a time. No driving until after your first visit with your doctor. 5. Frequent changes of position and restricting sitting to 30 minutes at a time will help limit the amount of back spasms and stiffness you may experience. 6. You may discontinue the use of ambulatory aids (cane, crutches, etc.) once your strength and confidence allow. 7. You may machine tailer the shower and let water strike your incision when you arrive home at least once daily. Do not take a tub bath, sit in a hot tub or go into a swimming pool until after your first recheck in the office. SPECIAL CARE INSTRUCTIONS: VERY IMPORTANT TO READ AND REVIEW A. Your surgical incision has been closed with a cosmetic suture under the skin that will dissolve in about 6 weeks. In 14 days, you can use a pair of clean scissors and cut the suture that is left outside of the skin at the ends of your incision. 1. The small skin tapes can be removed 7 days after surgery if they have not fallen off by that point. 2. You may keep the wound open to air as much as possible to promote healing after post-op day number 5 unless told otherwise by your doctor. 3. If you think the wound looks like it is becoming infected (redness or worsening drainage) and/or you are experiencing fever, chill or worsening back pain and muscle spasms, contact the office so that we may evaluate you as soon as possible. B. Complications are uncommon, but please contact us if you have any signs or symptoms of: 1. wound infection (fever higher than 102.5 degrees F, redness, separation of wound, drainage, or increasing pain from the incision) 2. blood clots in legs (pain, swelling, redness and warmth in legs) 3. urinary tract infection (fever higher than 102.5 degrees F, burning upon urination or increased frequency of urination) 4. nerve problems (inability to walk on your toes or heels, numbness, loss of bowel or bladder control) 5. any other symptoms that concern you C. Please call the office at if you have any concerns or questions about your operation or recovery. D. No smoking! Smoking drastically decreases the chance of a solid fusion. E. Do not take any anti-inflammatory medications (Indocin, Advil, Motrin, Aspirin, Naprosyn, etc.) as these may inhibit the chance of a solid fusion. Tylenol is okay to take for pain. MANAGING PAIN AFTER SPINAL SURGERY 1. Narcotic medication is intended for short-term use and will be provided for surgical pain. Surgical pain usually lasts for a period of 4-6 weeks. Narcotic medication includes Percocet, Vicodin, Darvocet, Tylenol #3 or Lortab. 2. Longer-term pain is more appropriately treated with non-narcotic medication such as Tylenol ES. 3. Muscle spasm is not appropriately treated with narcotics. Muscle relaxers such as Soma, Flexeril or Skelaxin can be used along with Tylenol ES. 4. Remember that we all live with some "aches and pains". This is not unusual or uncommon after an injury or as we get older. a. Back pain is expected and may include muscle spasms for 4 to 6 weeks after surgery. The pain should gradually improve. If the pain worsens for no apparent reason, please contact the office. b. Intermittent leg pain may also be experienced and should not be concerned about unless it worsens for no apparent reason. If so, please contact the office. 5. We will provide appropriate medication within the normal guidelines of their prescribed use. We will also be very cautious and aware of potential abuse and extended duration of patients' medication needs. a. Pain medications are for your comfort and to assist with sleep and rest so that the tissue can heal. They are not provided in order to return to normal activity and should not be used through the day. To do so or worsening pain at night can result from ongoing tissue damage and development of tolerance to the prescribed medicine. 6. Please allow 2-3 days to process refills. Prescriptions will not be mailed but must be picked up at the office. FOLLOW UP VISIT: Keep your scheduled follow-up appointment. Any questions, please call the office at . Pending Studies at Discharge: No Stand-Alone Forms: My [facility] Skilled Items Patient informed of condition?: Yes DNR: No Discharge Level of Care: Acute rehab Communicable Disease: No Discharge Prognosis: Improving Lines: None Urinary Catheter: No Medications and DC Order Prescriptions: New oxycodone 5 mg tablet 5 mg PO Q6H PRN (Reason: pain) Qty: 30 0RF Continued (DME) Wheeled Walker Misc See Rx Instructions .MEDSUPPLY Qty: 1 0RF Rx Instructions: As directed ibuprofen 200 mg tablet 600 mg PO Q6H PRN (Reason: Pain) Rx Instructions: ON HOLD SINCE BACK SURGERY buspirone 5 mg Tablet 5 mg PO BID acetaminophen-codeine 300-30 mg Tablet 1 tab PO BID PRN (Reason: Pain) glimepiride 2 mg Tablet 2 mg PO PM simvastatin 20 mg Tablet 20 mg PO HS ropinirole 0.5 mg Tablet 0.5 mg PO HS lisinopril 10 mg Tablet 10 mg PO QAM diazepam [Valium] 10 mg Tablet 10 mg PO TID PRN (Reason: Muscle Spasm) fluoxetine [Prozac] 20 mg Capsule 20 mg PO QAM fluticasone propionate 50 mcg/actuation [place],Suspension 2 spray INTRANASAL HS insulin lispro [Humalog KwikPen Insulin] 100 unit/mL Insulin Pen See Rx Instructions .ROUTE .COMPLEX Patient Comments: pt uses sliding scale 61-150-0U,151-200 3U,201-250 %U,251-300 8U,301-350 10U,351-400 12U,>400 15U Rx Instructions: sliding scale 5unit-29units aspirin [Adult Low Dose Aspirin] 81 mg tablet,delayed release (DR/EC) 81 mg PO BID 42 Days Qty: 0 0RF Rx Instructions: PER PT "ONLY TAKES IN AM" Ozempic 1 mg/dose (4 mg/3 mL) pen injector 1 mg SUBCUT Q7D Rx Instructions: SUNDAY EVENINGS tramadol 50 mg tablet 50 mg PO Q6H PRN (Reason: pain, moderate) Qty: 30 0RF oxycodone 5 mg tablet 5 mg PO Q6H PRN (Reason: pain) Qty: 30 0RF gabapentin 100 mg Capsule 100 mg PO TID Discharge Orders: Discharge Order (Routine); Ordered 09/14/22 Ordered By: Rey Bliss/Other Patient Handouts: Managing Type 2 Diabetes, Understanding Carbohydrates, Diabetes: Meal Planning, Special Foot Care for Diabetes Admission Data Admit Date/Time: 09/11/22 13:34 Attending Provider: Rey Soria Admit Provider: Rey Soria Primary Care Provider: Edgar Jain Other Providers: Rey Soria ; Riley Herrmann ; Flavia Gil
[2022-09-14] MEDS: FLUoxetine HCL 20 MG CAP PO SCH (08:46)
[2022-09-14] MEDS: busPIRone 5 MG TAB PO SCH ×2 (08:46→20:22)
[2022-09-14] MEDS: GABAPENTIN 100 MG CAP PO SCH ×3 (08:46→20:23)
[2022-09-14] MEDS: dexAMETHasone 8 MG in SYRINGE 0 ML IV SCH (08:48)
[2022-09-14] MEDS: INSULIN ASPART PER UNIT CHARGE SC SCH ×4 (08:50→20:23)
[2022-09-14] MEDS: LANTUS PER UNIT CHARGE SC SCH (08:51)
--- NOTE | 2022-09-14 14:14 | Hospitalist Progress Note ---
Date of Service September 14, 2022 Assessment & Plan (1) Status post lumbar spine surgery for decompression of spinal cord: (2) Ambulatory dysfunction: (3) Diabetes mellitus, type 2: (4) Hypertension: Plan Neurogenic claudication due to lumbar spinal stenosis S/P L4-S1 decompression fusion by Dr. Soria on 09/04/22 Ambulatory dysfunction with pain/weakness pt admitted to med surg MRI:postsurgical changes are seen with recent lumbar fusion. There is a prominent epidural collection along the length of the surgical bed which may reflect postsurgical seroma, less likely abscess on postoperative day 2. However, if there is clinical concern, MRI with contrast can be performed. Dr. Soria consulted -no surgical intervention required, received IV steroids, plan for PT OT evaluation and possible DC to rehab or DC to pt afebrile, wbc stable at 11k, esr 66, crp 8.87 pain/wound management per ortho Acute blood loss anemia postsurgical hgb recovering well post op, 10.8 T2DM A1c 7.8 Glycemic pharmacy consulted - appreciate their management BSG 210 and 220 likely elevated in setting of steroid use Hypertension BP on lower side initially, now better. Can resume lisinopril. DVT prophylaxis: SCDS Dispo: uncertain but patient may need rehab, pt requesting Rollator walker with seat and breaks. Per primary team. Thank you for this consultation. We will follow the patient with you during their hospital stay. You can reach a member of the [facility] Hospitalist Team 20/11 via hospitalist role on tiger text. Admission and Anticipated Discharge Date Admission Date: September 11, 2022 Subjective Patient was seen and examined in room 353. She is status post lumbar surgery on 09/04/2022. Patient was sitting up in bed, on room air, NAD, reports improving lateral hip pain, reports feeling better, denies any headache or chills or fever or chest pain or belly pain, reports eating okay and moving bowels okay, reports being able to ambulate okay. Physical Exam Physical Exam: Gen: WD/WN, obese, female, sitting in bedside chair, NAD, A&O x3, poor hygeine HEENT: Normocephalic, atraumatic, conjunctivae moist, sclerae anicteric, mucous membranes moist. Lung: Clear to Auscultation bilaterally, no wheezes/rales/rhonchi Heart: Regular rate, regular rhythm, no murmurs, rubs, or gallops Abdomen: Soft, NT, ND +BS x 4, obese abdomen Extremities: obese lower ext Skin: Warm, no rash, negative turgor. Lumbar dressing CDI Results & Data Results & Data Vital Signs (Past 12 Hours) Vital Signs Temp Pulse Resp BP Pulse Ox O2 Del Method 09/14/22 07:26 36.9 C 60 17 134/80 97 Room Air
[2022-09-14] MEDS: rOPINIRole HCL 0.25 MG TABLET PO SCH (20:22)
[2022-09-14] MEDS: DOCUSATE SODIUM/SENNA 50/8.6MG TAB PO SCH (20:22)
[2022-09-14] MEDS: SIMVASTATIN 20 MG TAB PO SCH (20:23)
[2022-09-14] MEDS: FLUTICASONE PROPIONATE NA SPR 16 GM BTL NAE SCH (20:23)
[2022-09-15] MEDS: oxyCODONE HCL IR 5 MG TAB (IMMEDIATE RELEASE) PO PRN (01:00)
[2022-09-15] MEDS: GABAPENTIN 100 MG CAP PO SCH (08:46)
[2022-09-15] MEDS: dexAMETHasone 8 MG in SYRINGE 0 ML IV SCH (08:46)
[2022-09-15] MEDS: FLUoxetine HCL 20 MG CAP PO SCH (08:46)
[2022-09-15] MEDS: busPIRone 5 MG TAB PO SCH (08:47)
[2022-09-15] MEDS: INSULIN ASPART PER UNIT CHARGE SC SCH ×2 (08:50→12:52)
[2022-09-15] MEDS ORDERED: LANTUS PER UNIT CHARGE SC SCH (09:00)
--- NOTE | 2022-09-15 10:27 | Orthopedic Progress Note ---
Date of Service September 15, 2022 Assessment & Plan (1) Status post lumbar spine surgery for decompression of spinal cord: Plan: At this time are still going encouraged with physical therapy and ambulation as tolerated. We are awaiting final decision whether she is accepted at rehab or will go home with home health. She is stable from orthopedic standpoint for discharge. Admission and Anticipated Discharge Date Admission Date: September 11, 2022 Subjective Patient's been steadily improving since admission. She states her leg pain is improved. She is ambulating halls every few hours without difficulty. She is using her walker at all times. Physical Exam Physical Exam: On exam she appears comfortable. She has been strength testing. Results & Data Vital Signs (Past 12 Hours) Vital Signs Temp Pulse Resp BP Pulse Ox Pulse Ox O2 Del Method 09/15/22 07:28 36.4 C L 59 L 20 136/84 97 Room Air 09/14/22 23:36 98 O2 Del Method 09/15/22 07:28 09/14/22 23:36 Room Air
--- NOTE | 2022-09-15 12:01 | Pharmacy Report ---
Pharmacy Glycemic Short Note 2 - Date of Service September 15, 2022 - Glycemic Short BSG Results (Last 24 hours): 09/14/22 09/14/22 09/14/22 12:03 17:00 20:09 POC Glucose 254 H 227 H 253 H 09/15/22 09/15/22 07:56 11:51 POC Glucose 115 H 160 H OUTPATIENT ANTIDIABETIC REGIMEN: * Amaryl 2 mg PO qPM * Ozempic 1 mg SQ weekly * Humalog HbA1c: 7.8% (08/21/22) ASSESSMENT: 09/15/22 * BSGs yesterday were [phone] mg/dL. Patient has received 262 units of insulin yesterday (72 units of basal and 190 units of bolus). * Fasting continues to trend downwards today to 115 mg/dL. Reduce basal by 20%. * BSGs trended upwards throughout the day so tighten Novolog. * Dexamethasone continues. 09/13/22 * Patient's BSGs yesterday were 171-156-(dexamethasone 8 mg IV given)-219-267 mg/dL. * Patient received 123 units of insulin (50 units of basal and 73 units of bolus). * Fasting today is 233 mg/dL. Steroids continue. * Increase basal by 20% to 72 units due to elevated fasting. * Tighten Novolog since BSGs trended upwards. 09/12/22: * BSGs well-controlled yesterday * POD #8 s/p lumbar decompression/fusion - weakness/pain not believed to be related to an infection * No further surgical intervention planned at this time - diet initiated * Dexamethasone 8 mg IV daily started today - will increase insulin significantly today 09/11/22: * Ms Gregory is a 57 y/o F with a PMH of T2DM who presents with leg weakness s/p lumbar surgery on 09/04/22. * During her previous admission, patient required > 100 units of insulin BUT she was received dexamethasone 6 mg IV daily. * Random BSG in the ER today (day of admission) was 187 mg/dL. * For basal insulin, will start with Lantus 25 units with dinner. This is half of weight-based stress of 3 adjusted body weight. Patient is to be NPO tomorrow. During previous admission, patient received 50-60 units of insulin per day. This was primarily driven by steroids. It is reasonable to half this dose when steroids are not involved. * Novolog weight-based stress of 3. More frequent checks since Lantus is less aggressive. PLAN FOR INPATIENT GLYCEMIC CONTROL: * Hold outpatient oral diabetes medications * Basal insulin * Lantus 50 units SQ daily with dexamethasone * Bolus insulin * NovoLog per scale ACHS or Q6hrs while NPO * Goal Range: Low 110 mg/dL - High 140 mg/dL * Correction Factor: 8 mg/dL/unit * Nutritional / Prandial insulin per carb ratio of 1 unit per 1 grams CHO consumed
--- NOTE | 2022-09-15 17:34 | Hospitalist Progress Note ---
Date of Service September 15, 2022 Assessment & Plan (1) Status post lumbar spine surgery for decompression of spinal cord: (2) Ambulatory dysfunction: (3) Diabetes mellitus, type 2: (4) Hypertension: Plan Neurogenic claudication due to lumbar spinal stenosis S/P L4-S1 decompression fusion by Dr. Soria on 09/04/22 Ambulatory dysfunction with pain/weakness pt admitted to med surg MRI:postsurgical changes are seen with recent lumbar fusion. There is a prominent epidural collection along the length of the surgical bed which may reflect postsurgical seroma, less likely abscess on postoperative day 2. However, if there is clinical concern, MRI with contrast can be performed. Dr. Soria consulted -no surgical intervention required, received IV steroids, plan for PT OT evaluation pt afebrile, wbc stable at 11k, esr 66, crp 8.87 pain/wound management per ortho Acute blood loss anemia postsurgical hgb recovering well post op, 10.8 T2DM A1c 7.8 Glycemic pharmacy consulted - appreciate their management BSG 210 and 220 likely elevated in setting of steroid use Hypertension BP on lower side initially, now better. Can resume lisinopril. DVT prophylaxis: SCDS Dispo: uncertain but patient may need rehab, pt requesting Rollator walker with seat and breaks. Per primary team. Thank you for this consultation. We will follow the patient with you during their hospital stay. You can reach a member of the [facility] Hospitalist Team 20/11 via hospitalist role on tiger text. Admission and Anticipated Discharge Date Admission Date: September 11, 2022 Subjective Patient was seen and examined in room 353. She is status post lumbar surgery on 09/04/2022. Patient was sitting up in bed, on room air, NAD, reports improving lateral hip pain, reports feeling better, denies any headache or chills or fever or chest pain or belly pain, reports eating okay and moving bowels okay, reports being able to ambulate okay. Her hip pain has gotten significantly better now and she is being able to ambulate more easily. Physical Exam Physical Exam: Gen: WD/WN, obese, female, sitting in bedside chair, NAD, A&O x3, poor hygeine HEENT: Normocephalic, atraumatic, conjunctivae moist, sclerae anicteric, mucous membranes moist. Lung: Clear to Auscultation bilaterally, no wheezes/rales/rhonchi Heart: Regular rate, regular rhythm, no murmurs, rubs, or gallops Abdomen: Soft, NT, ND +BS x 4, obese abdomen Extremities: obese lower ext Skin: Warm, no rash, negative turgor. Lumbar dressing CDI Results & Data Results & Data Vital Signs (Past 12 Hours) Vital Signs Temp Pulse Resp BP BP Pulse Ox O2 Del Method 09/15/22 13:07 36.4 C L 59 L 20 112/70 136/84 97 09/15/22 07:28 36.4 C L 59 L 20 136/84 97 Room Air
== END 2022-09-15 13:44 | disposition home health service (06) ==
LOC: EDINP 12:14 → ED 12:14 → 3W 14:22